=== PATIENT | female | born 1960 | race Caucasian/White ===

== ENCOUNTER → 2018-05-13 09:51 | Outpatient (CLI) | payer BC, SELFPAY ==
--- NOTE | 2018-05-13 09:55 | US_ITS ---
STUDY: RENAL ULTRASOUND - COMPLETE REASON FOR EXAM: Female, 57 years old. Chronic kidney disease TECHNIQUE: Ultrasound evaluation of the kidneys was performed with real-time and static daniel-scale imaging. COMPARISON: None. FINDINGS: RIGHT KIDNEY: Normal location of the right kidney, which is normal in size. The right kidney measures 10.5 x 3.5 x 4.9 cm. There is a normal cortex of the right kidney. The renal cortex measures 1.5 cm. There is no right renal mass or cyst. There are no right renal calculi. There is an extrarenal pelvis versus mild hydronephrosis. DISTAL RIGHT URETER: There is non-visualization of the distal right ureter. There is no demonstrated right ureterovesical junction calculus. There is a visualized right ureteral jet. LEFT KIDNEY: Normal location of the left kidney, which is normal in size. The left kidney measures 10.9 x 6.5 x 4.7 cm. There is a normal cortex of the left kidney. The renal cortex measures 1.5 cm. There is no left renal mass or cyst. There are no left renal calculi. There is mild hydronephrosis of the left kidney. DISTAL LEFT URETER: There is non-visualization of the distal left ureter. There is no demonstrated left ureterovesical junction calculus. There is a visualized left ureteral jet. BLADDER: The distended urinary bladder has a volume of 96 ml. The empty urinary bladder has a volume of 70 ml. There is a normal wall thickness of the distended urinary bladder. There is no demonstrated mass within the urinary bladder. There are no demonstrated bladder calculi. US/Kidney and Bladder IMPRESSION: 1. There is a mild right hydronephrosis versus extrarenal pelvis. 2. There is a mild left hydronephrosis. 3. 78 cc of residual urine is noted in the bladder on the postvoiding image. Electronically Signed: Carlos Almendarez MD at 22:58 EST , Service support ,
== END ==
PROVIDERS: Family Provider Family Medicine; PCP Family Medicine; Referring Provider Internal Medicine Nephrology; Visit Provider Internal Medicine Nephrology
DX: N18.3 Chronic kidney disease, stage 3 (moderate) (principal)
CPT/HCPCS: 76770

== ENCOUNTER → 2018-06-05 13:45 | Outpatient (CLI) | payer BC, SELFPAY ==
[2018-06-05 15:11] LABS: Albumin, Serum 4.2 g/dL (3.2-5.0); BUN 23 mg/dL (7-18); BUN/Creat Ratio 21.1 RATIO (10-20); Calcium,Total 8.8 mg/dL (8.5-10.1); Chloride 107 mmol/L (98-107); Creatinine, Serum 1.09 mg/dL (0.55-1.02); EST Glomerular Filtration Rate 55 mL/min (>60); Est Glom Filt Rate - Afr Amer 67 mL/min (>60); Glucose 77 mg/dL (74-106); Phosphorus 2.8 mg/dL (2.5-4.9); Potassium 3.6 mmol/L (3.5-5.1); Sodium Level 138 mmol/L (136-145)
== END ==
PROVIDERS: Family Provider Family Medicine; PCP Family Medicine; Referring Provider Internal Medicine Nephrology; Visit Provider Internal Medicine Nephrology
DX: N18.3 Chronic kidney disease, stage 3 (moderate) (principal)
CPT/HCPCS: 36415; 80069

== ENCOUNTER → 2018-06-26 16:41 | Outpatient (CLI) | payer BC, SELFPAY ==
--- NOTE | 2018-06-26 16:43 | CT_ITS ---
STUDY: CT ABDOMEN AND PELVIS WITH AND WITHOUT CONTRAST REASON FOR EXAM: Female, 57 years old. Back pain and hydronephrosis RADIATION DOSAGE (If Supplied By Facility): CTDIvol = ( 9.13 ) mGy, DLP = ( 945.04 ) mGycm TECHNIQUE: Transaxial images were obtained from the dome of the diaphragm to the symphysis pubis without oral contrast. 100CC IV Isovue 300 was administered. Sagittal and coronal images were reconstructed. Individualized dose optimization techniques were used for this CT. COMPARISON: None. FINDINGS: The visualized lung bases are unremarkable. The visualized portions of the heart are within normal limits. Normal liver. Contracted thick-walled gallbladder without calcified stones possibly physiologic. If concern for gallbladder disease ultrasound recommended.. Normal spleen. Normal pancreas. Normal bilateral adrenal glands. No evidence for renal obstruction or ureteral calculus. There is a small cyst in left kidney. Normal visualized stomach. Normal small intestine. There is diffuse fecal retention within the colon and minor diverticular changes without evidence for acute diverticulitis. The appendix is visualized and appears normal. Atherosclerotic changes of the aorta without evidence for aneurysm. Normal inferior vena cava. Normal retroperitoneum. Normal urinary bladder. There is prominence of the pelvic vasculature shoulder which may be consistent with pelvic congestive type changes. Normal abdominal wall. Lumbar spine demonstrates mild spondylosis CT/CT Abd/Pelvis W/WO Contrast IMPRESSION: Contracted thick-walled gallbladder without calcified stones possibly physiologic. If concern for gallbladder disease ultrasound recommended. Diffuse fecal retention within the colon and minor diverticular changes without evidence for acute diverticulitis. Prominent pelvic vascularity which may be on the basis of pelvic congestive type changes. Electronically Signed: Jarocho Rodriguez MD at 20:49 EDT , Service support ,
== END ==
PROVIDERS: Family Provider Family Medicine; PCP Family Medicine; Referring Provider Urology; Visit Provider Urology
DX: N13.30 Unspecified hydronephrosis (principal)
CPT/HCPCS: 74178; Q9967

== ENCOUNTER → 2018-11-21 15:00 | Outpatient (CLI) | payer BC, SELFPAY ==
[2018-11-21 16:23] LABS: Albumin, Serum 3.8 g/dL (3.2-5.0); BUN 22 mg/dL (7-18); BUN/Creat Ratio 18.3 RATIO (10-20); Calcium,Total 8.8 mg/dL (8.5-10.1); Chloride 106 mmol/L (98-107); EST Glomerular Filtration Rate 49 mL/min (>60); Est Glom Filt Rate - Afr Amer 60 mL/min (>60); Glucose 77 mg/dL (74-106); Phosphorus 3.2 mg/dL (2.5-4.9); Potassium 3.9 mmol/L (3.5-5.1); Sodium Level 142 mmol/L (136-145)
== END ==
PROVIDERS: Family Provider Family Medicine; PCP Family Medicine; Referring Provider Internal Medicine Nephrology; Visit Provider Internal Medicine Nephrology
DX: N18.3 Chronic kidney disease, stage 3 (moderate) (principal)
CPT/HCPCS: 36415; 80069

== ENCOUNTER → 2018-12-02 09:09 | Outpatient (CLI) | payer BC, SELFPAY ==
--- NOTE | 2018-12-02 09:12 | NM_ITS ---
CLINICAL: 58-year-old female with reported history of hydronephrosis. 99m Tc MAG3 DIURETIC RENAL SCINTIGRAPHY COMPARISON: CT of the abdomen-pelvis report 06/26/2018, renal ultrasound report 05/13/2018 FINDINGS: Following the intravenous administration of 10.8 mCi of 99m Tc MAG3, renal images reveal: 1. The flow study demonstrates normal arterial phase distribution of the radiopharmaceutical to the bilateral kidneys. 2. Immediate static delayed nephrogram images depict prompt, homogeneous tracer uptake by the renal parenchyma of both kidneys. Collecting structure visualization is identified at 4 minutes following tracer injection bilaterally. Washout of the radiopharmaceutical by the renal parenchyma appears qualitatively normal in both kidneys. There is near complete spontaneous drainage of the right and left kidney collecting systems during 18 minutes of pre-Lasix sequential image acquisition. 3. The akzof-cy-cnky ratio of total renal parenchymal function was calculated to be 51/49. Furosemide 10 mg was administered intravenously. The post Lasix T 1/2 washout of the bilateral kidney residual collecting system activity was calculated to be < 10 minutes, (normal < 10 minutes). NM/Renal Scan w/o Pharm Interven IMPRESSION: 1. There is preservation of bilateral renal parenchymal-cortical function. 2. A normal physiologic response to induced diuresis is demonstrated in the right and left kidney collecting systems negating the presence of significant mechanical and/or functional obstruction. Electronically Signed: Jackson Eason DO at 10:06 EDT Tel , Service support ,
== END ==
PROVIDERS: Family Provider Family Medicine; PCP Family Medicine; Referring Provider Internal Medicine Nephrology; Visit Provider Internal Medicine Nephrology
DX: N13.30 Unspecified hydronephrosis (principal)
CPT/HCPCS: 78707; A9562

== ENCOUNTER → 2019-01-20 16:05 | Outpatient (CLI) | payer BC, SELFPAY ==
[2019-01-20 18:10] LABS: Albumin, Serum 3.8 g/dL (3.2-5.0); BUN 27 mg/dL (7-18); Calcium,Total 8.9 mg/dL (8.5-10.1); Chloride 105 mmol/L (98-107); Creatinine, Serum 1.04 mg/dL (0.55-1.02); EST Glomerular Filtration Rate 58 mL/min (>60); Est Glom Filt Rate - Afr Amer 70 mL/min (>60); Glucose 82 mg/dL (74-106); Phosphorus 3.5 mg/dL (2.5-4.9); Potassium 3.8 mmol/L (3.5-5.1); Sodium Level 138 mmol/L (136-145)
== END ==
PROVIDERS: Family Provider Family Medicine; PCP Family Medicine; Referring Provider Internal Medicine Nephrology; Visit Provider Internal Medicine Nephrology
DX: N18.3 Chronic kidney disease, stage 3 (moderate) (principal)
CPT/HCPCS: 36415; 80069

== ENCOUNTER 2024-10-03 05:16 | Day surgery (SDC) | payer BC, SELFPAY ==
[2024-10-03] VITALS (8 sets, daily range): BP systolic 96–121; BP diastolic 65–73; PULSE 50–62; RESP 14–16; TEMP 36.1–36.6; O2SAT 98–100; BMI 22.6
--- OUTSIDE RECORDS SUMMARY | 2024-10-03 05:19 | XMS RPT_ITS | CCD ---
Author Organization [facility] Care Team Providers Care Budget Engineer Name Role Phone Belkys Jarvis Primary Care Provider [phone] SIMONA GARCIA, BELKYS Fernández Primary Care Physician [phone] Belkys Jarvis Primary Care Provider [phone] Belkys Jarvis Primary Care Provider [phone] TASIA BARREL SCRAPER-ASSISTANT PROFESSOR OF ANTHROPOLOGY, DAJA A Primary Care Physi obdulia TASIA BARREL SCRAPER-ASSISTANT PROFESSOR OF ANTHROPOLOGY, DAJA A Attending Un available TASIA BARREL SCRAPER-ASSISTANT PROFESSOR OF ANTHROPOLOGY, DAJA A Primary Care Un available TASIA BARREL SCRAPER-ASSISTANT PROFESSOR OF ANTHROPOLOGY, DAJA A Attending Un available TASIA BARREL SCRAPER-ASSISTANT PROFESSOR OF ANTHROPOLOGY, DAJA A Primary Care Un available JEANNE FRANCO MD Attending Unavaila thais JARVIS MD, BELKYS Fernández Primary Care Unavailable DITCHANTONIA ZURITA DO Attending Unavailable TASIA BARREL SCRAPER-ASSISTANT PROFESSOR OF ANTHROPOLOGY, DAJA A Primary Care Un available Tasia ICING AND GLAZE MAKER-C, Daja Primary Care Provider [phone] Tasia ICING AND GLAZE MAKER-C, Daja Referring Provider [phone] Dr. Darrell Barney MD Attending Provider [phone] Dr. Darrell Barney MD Referring Provider [phone] Jerrica Esquivel Attending Provider [phone] TASIA BARREL SCRAPER-ASSISTANT PROFESSOR OF ANTHROPOLOGY, DAJA A Attending Un available TASIA BARREL SCRAPER-ASSISTANT PROFESSOR OF ANTHROPOLOGY, DAJA A Primary Care Un available TASIA BARREL SCRAPER-ASSISTANT PROFESSOR OF ANTHROPOLOGY, DAJA A Primary Care Un available ANTONIA MOJICA DO Admitting Unavailable ANTONIA MOJICA DO Attending Unavailable TASIA BARREL SCRAPER-ASSISTANT PROFESSOR OF ANTHROPOLOGY, DAJA A Primary Care Un available TASIA BARREL SCRAPER-ASSISTANT PROFESSOR OF ANTHROPOLOGY, DAJA A Attending Un available TASIA BARREL SCRAPER-ASSISTANT PROFESSOR OF ANTHROPOLOGY, DAJA A Attending Un available TASIA BARREL SCRAPER-ASSISTANT PROFESSOR OF ANTHROPOLOGY, DAJA A Primary Care Un available TASIA BARREL SCRAPER-ASSISTANT PROFESSOR OF ANTHROPOLOGY, DAJA A Attending Un available TASIA BARREL SCRAPER-ASSISTANT PROFESSOR OF ANTHROPOLOGY, DAJA A Primary Care Un available JEANNE FRANCO MD Attending Unavaila ble TASIA BARREL SCRAPER-ASSISTANT PROFESSOR OF ANTHROPOLOGY, DAJA A Primary Care Un available TASIA BARREL SCRAPER-ASSISTANT PROFESSOR OF ANTHROPOLOGY, DAJA A Primary Care Un available TASIA BARREL SCRAPER-ASSISTANT PROFESSOR OF ANTHROPOLOGY, DAJA A Attending Un available CLAUDIA SCHNEIDER DO Attending Unavailable TASIA BARREL SCRAPER-ASSISTANT PROFESSOR OF ANTHROPOLOGY, DAJA A Primary Care Un available ARTURAILEEN Escudero Attending Unavailable SIMONA, BELKYS BERMAN Primary Care Unavailab le ARTUR, AILEEN Attending Unavailable SIMONA, BELKYS BERMAN Primary Care Unavailab le ARTUR, AILEEN Attending Unavailable SIMONA, BELKYS BERMAN Primary Care Unavailab Daja Avina Primary Care Unavailable Darrell Barnye Referring Unavailable Darrell Barney Attending Unavailable Tasia Daja Primary Care Unavailable Daja Dozier Referring Unavailable Jerrica Cowan Attending Unavailable Daja Dozier Referring Unavailable Breann Dozierzabeth Primary Care Unavailable Darrell Barney Attending Unavailable Breann Dozierzabeth Primary Care Unavailable Darrell Barney Attending Unavailable Daja Dozier Referring Unavailable Breann Dozierzabeth Primary Care Unavailable Darrell Barney Attending Unavailable Amber Posada Attending Unavailable Belkys Morejon Primary Care Unavailable Tasia, Daja Primary Care Unavailable Td Wood Attending Unavailable Medications Current Medications Medication Drug Class(es) Dates Sig (Normalized) Sig (Original) Amino Acids (1 source) Start: 11-21-2023 Amino Acids powder Active NMA PO November 21, 2023 12:00am 24 hr buPROPion hydrochloride 300 mg extended release oral tablet (4 sources) Aminoketone Start: 08-25-2024 take 1 tablet by mouth once daily buPROPion XL (WELLBUTRIN XL) 300 mg 24 hr tablet Take 1 tablet by mouth once daily. 30 tablet 08/25/2024 Active Start: 07-21-2024 End: 08-25-2024 take 1 tablet by mouth once daily buPROPion XL (WELLBUTRIN XL) 150 mg 24 hr tablet Take 1 tablet by mouth once daily. 30 tablet 1 07/21/2024 08/25/2024 Discontinued chorionic gonadotropin 24927 unt/ml injectable solution (1 source) Gonadotropin Start: 11-21-2023 Chorionic Gonadotropin, Human 10,000 unit recon soln Active 2 U IM November 21, 2023 12:00am citalopram 20 mg oral tablet (20 sources) Serotonin Reuptake Inhibitor Start: 12-13-2023 End: 07-21-2024 take 1 tablet by mouth once daily citalopram hydrobromide (CELEXA) 10 mg tablet Take 1 tablet by mouth once daily. 15 tablet 12/13/2023 07/21/2024 Discontinued Start: 09-29-2019 End: 02-17-2025 citalopram 20 mg oral tablet Dose : 20 mg = 1 tab(s), Oral, qDay, # 90 tab(s), 0 Refill(s) Start Date: 06/25/24 Status: Ordered Quantity: 90.0 Unit: tab(s) Repeat number: 1 Comment on above: Take 1 tablet by jose th once daily. estradiol 1 mg oral tablet (20 sources) Estrogen Start: 02-02-20 End: 12-20-19 take 1 tablet by mouth once daily estradiol (ESTRACE) 1 mg tablet Take 1 tablet by mouth once daily. 90 tablet 3 12/21/2023 Active Comment on above: Take 1 tablet by jose th once daily. levothyroxine sodium 0.088 mg oral tablet (20 sources) l-Thyroxine Start: 08-26-19 take 1 tablet by mouth once daily before breakfast levothyroxine (SYNTHROID) 88 mcg tablet Take 1 tablet by mouth daily before breakfast. 90 tablet 08/25/2024 Active Start: 07-05-2024 take 1 tablet by jose th two times weekly levothyroxine (SYNTHROID) 88 mcg tablet Take 88 mcg by mouth two times a week. 07/05/2024 Active Start: 06-27-2024 levothyroxine 88 mcg (0.088 mg) oral tablet See Instructions, 1 tab(s) Oral Tu Thur. 75mcg AOD., 0 Refill(s) Start Date: 06/27/24 Status: Ordered Repeat number: 1 Start: 05-07-2024 End: 08-05-2024 Levoxyl 75 mcg (0.075 mg) or al tablet Dose : 75 mcg = 1 tab(s), Oral, qDay, except 88mcg Tu Thur, # 30 tab(s), 2 Refill(s), [id number], 166.5, cm, 02/13/24 7:19:00 EST, Height, kg, 02/13/24 7:19:00 EST, Dosing Weight Start Date: 05/07/24 Stop Date: 08/05/24 Status: Ordered Quantity: 30.0 Unit: tab(s) Repeat number: 3 Start: 02-08-2024 End: 06-01-2024 Levoxyl 88 mcg (0.088 mg) or al tablet Dose : 88 mcg = 1 tab(s), Oral, qDay, # 60 tab(s), 0 Refill(s), [id number], 166.5, cm, 02/13/24 7:19:00 EST, Height, kg, 02/13/24 7:19:00 EST, Dosing Weight Start Date: 04/02/24 Stop Date: 06/01/24 Status: Ordered Quantity: 60.0 Unit: tab(s) Repeat number: 1 Start: 10-03-2023 Levoxyl 75 mcg (0.075 mg) oral tablet See Instructions, one daily except Sunday take a 1/2 tablet, 0 Refill(s) Start Date: 10/03/23 Status: Ordered Start: 05-11-2023 End: 11-21-2023 Levothyroxine (Levoxyl) 75 m cg tablet Discontinued ug PO May 11, 2023 1:00am November 21, 2023 1:55pm Start: 10-13-2022 Levoxyl 75 mcg (0.075 mg) oral tablet Dose : 75 mcg = 1 tab(s), Oral, qDay, # 90 tab(s), 2 Refill(s), Pharmacy: [facility], 167.6, cm, 04/27/22 15:03:00 EST, Height, kg, 04/27/22 15:03:00 EST, Dosing Weight Start Date: 10/13/22 Status: Ordered Start: 05-01-2022 Levoxyl 100 mc g (0.1 mg) oral tablet Dose : 100 mcg = 1 tab(s), Oral, qDay, # 90 tab(s), 3 Refill(s), Pharmacy: [facility], 167.6, cm, 04/27/22 15:03:00 EST, Height, kg, 04/27/22 15:03:00 EST, Dosing Weight Start Date: 05/01/22 Status: Ordered Start: 04-27-2022 Levoxyl 75 mcg (0.075 mg) oral tablet Dose : 75 mcg = 1 tab(s), Oral, qDay, # 90 tab(s), 1 Refill(s), [facility], 167.6, cm, 04/27/22 15:03:00 EST, Height Start Date: 04/27/22 Status: Ordered Start: 06-03-2021 Levoxyl 100 mc g (0.1 mg) oral tablet Dose : 100 mcg = 1 tab(s), Oral, qDay, # 90 tab(s), 3 Refill(s), Pharmacy: [facility], 167.6, cm, 06/02/21 15:09:00 EDT, Height, kg, 06/02/21 15:09:00 EDT, Dosing Weight Start Date: 06/03/21 Status: Ordered Start: 06-03-2021 End: 08-25-2024 take 1 tablet by mouth once daily levothyroxine (LEVOXYL) 75 mcg tablet Take 75 mcg by mouth once daily. 06/03/2021 08/25/2024 Discontinued Start: 04-11-2021 End: 07-21-2024 levothyroxine (SYNTHROID) 10 0 mcg tablet Changed to 75 mcg daily June 2022 04/11/2021 07/21/2024 Discontinued (Course of therapy completed) Start: 04-11-2021 levothyroxine (SYNTHROID) 100 mcg tablet Dose : 100 mcg = 1 tab(s), Oral, qDay, # 90 tab(s), 3 Refill(s), Pharmacy: [facility], 167.6, cm, 09/08/20 15:44:00 EDT, Height, kg, 09/08/20 15:44:00 EDT, Dosing Weight 0 04/11/2021 Active Start: 07-24-2019 End: 09-29-2022 take 1 tablet by mouth once daily levothyroxine (SYNTHROID) 88 mcg tablet Indications: Postablative hypothyroidism Take 1 tablet by mouth once daily. 90 tablet 3 07/24/2019 09/29/2022 Discontinued (Dosage adjustment) Comment on above: Take 1 tablet by [facility] once daily. Dose : 100 mcg = 1 tab(s), Oral, qDay, # 90 tab(s), 3 Refill(s), Pharmacy: [facility], 167.6, cm, 09/08/20 15:44:00 EDT, Height, kg, 09/08/20 15:44:00 EDT, Dosing Weight Changed to 75 mcg da noa June 2022 liothyronine sodium 0.005 mg oral tablet (20 sources) l-Triiodothyronine Start: 10-10-2023 liothyronine 5 mcg oral tablet See Instructions, 2 tab(s) Oral . 1 tab(s) AOD. 90 day(s), # 180 tab(s), 3 Refill(s), Pharmacy: [facility] 166.5, cm, 10/03/23 15:51:00 EDT, Height, kg, 10/03/23 15:51:00 EDT, Dosing Weight Start Date: 10/10/23 Status: Ordered Quantity: 180.0 Unit: tab(s) Repeat number: 4 Start: 10-10-2023 End: 10-04-2024 liothyronine 5 mcg oral tabl et Dose : 10 mcg = 2 tab(s), Oral, qDay, # 180 tab(s), 3 Refill(s), Pharmacy: [facility] 166.5, cm, 10/03/23 15:51:00 EDT, Height, kg, 10/03/23 15:51:00 EDT, Dosing Weight Start Date: 10/10/23 Stop Date: 10/04/24 Status: Ordered Quantity: 180.0 Unit: tab(s) Repeat number: 4 Start: 09-24-2023 liothyronine 5 mcg oral tablet Dose : 15 mcg = 3 tab(s), Oral, qDay, # 42 tab(s), 0 Refill(s), Pharmacy: [facility] #[id number], 167.7, cm, 05/15/23 15:35:00 EST, Height, kg, 05/15/23 15:35:00 EST, Dosing Weight Start Date: 09/24/23 Status: Ordered Start: 05-01-2022 liothyronine 5 mcg oral tablet Dose : 15 mcg = 3 tab(s), Oral, qDay, # 270 tab(s), 3 Refill(s), Pharmacy: [facility], 167.6, cm, 04/27/22 15:03:00 EST, Height, kg, 04/27/22 15:03:00 EST, Dosing Weight Start Date: 05/01/22 Status: Ordered Start: 12-21-2021 liothyronine 5 mcg oral tablet Dose : 15 mcg = 3 tab(s), Oral, qDay, # 270 tab(s), 3 Refill(s), Pharmacy: [facility], 167.6, cm, 06/02/21 15:09:00 EDT, Height, kg, 06/02/21 15:09:00 EDT, Dosing Weight Start Date: 12/21/21 Status: Ordered Start: 07-24-2019 End: 11-21-2023 take 1 tablet by mouth once daily liothyronine (CYTOMEL) 5 mcg tablet Indications: Postablative hypothyroidism Take 1 tablet by mouth once daily. 90 tablet 3 07/24/2019 Active Comment on above: Take 1 tablet by jose once daily. Magnesium (9 sources) Start: 11-21-2023 take 2 tablets by mouth once daily Magnesium 250 mg tablet Active 500 mg PO daily November 21, 2023 12:00am MAGNESIUM ORAL T vidya by mouth. Active PEG-3350 with Electrolytes (Eqv-GoLYTELY) oral powder for reconstitution (1 source) Start: 01-09-2024 PEG-3350 with Electrolytes (Eqv-GoLYTELY) oral powder for reconstitution See Instructions, Take as directed starting 1 day before colonoscopy. Follow instructions as provided by your GI provider at [place]., # 1 EA, 0 Refill(s), Pharmacy: [facility]/pharm[facility] #[id number], Colon cancer screening, 166.5, cm, 01/09/24 15:55:00 EDT, Height, kg, 01/09/24 15:55:00 EDT, Dosing Weight Start Date: 01/09/24 Status: Ordered progesterone 100 mg oral capsule (20 sources) Progesterone Start: 02-02-2020 End: 12-20-2023 take 1 capsule by mouth once daily progesterone micronized (PROMETRIUM) 100 mg capsule Take 1 capsule by mouth once daily. 90 capsule 3 12/21/2023 Active Comment on above: Take 1 capsule by mo ut once daily. testosterone in cream base (CPD) (20 sources) Start: 07-07-2024 testosterone in cream base (CPD) Indications: Hormone replacement therapy (postmenopausal) Apply 1 g to affected area once daily. Comments for compounding pharmacy: Testosterone cream 25MG/2.5Gm 1 each 1 07/07/2024 Active Start: 03-27-2024 End: 07-07-2024 testosterone in cream base ( CPD) Indications: Hormone replacement therapy (postmenopausal) Apply 1 g to affected area once daily. Comments for compounding pharmacy: Testosterone cream 25MG/2.5Gm 1 Each 1 03/27/2024 07/07/2024 Discontinued Start: 03-27-2024 testosterone i n cream base (CPD) Indications: Hormone replacement therapy (postmenopausal) Apply 1 g to affected area once daily. Comments for compounding pharmacy: Testosterone cream 25MG/2.5Gm 1 Each 1 03/27/2024 Active Start: 11-20-2023 End: 03-26-2024 testosterone in cream base ( CPD) Indications: Hormone replacement therapy (postmenopausal) Apply 1 g to affected area once daily. Comments for compounding pharmacy: Testosterone cream 25MG/2.5Gm 1 Each 1 11/20/2023 03/26/2024 Discontinued Start: 11-20-2023 testosterone i n cream base (CPD) Indications: Hormone replacement therapy (postmenopausal) Apply 1 g to affected area once daily. Comments for compounding pharmacy: Testosterone cream 25MG/2.5Gm 1 Each 1 11/20/2023 Active Start: 04-02-2023 End: 11-20-2023 testosterone in cream base ( CPD) Indications: Hormone replacement therapy (postmenopausal) Apply 1 g to affected area once daily. Comments for compounding pharmacy: Testosterone cream 25MG/2.5Gm 1 Each 1 04/02/2023 11/20/2023 Discontinued Start: 04-02-2023 testosterone i n cream base (CPD) Indications: Hormone replacement therapy (postmenopausal) Apply 1 g to affected area once daily. Comments for compounding pharmacy: Testosterone cream 25MG/2.5Gm 1 Each 1 04/02/2023 Active Start: 09-29-2022 testosterone i n cream base (CPD) Indications: Hormone replacement therapy (postmenopausal) Apply 1 g to affected area once daily. Comments for compounding pharmacy: Testosterone cream 25MG/2.5Gm 1 Each 1 09/29/2022 Active Start: 09-14-2021 End: 09-29-2022 testosterone in cream base ( CPD) Indications: Low testosterone level in female Apply 1 g to affected area once daily. Comments for compounding pharmacy: Testosterone cream 25MG/2.5Gm 1 Each 1 09/14/2021 09/29/2022 Discontinued Start: 09-14-2021 testosterone i n cream base (CPD) Indications: Low testosterone level in female Apply 1 g to affected area once daily. Comments for compounding pharmacy: Testosterone cream 25MG/2.5Gm 1 Each 1 09/14/2021 Active Start: 05-30-2021 End: 09-14-2021 testosterone in cream base ( CPD) Indications: Low testosterone level in female Apply 1 g to affected area once daily. Comments for compounding pharmacy: Testosterone cream 25MG/2.5Gm 1 Each 1 05/30/2021 09/14/2021 Discontinued Comment on above: Apply 1 g to affecte d area once daily. Comments for compounding pharmacy: Testosterone cream 25MG/2.5Gm topiramate 25 mg oral tablet (3 sources) Start: 10-17-2019 End: 09-14-2021 topiramate 25 mg oral tablet Dose : 25 mg = 1 tab(s), Oral, qDay, # 90 tab(s), 3 Refill(s), [facility], 167.6, cm, 09/08/20 15:44:00 EDT, Height, kg, 09/08/20 15:44:00 EDT, Dosing Weight Start Date: 04/11/21 Status: Ordered Completed/Discontinued Medications Medication Drug Class(es) Dates Sig (Normalized) Sig (Original) [id number] 200 actuat albuterol 0.09 mg/actuat metered dose inhaler (5 sources) beta2-Adrenergic Agonist Start: 09-22-2021 End: 09-29-2022 take 2 puff(s) by inhalation every four hours as needed for wheezing albuterol HFA (PROVENTIL HFA, VENTOLIN HFA) 90 mcg/actuation inhaler Indications: Acute bronchitis, unspecified organism Inhale 2 Puffs as instructed every 4 hours as needed for wheezing/shortness of breath. 1 Inhaler 0 09/22/2021 09/29/2022 Discontinued Comment on above: Inhale 2 Puffs as in structed every 4 hours as needed for wheezing/shortness of breath. amoxicillin 500 mg oral capsule (2 sources) Penicillin-class Antibacterial Start: 05-11-2023 End: 05-18-2023 take 1 capsule by mouth every eight hours Amoxicillin 500 mg capsule Discontinued 500 mg PO Q8H 06 10May 11, 2023 1:00am May 17, 2023 1:00am May 18, 2023 1:04am Start: 12-28-2021 End: 01-07-2022 take 1 tablet by mouth twice daily amoxicillin (AMOXIL) 875 mg tablet Indications: Acute maxillary sinusitis, recurrence not specified Take 1 tablet by mouth twice daily for 10 days. 20 tablet 0 12/28/2021 01/07/2022 Active Comment on above: Take 1 tablet by jose twice daily for 10 days. azithromycin 250 mg oral tablet (4 sources) Macrolide Antimicrobial Start: 09-22-2021 End: 09-29-2022 azithromycin (ZITHROMAX Z-SHELLEY) 250 mg tablet Indications: Acute bronchitis, unspecified organism 2 tablets by mouth first day then 1 tablet the next 4 days 6 tablet 0 09/22/2021 09/29/2022 Discontinued Comment on above: 2 tablets by mouth f irst day then 1 tablet the next 4 days B6/folic/B12/coffee/phos phatid (NEURIVA PLUS ORAL) (6 sources) End: 09-29-2022 B6/folic/B12/coffee/morgan sphatid (NEURIVA PLUS ORAL) Take by mouth. gummy 0 09/29/2022 Discontinued (Discontinued by Patient) B6/folic/B12/cof fee/phosphatid (NEURIVA PLUS ORAL) Take by mouth. gummy 0 Active Comment on above: Take by mouth. gummy calcium carb,gluc/mag ox,gluc (CALCIUM MAGNESIUM ORAL) (7 sources) End: 09-29-2022 calcium carb,gluc/mag ox,gluc (CALCIUM MAGNESIUM ORAL) Take by mouth. 0 09/29/2022 Discontinued (Other) calcium carb,glu c/mag ox,gluc (CALCIUM MAGNESIUM ORAL) Take by mouth. 0 Active Comment on above: Take by mouth. COMPOUNDED PRESCRIPTION (7 sources) Start: 08-06-2018 End: 09-29-2022 COMPOUNDED PRESCRIPTION Testosterone 25MG/2.5 GM Cream Apply 1 Gram (4 Clicks) Topically Every Day As Directed 1 Tube 2 08/06/2018 09/29/2022 Discontinued (Duplicate Entry) Start: 08-06-2018 COMPOUNDED PRE SCRIPTION Testosterone 25MG/2.5 GM Cream Apply 1 Gram (4 Clicks) Topically Every Day As Directed 1 Tube 2 08/06/2018 Active Comment on above: Testosterone 25MG/2. 5 GM Cream Apply 1 Gram (4 Clicks) Topically Every Day As Directed methylPREDNISolone 4 mg oral tablet (4 sources) Corticosteroid Start: 2021 End: 2022 methylPREDNISolone (MEDROL, SHELLEY,) 4 mg Dose-Pack Indications: Acute bronchitis, unspecified organism Take by mouth per package instructions 1 Package 0 09/22/2021 09/29/2022 Discontinued Comment on above: Take by mouth per pa ckage instructions Multivitamin capsule (2 sources) End: 2021 take 1 capsule by mouth once daily Multivitamin capsule Take 1 capsule by mouth once daily. 0 09/14/2021 Discontinued Comment on above: [facility]. prasterone, DHEA, (DHEA ORAL) (2 sources) End: 2021 prasterone, DHEA, (DHEA ORAL) Take by mouth. 0 09/14/2021 Discontinued Comment on above: Take by mouth. 5000 mg testosterone 0.01 mg/mg topical gel (1 source) Androgen Start: 2023 End: 2023 Testosterone 50 mg/5 gram (1 %) gel Discontinued 1 NMA TD EVERY MORNING May 11, 2023 1:00am November 14, 2023 3:28pm [id number]-OREG- CAPRYL ORAL (10 sources) End: 2023 [id number]-OREG -CAPRYL ORAL Take by mouth once daily. 12/13/2023 Discontinued [id number] [id number]-[id number]-[id number] ORAL Take by mouth once daily. Active [id number]-TOPI-DGO [id number] ORAL Take by mouth once daily. 0 Active GUDCROR-UNMN-IEM HV-CEQQ-MCIWPM ORAL Take by mouth. 0 Active Comment on above: Take by mouth. Take by mouth once d aily. 24 hr venlafaxine 37.5 mg extended release oral capsule (2 sources) Serotonin and Norepinephrine Reuptake Inhibitor Start: 11-05-19 End: 09-15-19 22 take 1 capsule by mouth once daily venlafaxine ER (EFFEXOR XR) 37.5 mg 24 hr capsule Take 1 capsule by mouth once daily. 30 capsule 1 11/04/2020 09/14/2021 Discontinued Comment on above: Take 1 capsule [facility]. Problems Active Problems Problem Classification Problem Date Documented Date Episodic/Chronic Acute bronchitis (1 source) Acute bronchitis; Translations: [Acute bronchitis, unspecified] Episodic Cancer of thyroid (20 sources) Malignant tumor of thyroid gland; Translations: [Malignant neoplasm of thyroid gland] Onset: 07-06-2016 07-31-2005 Chronic Chronic kidney disease (20 sources) Chronic kidney disease stage 3; Translations: [Stage 3 chronic kidney disease] Onset: 09-29-2022 02-02-2020 Chronic Complications of surgical procedures or medical care (18 sources) Postablative hypothyroidism; Translations: [Postprocedural hypothyroidism] Onset: 07-06-2016 07-06-2016 Chronic Diseases of white blood cells (4 sources) Leukopenia; Translations: [Decreased white blood cell count, unspecified] Onset: 05-28-2024 11-28-2023 Chronic Comment on above: Discussed Leukopenia , her counts are normal now. Malaise and fatigue (1 source) Fatigue; Translations: [Other fatigue] 07-21-2024 Episodic Menopausal disorders (18 sources) Menopausal symptom; Translations: [Menopausal and female climacteric states] 09-10-2018 Chronic Menopausal disorders (20 sources) Long-term current use of testosterone replacement therapy; Translations: [Hormone replacement therapy] Onset: 07-06-2016 Episodic Mood disorders (20 sources) Depressive disorder; Translations: [Depression] Onset: 07-06-2016 07-06-2016 Chronic Other diseases of kidney and ureters (1 source) Kidney disease; Translations: [Disorder of kidney and ureter, unspecified] 05-11-2023 Episodic Other lower respiratory disease (2 sources) Cough; Translations: [Acute cough] Episodic Other nervous system disorders (9 sources) Disturbance of attention 05-18-2020 Chronic Other upper respiratory infections (1 source) Acute maxillary sinusitis; Translations: [Acute maxillary sinusitis, unspecified] Episodic Otitis media and related conditions (1 source) Acute left otitis media; Translations: [Otitis media, unspecified, left ear] 05-11-2023 Episodic Poisoning by other medications and drugs (8 sources) Poisoning by vitamin D 04-27-2022 Episodic Thyroid disorders (11 sources) Hypothyroidism; Translations: [Hypothyroidism, unspecified] 02-02-2020 Chronic Thyroid disorders (1 source) Thyroid dysfunction; Translations: [Disorder of thyroid, unspecified] Episodic Unclassified (9 sources) History of total thyroidectomy 05-13-2020 Unclassified (6 sources) Patient encounter status 10-03-2023 Past or Other Problems Problem Classification Problem Date Documented Da te Episodic/Chronic Headache; including migraine (17 sources) Headache disorder; Translations: [Headache disorder] Onset: 07-06-2016 Resolved: 09-29-2022 07-06-2016 Episodic Nutritional deficiencies (20 sources) Vitamin D deficiency; Translations: [Vitamin D deficiency, unspecified] Onset: 07-06-2016 Resolved: 09-29-2022 07-06-2016 Chronic Other screening for suspected conditions (not mental disorders or infectious disease) (20 sources) Patient encounter status; Translations: [Encounter for screening mammogram for malignant neoplasm of breast] Onset: 03-22-2018 Resolved: 09-29-2022 Episodic Results Test Name Value Interpretation Reference Range Facility FT3on 08-23-2024 Free T3 [Mass/Vol] 2.16 pg/mL Low 2.30-4.00 [facility] Comment on above: Performed By: #### F T4, TSH, FT3 #### [address] [address] FT4on 08-23-2024 Free T4 [Mass/Vol] 0.69 ng/dL Low 0.76-1.46 [facility] Comment on above: Performed By: #### F T4, TSH, FT3 #### [address] [address] LABORATORYOrdered By: SYSTEM SYSTEM on 08-23-2024 Free T3 [Mass/Vol] 2.16 pg/mL Low 2.30 - 4. 00 pg/mL AO ADM SS Free T4 [Mass/Vol] 0.69 ng/dL Low 0.76 - 1. 46 ng/dL AO ADM SS TSH Qn 9.81 m[IU]/L High 0.36 - 3.74 mcIU/mL AO ADM SS TSHon 08-23-2024 TSH Qn 9.81 m[IU]/L High 0.36-3.74 [facility] Comment on above: Performed By: #### F T4, TSH, FT3 #### [address] [address] [place] MAMMOGRAM SCREENING BILAT ERAL W/TOMOon 08-08-2024 [facility] MAMMOGRAM SCREENING BILATERAL W/TIGIST ORIGINAL FROM: [address] [address] [address] PROCEDURE FOR: [address] [place] [address] Home: PID#: [id number] Exam#: [id number] : 1960 Age: 63 TO: DAJA DOZIER APRN [place] [address] Fax: NO FAX EXAMINATION: SCREENING DIGITAL BILATERAL MAMMOGRAM WITH TOMOSYNTHESIS, 07/17/2024 2:48 pm TECHNIQUE: Screening mammography of the bilateral breasts was performed with tomosynthesis. 2D standard and 3D tomosynthesis combination imaging performed through both breasts in the MLO and CC projection. Computer aided detection was utilized in the interpretation of this exam. COMPARISON: 03/24/2019, 03/23/2017 HISTORY: Breast cancer screening. FINDINGS: BREAST DENSITY: The breasts are heterogeneously dense, which may obscure small masses. There are bilateral benign breast calcifications. There are no significant masses or calcifications. IMPRESSION: No mammographic evidence of malignancy. Continued screening with annual mammograms is recommended. [facility] risk calculations, generated with the history provided, report this patient's 10 year risk and lifetime risk for developing breast cancer at 3.3% and 7.9%, respectively. Based on this assessment tool, if the patient's calculated lifetime risk is below 20%, then the patient is considered at average risk for developing breast cancer. If the patient's calculated lifetime risk is at or above 20%, then the patient is considered high risk for developing breast cancer and may be a candidate for supplemental breast MRI screening in addition to annual mammographic screening per the [employer]. BIRADS: BI-RADS: 2: Benign RECALL: 1 year screening RECALL TYPE: mammo LETTER SENT: Normal BI-RADS 1 and 2 Interpreted by: Aidan Alvarez MD Preliminary Report By: Aidan Alvarez MD Electronically signed By Aidan Alvarez MD Dictated Date: 08/08/2024 5:11:51 PM Prelim Date: 08/08/2024 5:15:21 PM Sign Date: 08/08/2024 5:15:21 PM Ordering Provider: DAJA DOZIER Extern: CORTES FLORES letter sent: Normal BI-RADS 1 and 2 Mammogram BI-RADS: 2 Benign Normal [facility] Gastroenterology Visit Repor ton 07-30-2024 Gastroenterology Visit Report [facility]astroenterology [address] [place] [address] OFFICE VISIT Date of Service: 07/30/24 MR#: [id number] Acct: [id number] Name: ЮЛИЯ SEQUEIRA Rep #: [id number] : 1960 Provider: MARY Caruso Age/Sex: 63/F [place] [facility] [place] Status: Signed Intake Vital Signs 05/28/24 16:02 Height 5 ft 6 in Weight: 140 lb 3 oz BMI 22.6 BP 127/82 H Blood Pressure Location Lt brachial Position Sitting Respiration 16 Pulse 64 Pulse Source Monitor Temp 98.0 F Pulse Oximetry (%) 98 Oxygen Delivery Method room air Intake Visit Reasons: Pre scope Chief Complaint: CT showing gastritis Allergies No Known Allergies Allergy (Verified 05/28/24 16:00) Patient : No Nurse's Note: OV 07/30/24 Pt here to establish care with [facility]. Pt reports fatigue, constipation, occasional trouble swallowing, and hx of hernias. PFSH Medical History Vitamin D deficiency Thyroid cancer CKD (chronic kidney disease), stage III Neutropenia Leukopenia Renal disease Hypothyroidism Surgical History History of tubal ligation History of thyroid surgery Family History Father Cancer stomach Mother Heart disease Kidney disease Social History Smoking Status: Never smoker alcohol intake: never substance use type: does not use HPI HPI Chief Complaint: CT showing gastritis Details: ЮЛИЯ SEQUEIRA, is a 63 F who presents to the office today for establishment with [facility]. CT abd/pelvis 4..; normal spleen, mild wall thickening of the body and antrum of the stomach with increased mucosal/ submucosal inhancement. Suggestive of gastritis/peptic ulcer disease. Pt here today after referral from PCP for abnormal CT showing gastritis/peptic ulcer disease. Pt underwent CT due to intermittent left sided abdominal pain. She denies any heartburn, n/v, early satiety or weight loss. She has a family hx of gastric cancer in her father and diverticulitis in her mother. She has never had an EGD. Last colonoscopy was in Jan 2024 with normal findings. She recently was found to be hypothyroid and was started on levothyroxine. This has caused her to gain weight but she is feeling better since starting new medication ROS Const Constitutional: No anorexia, fatigue, fever(s), weight change or sleep problems Eyes Eyes: No change in vision ENT ENT: No abnormal hearing, difficulty swallowing, mouth lesions, tongue swelling or throat swelling Resp Respiratory: No cough or shortness of breath Cardio Cardiology: No chest pain at rest, chest pain with exertion, shortness of breath or dyspnea on exertion Gastro GI: Positive for constipation; No difficulty swallowing Genitourinary-Female: No difficulty urinating or burning urination Musc Musculoskeletal: No joint pain, joint swelling, muscle weakness or decreased muscle mass Skin Skin: No hair loss in leg, yellowing of the eye, itchy eyes, rash, skin ulcer or skin swelling Neuro Neurology: No abnormal hearing, abnormal movements, confusion, unsteady gait/balance or memory loss Psych Psychiatric: No anxiety, No confusion and No memory loss Endo Endocrine: No fatigue or weight change Aller/Imm Allergy/Immunologic: No itchy eyes, throat swelling or tongue swelling Santiago/Lymp Hematologic/Lymphatic : No easy bleeding, easy bruising or enlarged lymph nodes Exam Const General: cooperative and healthy appearing Nutritional Appearance: thin Orientation: alert and awake HENMT Head: normal to inspection Neck Neck: normal visual inspection Chest Chest palpation inspection: normal inspection of the chest Resp Effort Inspection: normal respiratory effort and able to speak in complete sentences Cardio Rate: regular rate Rhythm: regular rhythm GI Inspection: normal to inspection Auscultation: normal bowel sounds Palpation: soft and no hepatosplenomegaly Assessment and Plan Assessment and Plan (1) Gastritis: Status: Acute Plan: This is a 63 yo female pt here today for evaluation after CT suggestive gastritis/peptic ulcer disease. Pt denies any heartburn, n,v, early satiety or unintentional weight loss. She endorses a family hx of gastric cancer in her father. She will undergo EGd to assess her upper GI tract for inflammation, ulcer or malignancy. -EGD -F/u after procedure Coding Level of Care Code Off vis,new,level 4 Diagnoses Gastritis K29.70 07/30/24 1655 Date Jerrica Perezigncaro Signature: Date (if applicable) CC: [facility] Emilio 07-09-2024 [facility] Telephone (OBGYWM) ERMIASЮЛИЯ R ([id number]) 1960 F Date Time Provider Department 07/09/24 AILEEN SIDDIQUI During your visit today, we recorded the following information about you: Rani Hargrove LPN 07/09/2024 4:37 PM Signed Faxed second attempt 07/08/2024 to [facility] with [facility] with confirmation. Rani Hargrove LPN Allergies As of Date: 07/09/2024 (No Known Allergies) Date Reviewed: 12/13/2023 Reviewed by: Allie Pelaez MA - Fully Assessed Prescriptions as of 07/09/2024 - testosterone in cream base (CPD) Apply 1 g to affected area once daily. Comments for compounding pharmacy: Testosterone cream 25MG/2.5Gm - citalopram (CELEXA) 20 mg tablet Take 1 tablet by mouth once daily. - citalopram (CELEXA) 20 mg tablet Take 1 tablet by mouth once daily. - estradiol (ESTRACE) 1 mg tablet Take 1 tablet by mouth once daily. - progesterone micronized (PROMETRIUM) 100 mg capsule Take 1 capsule by mouth once daily. - MAGNESIUM ORAL Take by mouth. - citalopram hydrobromide (CELEXA) 10 mg tablet Take 1 tablet by mouth once daily. - levothyroxine (SYNTHROID) 100 mcg tablet Changed to 75 mcg daily June 2022 - liothyronine (CYTOMEL) 5 mcg tablet Take 1 tablet by mouth once daily. Problem List As Of Date 07/09/2024 Noted Resolved MALIGN NEOPL THYROID [C73] Postablative hypothyroidism [E89.0] 07/06/2016 Thyroid cancer (HCC) [C73] 07/06/2016 Depression [F32.A] 07/06/2016 Headache disorder [R51.9] 07/06/2016 09/29/2022 Post-menopause on HRT (hormone replacement ther*07/06/2016 Vitamin D deficiency [E55.9] 07/06/2016 09/29/2022 Encounter for screening for malignant neoplasm *03/22/2018 09/29/2022 meopause hx of ablation [N95.1] Elevated serum creatinine [R79.89] 09/29/2022 Hormone replacement therapy (HRT) [Z79.890] Stage 3 chronic kidney disease (HCC) [N18.30] 09/29/2022 Diagnosed: 09/29/2022 Encounter Status:Closed by RANI HARGROVE on 07/09/[address] [facility] [address] ABDOMEN W/ CONTRASTon CT ABDOMEN W/ CONTRAST ORIGINAL EXAMINATION: CT ABDOMEN WITH CONTRAST 06/26/2024 11:30 am TECHNIQUE: CT of the abdomen was performed with the administration of intravenous contrast. Multiplanar reformatted images are provided for review. Automated exposure control, iterative reconstruction, and/or weight based adjustment of the mA/kV was utilized to reduce the radiation dose to as low as reasonably achievable. COMPARISON: None. HISTORY: ORDERING SYSTEM PROVIDED HISTORY: Reason for Exam: enlarged spleen Pt c/o recurring hernia LUQ for years. Recently has had hernia on RUQ as well. LUQ pain on palpation during physical exam yesterday. FINDINGS: Very minor degenerative changes are noted in the spine. No other osseous abnormality seen. The lung bases are unremarkable. Liver, spleen, adrenal glands and pancreas are unremarkable. Cortical nephrograms are present. Left lower pole renal cyst present. No other definite renal lesion. The spleen is normal in size, 11.6 cm length. There is mild wall thickening and increased enhancement of the mucosa at the body and antrum of the stomach. No significant adjacent infiltrative changes are visible. No other GI tract abnormality is evident. No adenopathy, free air or free fluid seen. There is a tiny fat containing umbilical hernia present. No other abdominal wall abnormality is evident. No additional contributory finding. IMPRESSION: 1. Normal spleen. 2. Mild wall thickening of the body and antrum of the stomach with increased mucosal/submucosal enhancement. These findings suggest an element of gastritis/peptic disease. EGD as clinically appropriate. 3. No other potential acute finding. Tiny fat containing umbilical hernia. No other body wall abnormality. Interpreted by: Aidan Mcfarland MD Preliminary Report By: Aidan Mcfarland MD Electronically signed By Aidan Mcfarland MD Dictated Date: 06/26/2024 11:34:17 AM Prelim Date: 06/26/2024 11:37:58 AM Sign Date: 06/26/2024 11:37:58 AM Ordering Provider: ANTONIA Liang [facility] .Auto Diffon 06-25-2024 Basophil, Absolute 0.1 10 3/mcL Normal 0.0-0.3 [facility] Comment on above: Performed By: #### F T4, TSH, FT3 #### [address] [address] Basophils/100 WBC (Bld) 1.3 % Normal 0.0-2.5 [facility] Comment on above: Performed By: #### F T4, TSH, FT3 #### [address] [address] Eosinophil, Absolute 0.3 10 3/mcL Normal 0.0-0.7 [facility] Comment on above: Performed By: #### F T4, TSH, FT3 #### [address] [address] Eosinophils/100 WBC (Bld) 4.5 % Normal 0.0-6.0 [facility] Comment on above: Performed By: #### F T4, TSH, FT3 #### [address] [address] Lymphocyte, Absolute 2.1 10 3/mcL Normal 0.9-4.3 [facility] Comment on above: Performed By: #### F T4, TSH, FT3 #### [address] [address] Lymphocytes/100 WBC (Bld) 33.0 % Normal 20.0-40.0 [facility] Comment on above: Performed By: #### F T4, TSH, FT3 #### [address] [address] Monocyte, Absolute 0.5 10 3/mcL Normal 0.1-1.4 [facility] Comment on above: Performed By: #### F T4, TSH, FT3 #### [address] [address] Monocytes/100 WBC (Bld) 7.2 % Normal 2.0-13.0 [facility] Comment on above: Performed By: #### F T4, TSH, FT3 #### [address] [address] Neutrophils/100 WBC (Bld) 54.0 % Normal 50.0-75.0 [facility] Comment on above: Performed By: #### F T4, TSH, FT3 #### [address] [address] .GFRon 06-25-2024 Estimated Glomerular Filtration Rate 47 ml/min/1.73sqm Normal [facility] Comment on above: Result Comment: Stages of Chronic Kidney Disease (CKD) Stage Description eGFR(ml/min/1.73 sq.m.) CKD 1 Normal kidney function or >=90 normal kindney function with possible kidney damage (ex. Proteinuria) CKD 2 Kidney damage with mild loss 60-89 of kidney function CKD 3a Mild to moderate loss of kidney 45-59 function CKD 3b Moderate to severe loss of 30-44 of kindey function CKD 4 Severe loss of kidney function 15-29 CKD 5 Kidney failure <15 Note: (go live 2024) the eGFR calculation was updated to the 2020 CKD-EPI creatinine equation without a race factor to calculate the eGFR results. Performed By: #### F T4, TSH, FT3 #### [address] [address] .NEUABSon 06-25-2024 Neutrophil, Absolute 3.5 10 3/mcL Normal 2.3-8.1 [facility] Comment on above: Performed By: #### F T4, TSH, FT3 #### [place] [address] [place], [place] [address] A1Con 06-25-2024 Glucose [Mass/Vol] 103 mg/dL Normal [facility] Comment on above: Result Comment: Bambi mated Average Glucose calculated by equation ((28.7xA1C)-46.7) Estimated average glucose (eAG) is a calculated value from Hemoglobin A1C and is traffic representative of the average blood glucose level in the last 2-3 month period. Normal range: less than 114 mg/dL Performed By: #### F T4, TSH, FT3 #### [address] [address] HbA1c (Bld) [Mass fraction] 5.2 % Normal 4.3-6.4 [facility] Comment on above: Performed By: #### F T4, TSH, FT3 #### [address] [address] CBCon 06-25-2024 Erythrocyte distribution width (RBC) [Ratio] 13.3 % Normal 11.5-15.5 [facility] Comment on above: Performed By: #### F T4, TSH, FT3 #### [place] [id number] Hematocrit (Bld) [Volume fraction] 39.5 % Normal 34.0-46.0 [facility] Comment on above: Performed By: #### F T4, TSH, FT3 #### [address] [address] Hgb 13.3 G/dL Normal 12.0-16.0 [facility] Comment on above: Performed By: #### F T4, TSH, FT3 #### [address] [address] MCH (RBC) [Entitic mass] 32.2 pg Normal 27.0-33.0 [facility] Comment on above: Performed By: #### F T4, TSH, FT3 #### [address] [address] MCHC 33.7 G/dL Normal 32.0-36.0 [facility] Comment on above: Performed By: #### F T4, TSH, FT3 #### [address] [address] MCV (RBC) [Entitic vol] 95.6 fL Normal 80.0-99.0 [facility] Comment on above: Performed By: #### F T4, TSH, FT3 #### [address] [address] Platelet 262 10 3/mcL Normal 150-450 [facility] Comment on above: Performed By: #### F T4, TSH, FT3 #### [address] [address] Platelet mean volume (Bld) [Entitic vol] 7.9 fL Normal 6.6-10.5 [facility] Comment on above: Performed By: #### F T4, TSH, FT3 #### [address] [address] RBC 4.13 10 6/mcL Normal 4.10-5.30 [facility] Comment on above: Performed By: #### F T4, TSH, FT3 #### [address] [address] WBC 6.5 10 3/mcL Normal 4.5-10.8 [facility] Comment on above: Performed By: #### F T4, TSH, FT3 #### [address] [address] CMPon 06-25-2024 Albumin Level 3.9 G/dL Normal 3.4-4.8 [facility] Comment on above: Performed By: #### F T4, TSH, FT3 #### [address] [address] Albumin/Globulin [Mass ratio] 1.4 {ratio} Normal 1.1-2.5 [facility] Comment on above: Performed By: #### F T4, TSH, FT3 #### [address] [address] ALP [Catalytic activity/Vol] 48 U/L Normal 40-135 [facility] Comment on above: Performed By: #### F T4, TSH, FT3 #### [address] [address] ALT [Catalytic activity/Vol] 27 U/L Normal 14-59 [facility] Comment on above: Performed By: #### F T4, TSH, FT3 #### [address] [address] AST [Catalytic activity/Vol] 19 U/L Normal 10-40 [facility] Comment on above: Performed By: #### F T4, TSH, FT3 #### [address] [address] Bili Total 0.4 mg/dL Normal 0.2-1.0 [facility] Comment on above: Result Comment: Use of this assay is not recommended for patients undergoing treatment with eltrombopag due to the potential for falsely elevated results. Performed By: #### F T4, TSH, FT3 #### [address] [address] BUN/Creatinine Ratio 27 ratio Normal 7-27 [facility] Comment on above: Performed By: #### F T4, TSH, FT3 #### [address] [address] Calcium [Mass/Vol] 9.1 mg/dL Normal 8.4-10.2 [facility] Comment on above: Performed By: #### F T4, TSH, FT3 #### [address] [address] Chloride [Moles/Vol] 101 mmol/L Normal 98-107 [facility] Comment on above: Performed By: #### F T4, TSH, FT3 #### [address] [address] CO2 [Moles/Vol] 31 mmol/L Normal 23-31 [facility] Comment on above: Performed By: #### F T4, TSH, FT3 #### [address] [address] Creatinine [Mass/Vol] 1.29 mg/dL High 0.55-1.02 [facility] Comment on above: Result Comment: Test ing performed on Siemens Dimension EXL analyzer using a modified kinetic Stevie technique. Performed By: #### F T4, TSH, FT3 #### [address] [address] Electrolyte Balance 4.0 mEq/L Normal 4.0-15.0 [facility] Comment on above: Performed By: #### F T4, TSH, FT3 #### [address] [address] Globulin 2.8 G/dL Normal 1.5-3.8 [facility] Comment on above: Performed By: #### F T4, TSH, FT3 #### [address] [address] Glucose [Mass/Vol] 91 mg/dL Normal 80-115 [facility] Comment on above: Performed By: #### F T4, TSH, FT3 #### [address] [address] Potassium [Moles/Vol] 4.0 mmol/L Normal 3.5-5.1 [facility] Comment on above: Performed By: #### F T4, TSH, FT3 #### [address] [address] Sodium [Moles/Vol] 136 mmol/L Normal 136-145 [facility] Comment on above: Performed By: #### F T4, TSH, FT3 #### [address] [address] Total Protein 6.7 G/dL Normal 6.4-8.2 [facility] Comment on above: Performed By: #### F T4, TSH, FT3 #### [address] [address] Urea nitrogen [Mass/Vol] 35 mg/dL High 7-18 [facility] Comment on above: Performed By: #### F T4, TSH, FT3 #### [address] [address] CRPon 06-25-2024 C-Reactive Protein 0.1 mg/dL Normal 0.0-0.3 [facility] Comment on above: Performed By: #### F T4, TSH, FT3 #### [address] [address] ESRon 06-25-2024 Erythrocyte Sed Rate <1 Normal 0-30 [facility] Comment on above: Performed By: #### F T4, TSH, FT3 #### [address] [address] FT3on 06-25-2024 Free T3 [Mass/Vol] 2.02 pg/mL Low 2.30-4.00 [facility] Comment on above: Performed By: #### F T4, TSH, FT3 #### [place] [address] FT4on 06-25-2024 Free T4 [Mass/Vol] 0.65 ng/dL Low 0.76-1.46 [facility] Comment on above: Performed By: #### F T4, TSH, FT3 #### [place] [address] TSHon 06-25-2024 TSH Qn 3.05 m[IU]/L Normal 0.36-3.74 [facility] Comment on above: Performed By: #### F T4, TSH, FT3 #### [place] [address] Absolute lymphocyte countOrd ered By: Darrell Barney on 05-28-2024 Lymphocytes Auto (Unsp spec) [#/Vol] 2.06 10*3/uL 0.83-4.51 [facility] Absolute neutrophil countOrd ered By: Darrell Barney on 05-28-2024 Neutrophils (Bld) [#/Vol] 2.7 10*3/uL 2.0-7.7 [facility] Anion gap in Serum or Plasma Ordered By: Darrell Barney on 05-28-2024 Anion gap [Moles/Vol] 11 mmol/L 5-15 [facility] Automated lymphocyte count a s percentage of total leukocytesOrdered By: Darrell Barney on 05-28-2024 Lymphocytes/100 WBC Auto (Unsp spec) 37.3 % 19-41 [facility] BUN/creatinine ratioOrdered By: Darrell Barney on 05-28-2024 Urea nitrogen/Creatinine [Mass ratio] 22.7 mg/mg High 10-20 [facility] Basophil percentageOrdered B y: Darrell Barney on 05-28-2024 Basophils/100 WBC (Bld) 1.1 % High 0-1 [facility] Bilirubin, totalOrdered By: Darrell Barney on 05-28-2024 Bilirubin [Mass/Vol] 0.31 mg/dL 0.00-1.30 [facility] CBC W/Diff, Automatedon 05-17 Absolute Lymph 2.06 X10 3/uL Normal 0.83-4.51 [facility] Comment on above: Performed By: #### L 100.0100, L500.4050, L504.2610 ####[facility] [address] [place], [address] Absolute Neut 2.7 X10 3/uL Normal 2.0-7.7 [facility] Comment on above: Performed By: #### L 100.0100, L500.4050, L504.2610 ####[facility] [address] [place], [address] Basophils/100 WBC (Bld) 1.1 % High 0-1 [facility] Comment on above: Performed By: #### L 100.0100, L500.4050, L504.2610 ####[facility] [address] [place], [address] Eosinophils/100 WBC (Bld) 4.5 % Normal 0-5 [facility] Comment on above: Performed By: #### L 100.0100, L500.4050, L504.2610 ####[facility] [address] [place], [address] Erythrocyte distribution width (RBC) [Ratio] 13.2 % Normal 11.6-14.6 [facility] Comment on above: Performed By: #### L 100.0100, L500.4050, L504.2610 ####[facility] [address] [place], [address] Hematocrit (Bld) [Volume fraction] 36.8 % Low 37-47 [facility] Comment on above: Performed By: #### L 100.0100, L500.4050, L504.2610 ####[facility] [address] [place], [address] Hemoglobin (Bld) [Mass/Vol] 12.3 g/dL Normal 12.0-15.0 [facility] Comment on above: Performed By: #### L 100.0100, L500.4050, L504.2610 ####[facility] [address] [place], [address] IG% 0.200 Normal 0.0-0.9 [facility] Comment on above: Result Comment: IG% - Immature Granulocytes (promyelocytes, myelocytes and metamyelocytes) > 1% indicates that a LEFT SHIFT is Present. Performed By: #### L 100.0100, L500.4050, L504.2610 ####[facility] [address] [place], [address] Lymphocytes/100 WBC (Bld) 37.3 % Normal 19-41 [facility] Comment on above: Performed By: #### L 100.0100, L500.4050, L504.2610 ####[facility] [address] [place], [address] MCH (RBC) [Entitic mass] 31.9 pg Normal 27.0-32.0 [facility] Comment on above: Performed By: #### L 100.0100, L500.4050, L504.2610 ####[facility] [address] [place], [address] MCHC (RBC) [Mass/Vol] 33.4 g/dL Normal 32-36 [facility] Comment on above: Performed By: #### L 100.0100, L500.4050, L504.2610 ####[facility] [address] [place], [address] MCV (RBC) [Entitic vol] 95.3 fL Normal 81-99 [facility] Comment on above: Performed By: #### L 100.0100, L500.4050, L504.2610 ####[facility] [address] [place], [address] Monocytes/100 WBC (Bld) 8.7 % Normal 0-10 [facility] Comment on above: Performed By: #### L 100.0100, L500.4050, L504.2610 ####[facility] [address] [place], [address] Neutrophils/100 WBC (Bld) 48.2 % Normal 47-70 [facility] Comment on above: Performed By: #### L 100.0100, L500.4050, L504.2610 ####[facility] [address] [place], [address] Nucleated RBC (Bld) [#/Vol] 0 10*3/uL Normal 0-5 [facility] Comment on above: Performed By: #### L 100.0100, L500.4050, L504.2610 ####[facility] [address] [place], [address] Platelet mean volume (Bld) [Entitic vol] 9.6 fL Normal 6.2-12.0 [facility] Comment on above: Performed By: #### L 100.0100, L500.4050, L504.2610 ####[facility] [address] [place], [address] Platelets (Bld) [#/Vol] 223 10*3/uL Normal 150-450 [facility] Comment on above: Performed By: #### L 100.0100, L500.4050, L504.2610 ####[facility] [address] [place], [address] RBC (Bld) [#/Vol] 3.86 10*6/uL Low 4.2-5.4 [facility] Comment on above: Performed By: #### L 100.0100, L500.4050, L504.2610 ####[facility] [address] [place], [address] RDW SD 45.8 fl High 35.1-43.9 [facility] Comment on above: Performed By: #### L 100.0100, L500.4050, L504.2610 ####[facility] [address] [place], [address] WBC (Bld) [#/Vol] 5.5 10*3/uL Normal 4.4-11.0 [facility] Comment on above: Performed By: #### L 100.0100, L500.4050, L504.2610 ####[facility] [address] [place], [address] Carbon dioxide, total [Moles /volume] in Central venous bloodOrdered By: Darerll Barney on 05-28-2024 CO2 [Moles/Vol] 24.4 mmol/L 21.0-32.0 [facility] Chloride assayOrdered By: Priscila Barney on 05-28-2024 Chloride [Moles/Vol] 103 mmol/L 98-108 [facility] Comprehensive Metabolic Prof ilon 05-28-2024 Albumin [Mass/Vol] 4.2 g/dL Normal 3.4-4.8 [facility] Comment on above: Performed By: #### L 100.0100, L500.4050, L504.2610 ####[facility] [address] [place], [address] Albumin/Globulin [Mass ratio] 2.0 {ratio} Normal 0.9-2.4 [facility] Comment on above: Performed By: #### L 100.0100, L500.4050, L504.2610 ####[facility] [address] [place], [address] ALK PHOS 40 U/L Normal 35-104 [facility] Comment on above: Performed By: #### L 100.0100, L500.4050, L504.2610 ####[facility] [address] [place], [address] ALT [Catalytic activity/Vol] 17 U/L Normal <=34 [facility] Comment on above: Performed By: #### L 100.0100, L500.4050, L504.2610 ####[facility] [address] [place], [address] AST [Catalytic activity/Vol] 26 U/L Normal <=31 [facility] Comment on above: Performed By: #### L 100.0100, L500.4050, L504.2610 ####[facility] [address] [place], [address] Bilirubin [Mass/Vol] 0.31 mg/dL Normal 0.00-1.30 [facility] Comment on above: Performed By: #### L 100.0100, L500.4050, L504.2610 ####[facility] [address] [place], [address] BUN/CRE 22.7 RATIO High 10-20 [facility] Comment on above: Performed By: #### L 100.0100, L500.4050, L504.2610 ####[facility] [address] [place], [address] Calcium [Mass/Vol] 9.3 mg/dL Normal 7.6-11.0 [facility] Comment on above: Performed By: #### L 100.0100, L500.4050, L504.2610 ####[facility] [address] [place], [address] Chloride [Moles/Vol] 103 mmol/L Normal 98-108 [facility] Comment on above: Performed By: #### L 100.0100, L500.4050, L504.2610 ####[facility] [address] [place], [address] CO2 [Moles/Vol] 24.4 mmol/L Normal 21.0-32.0 [facility] Comment on above: Performed By: #### L 100.0100, L500.4050, L504.2610 ####[facility] [address] [place], [address] Creatinine [Mass/Vol] 1.21 mg/dL High 0.70-1.20 [facility] Comment on above: Performed By: #### L 100.0100, L500.4050, L504.2610 ####[facility] [address] [place], [address] ECRCL 45.71 ml/min Low 50-250 [facility] Comment on above: Performed By: #### L 100.0100, L500.4050, L504.2610 ####[facility] [address] [place], [address] GAP 11 Normal 5-15 [facility] Comment on above: Performed By: #### L 100.0100, L500.4050, L504.2610 ####[facility] [address] [place], [address] GFR/1.73 sq M.predicted among non-blacks MDRD (S/P/Bld) [Vol rate/Area] 51 mL/min/{1.73_m2} Low >60 [facility] Comment on above: Result Comment: mL/m in/1.73m2 CKD-EPI Creatinine Equation (2020) Performed By: #### L 100.0100, L500.4050, L504.2610 ####[facility] [address] [place], [address] Globulin (S) [Mass/Vol] 2.1 g/dL Low 2.2-4.2 [facility] Comment on above: Performed By: #### L 100.0100, L500.4050, L504.2610 ####[facility] [address] [place], [address] Glucose [Mass/Vol] 92 mg/dL Normal 70-99 [facility] Comment on above: Performed By: #### L 100.0100, L500.4050, L504.2610 ####[facility] [address] [place], [address] Potassium [Moles/Vol] 3.8 mmol/L Normal 3.3-5.1 [facility] Comment on above: Performed By: #### L 100.0100, L500.4050, L504.2610 ####[facility] [address] [place], [address] Sodium [Moles/Vol] 137 mmol/L Normal 133-145 [facility] Comment on above: Performed By: #### L 100.0100, L500.4050, L504.2610 ####[facility] [address] [place], [address] T PROT 6.3 g/dL Normal 5.9-8.4 [facility] Comment on above: Performed By: #### L 100.0100, L500.4050, L504.2610 ####[facility] [address] [place], [address] Urea nitrogen [Mass/Vol] 28 mg/dL High 4-19 [facility] Comment on above: Performed By: #### L 100.0100, L500.4050, L504.2610 ####[facility] [address] [place], [address] Eosinophil percentageOrdered By: Darrell Barney on 05-28-2024 Eosinophils/100 WBC (Bld) 4.5 % 0-5 [facility] Erythrocyte distribution wid th ratioOrdered By: Darrell Barney on 05-28-2024 Erythrocyte distribution width (RBC) [Ratio] 13.2 % 11.6-14.6 [facility] Erythrocyte distribution wid th standard deviationOrdered By: Darrell Barney on 05-28-2024 Erythrocyte distribution width (RBC) [Ratio] 45.8 fl High 35.1-43.9 [facility] Glomerular filtration rate ( GFR) estimation/1.73 sq m using serum, plasma, or whole bOrdered By: Darrell Barney on 05-28-2024 GFR/1.73 sq M.predicted among non-blacks MDRD (S/P/Bld) [Vol rate/Area] 51 mL/min/{1.73_m2} Low >60 [facility] Comment on above: mL/min/1.73m2 CKD-EP I Creatinine Equation (2020) Hematocrit Auto (Bld) [Volum e fraction]Ordered By: Darrell Barney on 05-28-2024 Hematocrit (Bld) [Volume fraction] 36.8 % Low 37-47 [facility] Hemoglobin measurementOrdere d By: Darrell Barney on 05-28-2024 Hemoglobin (Bld) [Mass/Vol] 12.3 g/dL 12.0-15.0 [facility] Immature granulocytes/100 WB C Auto (Bld)Ordered By: Darrell Barney on 05-28-2024 Immature granulocytes/100 WBC (Bld) 0.200 % 0.0-0.9 [facility] Comment on above: IG% - Immature Granu locytes (promyelocytes, myelocytes and metamyelocytes) > 1% indicates that a LEFT SHIFT is Present. LDHon 05-28-2024 LDH 155 U/L Normal 84-246 [facility] Comment on above: Order Comment: 1 Performed By: #### L 100.0100, L500.4050, L504.2610 ####[facility] [address] [place], [address] Laboratory - Chemistry and C hemistry - challengeOrdered By: Darrell Barney on 05-28-2024 AST [Catalytic activity/Vol] 26 U/L <32 [facility] Lactate dehydrogenase (LDH) measurementOrdered By: Darrell Barney on 05-28-2024 LDH [Catalytic activity/Vol] 155 U/L 84-246 [facility] MCV (mean corpuscular volume ) determinationOrdered By: Darrell Barney on 05-28-2024 MCV (RBC) [Entitic vol] 95.3 fL 81-99 [facility] Mean corpuscular hemoglobin (MCH) determinationOrdered By: Darrell [facility] on 05-28-2024 MCH (RBC) [Entitic mass] 31.9 pg 27.0-32.0 [facility] Mean corpuscular hemoglobin concentration (MCHC) determinationOrdered By: Darrell Barney on 05-28-2024 MCHC (RBC) [Mass/Vol] 33.4 g/dL 32-36 [facility] Mean platelet volume determi nationOrdered By: Darrell Barney on 05-28-2024 Platelet mean volume (Bld) [Entitic vol] 9.6 fL 6.2-12.0 [facility] Monocyte percentageOrdered B y: Darrell Barney on 05-28-2024 Monocytes/100 WBC (Bld) 8.7 % 0-10 [facility] Neutrophil percentageOrdered By: Darrell Barney on 05-28-2024 Neutrophils/100 WBC (Bld) 48.2 % 47-70 [facility] Nucleated red blood cell per centageOrdered By: [facility] on 05-28-2024 Nucleated RBC/100 WBC (Bld) [Ratio] 0 % 0-5 [facility] Oncology Visit Reporton 05-17 Oncology Visit Report [facility] [place] [facility] [address] [place] [address] OFFICE VISIT Date of Service: 05/28/24 1551 MR#: [id number] Acct: [id number] Name: ЮЛИЯ SEQUEIRA Rep #: [id number] : 1960 From: Darrell Barney MD Age/Sex: 63/F Location[place] [facility] Status: Signed HPI Subjective Date of Service 05/28/24 Chief Complaint F/U for Leukopenia/Neutropeni a. History of Present Illness 63y.o.woman was found to have Leukopenia and neutropenia, referred for further evaluation. She feels well, had Thyroid cancer in 2003, had thyroidectomy follow, had uterine ablation 20yrs ago. WBC was normal. She is on observation. Had blood work and comes for follow up. Feels tired. [facility] Medical History Vitamin D deficiency Thyroid cancer CKD (chronic kidney disease), stage III Neutropenia Leukopenia Renal disease Hypothyroidism Surgical History History of tubal ligation History of thyroid surgery Family History Father Cancer stomach Mother Heart disease Kidney disease Social History Smoking Status: Never smoker alcohol intake: never substance use type: does not use Intake Vital Signs 11/28/23 16:19 05/28/24 15:52 05/28/24 16:02 Height 5 ft 6 in 5 ft 6 in 5 ft 6 in Weight: 64.495 kg 63.588 kg BMI 22.9 22.6 BP 114/66 127/82 H Blood Pressure Location Lt brachial Lt brachial Position Sitting Sitting Respiration 18 16 Pulse 65 64 Pulse Source Monitor Monitor Temp 98.4 F 98.0 F Temperature Source Temporal Artery Temporal Artery Pulse Oximetry (%) 100 98 Oxygen Delivery Method room air room air Intake Is patient in pain?: No Allergies No Known Allergies Allergy (Verified 05/28/24 16:00) Medications ???Medication ???Instructions ???Recorded ???Confirmed ???Type estradiol 1 mg tablet mg PO 05/11/23 05/28/24 History progesterone micronized 100 mg 100 mg PO DAILY 05/11/23 05/28/24 History capsule citalopram 20 mg tablet 20 mg PO DAILY 11/14/23 05/28/24 H istory amino acids ea PO 11/21/23 05/28/24 History chorionic gonadotropin, human 2 unit IM 11/21/23 05/28/24 Histor y 10,000 unit IM powder for solution levothyroxine 75 mcg tablet 75 mcg PO QDAY 11/21/23 05/28/24 H istory (Levoxyl) liothyronine 5 mcg tablet 10 mcg PO DAILY 11/21/23 05/28/24 History magnesium 250 mg tablet 500 mg PO QDAY 11/21/23 05/28/24 H istory Have you fallen in the past year?: No Central Venous Access Central Venous Access: No Laboratory Tests 11/21/23 05/28/24 14:30 14:58 WBC 5.8 5.5 Hgb 12.5 12.3 Hct 37.2 36.8 L Plt Count 212 223 Absolute Neuts (auto) 3.4 2.7 Absolute Lymphs (auto) 1.70 Exam Physical Exam Const alert, oriented x3 and no apparent distress Coding Level of Care Code Off vis,est,level 3 Exam Problem Focused Diagnoses Neutropenia, unspecified type D70.9 Leukopenia type: neutropenia Neutropenia type: unspecified Assessment and Plan Assessment and Plan (1) Leukopenia: Status: Resolved Qualifiers: Leukopenia type: neutropenia Neutropenia type: unspecified Qualified Code(s): D70.9 - Neutropenia, unspecified Comment: Discussed Leukopenia, her counts are normal now. Plan: To continue observation. F/U with PCP and referred if new problems arise. Clinical Quality Measures Falls Risk Screening/Assistive Devices Have you fallen in the past year?: No 05/28/24 1620 Date Darrell Man Signature: Date (if applicable) CC: [employer] Daja Dozier Normal [facility] Platelet countOrdered By: Priscila Barney on 05-28-2024 Platelets (Bld) [#/Vol] 223 10*3/uL 150-450 [facility] Potassium measurement (mass/ volume)Ordered By: Darrell Barney on 05-28-2024 Potassium (Unsp spec) [Mass/Vol] 3.8 mmol/L 3.3-5.1 [facility] RBC Auto (Bld) [#/Vol]Ordere d By: Darrell Barney on 05-28-2024 RBC (Bld) [#/Vol] 3.86 10*6/uL Low 4.2-5.4 [facility] Serum creatinine measurement (mass/volume)Ordered By: Darrell Barney on 05-28-2024 Creatinine [Mass/Vol] 1.21 mg/dL High 0.70-1.20 [facility] Serum globulin measurementOr dered By: Darrell Barney on 05-28-2024 Globulin (S) [Mass/Vol] 2.1 g/dL Low 2.2-4.2 [facility] Serum glucose measurement (m ass/volume)Ordered By: Darrell Barney on 05-28-2024 Glucose [Mass/Vol] 92 mg/dL 70-99 [facility] Serum or plasma alanine cohn otransferase (ALT) measurementOrdered By: Darrell Barney on 05-28-2024 ALT [Catalytic activity/Vol] 17 U/L <35 [facility] Serum or plasma albumin cassandra urement (mass/volume)Ordered By: Darrell Barney on 05-28-2024 Albumin [Mass/Vol] 4.2 g/dL 3.4-4.8 [facility] Serum or plasma albumin/glob ulin mass ratioOrdered By: Darrell Barney on 05-28-2024 Albumin/Globulin [Mass ratio] 2.0 {ratio} 0.9-2.4 [facility] Serum or plasma alkaline morgan sphatase measurementOrdered By: Darrell Barney on 05-28-2024 ALP [Catalytic activity/Vol] 40 U/L 35-104 [facility] Serum or plasma calcium cassandra urement (mass/volume)Ordered By: Darrell Barney on 05-28-2024 Calcium [Mass/Vol] 9.3 mg/dL 7.6-11.0 [facility] Serum or plasma urea nitroge n measurement (mass/volume)Ordered By: Darrell Barney on 03-12-2025 Urea nitrogen [Mass/Vol] 28 mg/dL High 4-19 [facility] Sodium levelOrdered By: Vince valdo Barney on 05-28-2024 Sodium [Moles/Vol] 137 mmol/L 133-145 [facility] Total proteinOrdered By: Miles messina Ector on 05-28-2024 Protein [Mass/Vol] 6.3 g/dL 5.9-8.4 [facility] White blood cell (WBC) count Ordered By: Darrell Ector on 05-28-2024 WBC (Bld) [#/Vol] 5.5 10*3/uL 4.4-11.0 [facility] FT3on 05-05-2024 Free T3 [Mass/Vol] 3.15 pg/mL Normal 2.30-4.00 [facility] Comment on above: Performed By: #### F T4, TSH, FT3 #### [place] [id number] FT4on 05-05-2024 Free T4 [Mass/Vol] 1.14 ng/dL Normal 0.76-1.46 [facility] Comment on above: Performed By: #### F T4, TSH, FT3 #### [place] [address] LABORATORYOrdered By: SYSTEM SYSTEM on 05-05-2024 Free T3 [Mass/Vol] 3.15 pg/mL Normal 2.30 - 4. 00 pg/mL AO ADM SS Free T4 [Mass/Vol] 1.14 ng/dL Normal 0.76 - 1. 46 ng/dL AO ADM SS TSH Qn 0.10 m[IU]/L Low 0.36 - 3.74 mcIU/mL AO ADM SS TSHon 05-05-2024 TSH Qn 0.10 m[IU]/L Low 0.36-3.74 [facility] Comment on above: Performed By: #### F T4, TSH, FT3 #### [place] [id number] FT4on 04-01-2024 Free T4 [Mass/Vol] 1.09 ng/dL Normal 0.76-1.46 [facility] Comment on above: Performed By: #### F T4, TSH, FT3 #### [facility] [address] [place], [place] [address] LABORATORYOrdered By: SYSTEM SYSTEM on 04-01-2024 Free T4 [Mass/Vol] 1.09 ng/dL Normal 0.76 - 1. 46 ng/dL AO ADM SS TSH Qn 0.33 m[IU]/L Low 0.36 - 3.74 mcIU/mL AO ADM SS TSHon 04-01-2024 TSH Qn 0.33 m[IU]/L Low 0.36-3.74 [facility] Comment on above: Performed By: #### F T4, TSH, FT3 #### [place] [address] [place], [place] [address] [facility] 02-18-2024 [facility] ЮЛИЯ SEQUEIRA ([id number]) 1960 Date Time Provider Department 02/18/24 AILEEN SIDDIQUI During your visit today, we recorded the following information about you: Hermila Chaves RN 02/18/2024 10:57 AM Signed Patient called. States that since she's been off the Citalopram she's been more irritable. Believes the medication was helping her more than she thought. She has 10 tablets of the 10 MG dose left. She would like to ease back in again. Would need a new RX for the 20 MG. A short term supply sent to [facility] and half-way supply sent to [facility]. ALIS Mccall Renee, APRN.[facility] 02/18/2024 11:09 AM Signed Patient is to start the Celexa 10 mg daily when she has completed those 10 tablets she can increase to the 20 mg tablets. I sent 30 tablets into [facility] in [place] and 90-day supplies to her mail order. Aileen Siddiqui APRN.Dimple Hall RN 02/18/2024 12:07 PM Signed Patient notified. She actually needed the [facility] in [place] for the 30 day supply. Leave the 90 day one at [facility] as prescribed. Please file again. ALIS Ryan Renee, APRN.CNP 02/18/2024 1:24 PM Signed Order sent. Aileen Siddiqui APRN.CNP Allergies As of Date: 02/18/2024 (No Known Allergies) Date Reviewed: 12/13/2023 Reviewed by: Allie Pelaez MA - Fully Assessed Reason for Visit: Medication Problem [65] Order(s):citalopram (CELEXA) 20 mg tabletTake 1 tablet by mouth once daily.Disp: 90 tabletRfl: 3 citalopram (CELEXA) 20 mg tabletTake 1 tablet by mouth once daily.Disp: 30 tabletRfl: 0 Prescriptions as of 02/18/2024 - citalopram (CELEXA) 20 mg tablet Take 1 tablet by mouth once daily. - citalopram (CELEXA) 20 mg tablet Take 1 tablet by mouth once daily. - estradiol (ESTRACE) 1 mg tablet Take 1 tablet by mouth once daily. - progesterone micronized (PROMETRIUM) 100 mg capsule Take 1 capsule by mouth once daily. - MAGNESIUM ORAL Take by mouth. - citalopram hydrobromide (CELEXA) 10 mg tablet Take 1 tablet by mouth once daily. - testosterone in cream base (CPD) Apply 1 g to affected area once daily. Comments for compounding pharmacy: Testosterone cream 25MG/2.5Gm - levothyroxine (SYNTHROID) 100 mcg tablet Changed to 75 mcg daily June 2022 - liothyronine (CYTOMEL) 5 mcg tablet Take 1 tablet by mouth once daily. Problem List As Of Date 02/18/2024 Noted Resolved MALIGN NEOPL THYROID [C73] Postablative hypothyroidism [E89.0] 07/06/2016 Thyroid cancer (HCC) [C73] 07/06/2016 Depression [F32.A] 07/06/2016 Headache disorder [R51.9] 07/06/2016 09/29/2022 Post-menopause on HRT (hormone replacement ther*07/06/2016 Vitamin D deficiency [E55.9] 07/06/2016 09/29/2022 Encounter for screening for malignant neoplasm *03/22/2018 09/29/2022 meopause hx of ablation [N95.1] Elevated serum creatinine [R79.89] 09/29/2022 Hormone replacement therapy (HRT) [Z79.890] Stage 3 chronic kidney disease (HCC) [N18.30] 09/29/2022 Diagnosed: 09/29/2022 Prescriptions ordered this encounter Disp Refills Start End CITALOPRAM 20 MG TABLET 30 t* 0 02/18/2024 02/18/2024 Route: ORAL Sig: Take 1 tablet by mouth once daily. CITALOPRAM 20 MG TABLET 90 t* 3 02/18/2024 02/17/2025 Route: ORAL Sig: Take 1 tablet by mouth once daily. CITALOPRAM 20 MG TABLET 30 t* 0 02/18/2024 Route: ORAL Sig: Take 1 tablet by mouth once daily. Medications Discontinued During This Encounter Prescriptions - citalopram (CELEXA) 20 mg tablet (Discontinued) Take 1 tablet by mouth once daily. Encounter Status:Closed by DIMPLE ARIAS on 02/18/24 Normal [facility] .Auto Diffon 02-08-2024 Basophil, Absolute 0.1 10 3/mcL Normal 0.0-0.2 [facility] Comment on above: Performed By: #### F T3, TSH, ANEU, CBC, ADIFF, CMP, VIDH, FT4, GFR #### [address] [address] Basophils/100 WBC (Bld) 1.4 % Normal 0.0-2.5 [facility] Comment on above: Performed By: #### F T3, TSH, ANEU, CBC, ADIFF, CMP, VIDH, FT4, GFR #### [address] [address] Eosinophil, Absolute 0.1 10 3/mcL Normal 0.0-0.7 [facility] Comment on above: Performed By: #### F T3, TSH, ANEU, CBC, ADIFF, CMP, VIDH, FT4, GFR #### [address] [address] Eosinophils/100 WBC (Bld) 3.3 % Normal 0.0-7.0 [facility] Comment on above: Performed By: #### F T3, TSH, ANEU, CBC, ADIFF, CMP, VIDH, FT4, GFR #### [address] [address] Lymphocyte, Absolute 1.9 10 3/mcL Normal 0.9-4.3 [facility] Comment on above: Performed By: #### F T3, TSH, ANEU, CBC, ADIFF, CMP, VIDH, FT4, GFR #### [address] [address] Lymphocytes/100 WBC (Bld) 43.8 % High 20.0-40.0 [facility] Comment on above: Performed By: #### F T3, TSH, ANEU, CBC, ADIFF, CMP, VIDH, FT4, GFR #### [address] [address] Monocyte, Absolute 0.4 10 3/mcL Normal 0.1-1.4 [facility] Comment on above: Performed By: #### F T3, TSH, ANEU, CBC, ADIFF, CMP, VIDH, FT4, GFR #### [address] [address] Monocytes/100 WBC (Bld) 8.0 % Normal 2.0-13.0 [facility] Comment on above: Performed By: #### F T3, TSH, ANEU, CBC, ADIFF, CMP, VIDH, FT4, GFR #### [address] [address] Neutrophils/100 WBC (Bld) 43.5 % Low 50.0-75.0 [facility] Comment on above: Performed By: #### F T3, TSH, ANEU, CBC, ADIFF, CMP, VIDH, FT4, GFR #### [address] [address] .GFRon 02-08-2024 GFR 59 ml/min/1.73sqm Normal [facility] Comment on above: Result Comment: GFR Population mean for , Non- Americans Ages 20-29 = 116 mL/min/1.73 sq.m. Ages 30-39 = 107 mL/min/1.73 sq.m. Ages 40-49 = 99 mL/min/1.73 sq.m. Ages 50-59 = 93 mL/min/1.73 sq.m. Ages 60-69 = 85 mL/min/1.73 sq.m. Ages 70+ = 75 mL/min/1.73 sq.m. Chronic Kidney Disease: Less than 60 mL/min/1.73 square meters End Stage Renal Disease: Less than 15 mL/min/1.73 square meters Performed By: #### F T4, TSH, FT3 #### [address] [address] GFR Non- 48 ml/min/1.73sqm Normal [facility] Comment on above: Result Comment: GFR Population mean for , Non- Americans Ages 20-29 = 116 mL/min/1.73 sq.m. Ages 30-39 = 107 mL/min/1.73 sq.m. Ages 40-49 = 99 mL/min/1.73 sq.m. Ages 50-59 = 93 mL/min/1.73 sq.m. Ages 60-69 = 85 mL/min/1.73 sq.m. Ages 70+ = 75 mL/min/1.73 sq.m. Chronic Kidney Disease: Less than 60 mL/min/1.73 square meters End Stage Renal Disease: Less than 15 mL/min/1.73 square meters Performed By: #### F T4, TSH, FT3 #### [address] [address] .NEUABSon 02-08-2024 Neutrophil, Absolute 1.9 10 3/mcL Low 2.3-8.1 [facility] Comment on above: Performed By: #### F T3, TSH, ANEU, CBC, ADIFF, CMP, VIDH, FT4, GFR #### [address] [address] CBCon 02-08-2024 Erythrocyte distribution width (RBC) [Ratio] 13.5 % Normal 11.5-15.5 [facility] Comment on above: Performed By: #### F T3, TSH, ANEU, CBC, ADIFF, CMP, VIDH, FT4, GFR #### [place] [address] Hematocrit (Bld) [Volume fraction] 41.7 % Normal 34.0-46.0 [facility] Comment on above: Performed By: #### F T3, TSH, ANEU, CBC, ADIFF, CMP, VIDH, FT4, GFR #### [place] [address] Hgb 14.1 G/dL Normal 12.0-16.0 [facility] Comment on above: Performed By: #### F T3, TSH, ANEU, CBC, ADIFF, CMP, VIDH, FT4, GFR #### [place] [address] MCH (RBC) [Entitic mass] 33.0 pg Normal 27.0-33.0 [facility] Comment on above: Performed By: #### F T3, TSH, ANEU, CBC, ADIFF, CMP, VIDH, FT4, GFR #### [address] [address] MCHC 33.7 G/dL Normal 32.0-36.0 [facility] Comment on above: Performed By: #### F T3, TSH, ANEU, CBC, ADIFF, CMP, VIDH, FT4, GFR #### [place] [address] MCV (RBC) [Entitic vol] 97.9 fL Normal 80.0-99.0 [facility] Comment on above: Performed By: #### F T3, TSH, ANEU, CBC, ADIFF, CMP, VIDH, FT4, GFR #### [place] [address] Platelet 226 10 3/mcL Normal 150-450 [facility] Comment on above: Performed By: #### F T3, TSH, ANEU, CBC, ADIFF, CMP, VIDH, FT4, GFR #### [address] [address] Platelet mean volume (Bld) [Entitic vol] 8.2 fL Normal 6.6-10.5 [facility] Comment on above: Performed By: #### F T3, TSH, ANEU, CBC, ADIFF, CMP, VIDH, FT4, GFR #### [address] [address] RBC 4.26 10 6/mcL Normal 4.10-5.30 [facility] Comment on above: Performed By: #### F T3, TSH, ANEU, CBC, ADIFF, CMP, VIDH, FT4, GFR #### [place] [id number] WBC 4.4 10 3/mcL Low 4.5-10.8 [facility] Comment on above: Performed By: #### F T3, TSH, ANEU, CBC, ADIFF, CMP, VIDH, FT4, GFR #### [address] [address] CMPon 02-08-2024 Albumin Level 4.0 G/dL Normal 3.4-4.8 [facility] Comment on above: Performed By: #### F T4, TSH, FT3 #### [address] [address] Albumin/Globulin [Mass ratio] 1.7 {ratio} Normal 1.1-2.5 [facility] Comment on above: Performed By: #### F T4, TSH, FT3 #### [address] [address] ALP [Catalytic activity/Vol] 49 U/L Normal 40-135 [facility] Comment on above: Performed By: #### F T4, TSH, FT3 #### [address] [address] ALT [Catalytic activity/Vol] 24 U/L Normal 14-59 [facility] Comment on above: Performed By: #### F T4, TSH, FT3 #### [address] [address] AST [Catalytic activity/Vol] 17 U/L Normal 10-40 [facility] Comment on above: Performed By: #### F T4, TSH, FT3 #### [address] [address] Bili Total 0.4 mg/dL Normal 0.2-1.0 [facility] Comment on above: Result Comment: Use of this assay is not recommended for patients undergoing treatment with eltrombopag due to the potential for falsely elevated results. Performed By: #### F T4, TSH, FT3 #### [address] [address] BUN/Creatinine Ratio 24 ratio Normal 7-27 [facility] Comment on above: Performed By: #### F T4, TSH, FT3 #### [address] [address] Calcium [Mass/Vol] 9.1 mg/dL Normal 8.4-10.2 [facility] Comment on above: Performed By: #### F T4, TSH, FT3 #### [address] [address] Chloride [Moles/Vol] 101 mmol/L Normal 98-107 [facility] Comment on above: Performed By: #### F T4, TSH, FT3 #### [address] [address] CO2 [Moles/Vol] 29 mmol/L Normal 23-31 [facility] Comment on above: Performed By: #### F T4, TSH, FT3 #### [address] [address] Creatinine [Mass/Vol] 1.14 mg/dL High 0.55-1.02 [facility] Comment on above: Result Comment: Test ing performed on Siemens Dimension EXL analyzer using a modified kinetic Stevie technique. Performed By: #### F T4, TSH, FT3 #### [address] [address] Electrolyte Balance 10.0 mEq/L Normal 4.0-15.0 [facility] Comment on above: Performed By: #### F T4, TSH, FT3 #### [address] [address] Globulin 2.4 G/dL Normal [facility] Comment on above: Performed By: #### F T4, TSH, FT3 #### [address] [address] Glucose [Mass/Vol] 80 mg/dL Normal 80-115 [facility] Comment on above: Performed By: #### F T4, TSH, FT3 #### [address] [address] Potassium [Moles/Vol] 4.2 mmol/L Normal 3.5-5.1 [facility] Comment on above: Performed By: #### F T4, TSH, FT3 #### [address] [address] Sodium [Moles/Vol] 140 mmol/L Normal 136-145 [facility] Comment on above: Performed By: #### F T4, TSH, FT3 #### [address] [address] Total Protein 6.4 G/dL Normal 6.4-8.2 [facility] Comment on above: Performed By: #### F T4, TSH, FT3 #### [address] [address] Urea nitrogen [Mass/Vol] 27 mg/dL High 7-18 [facility] Comment on above: Performed By: #### F T4, TSH, FT3 #### [address] [address] FT3on 02-08-2024 Free T3 [Mass/Vol] 3.34 pg/mL Normal 2.30-4.00 [facility] Comment on above: Performed By: #### F T3, TSH, ANEU, CBC, ADIFF, CMP, VIDH, FT4, GFR #### [place] [address] [place], [place] [address] FT4on 02-08-2024 Free T4 [Mass/Vol] 0.86 ng/dL Normal 0.76-1.46 [facility] Comment on above: Performed By: #### F T3, TSH, ANEU, CBC, ADIFF, CMP, VIDH, FT4, GFR #### [place] [address] [place], [place] [address] LABORATORYOrdered By: SYSTEM SYSTEM on 02-08-2024 25-hydroxyvitamin D3 [Mass/Vol] 72.3 ng/mL Invalid Interpretation Code AO ADM SS Comment on above: Interpretive Data: I nterpretive Values Based on Total 25(OH) Vitamin D: Deficient <20 ng/mL Insufficient 20 - <30 ng/mL Sufficient 30-100 ng/mL Albumin BCP dye [Mass/Vol] 4.0 G/dL Normal 3.4 - 4.8 G/dL AO ADM SS Albumin/Globulin [Mass ratio] 1.7 {ratio} Normal 1.1 - 2.5 ratio AO ADM SS ALP [Catalytic activity/Vol] 49 U/L Normal 40 - 135 U/L AO ADM SS ALT With P-5'-P [Catalytic activity/Vol] 24 U/L Normal 14 - 59 U/L AO ADM SS AST With P-5'-P [Catalytic activity/Vol] 17 U/L Normal 10 - 40 U/L AO ADM SS Basophils (Bld) [#/Vol] 0.1 103/mcL Normal 0.0 - 0.2 10^3/mcL AO Workflow SS Basophils/100 WBC (Bld) 1.4 % Normal 0.0 - 2.5 % AO Workflow SS Bilirubin [Mass/Vol] 0.4 mg/dL Normal 0.2 - 1 .0 mg/dL AO ADM SS Comment on above: Interpretive Data: U se of this assay is not recommended for patients undergoing treatment with eltrombopag due to the potential for falsely elevated results. Calcium [Mass/Vol] 9.1 mg/dL Normal 8.4 - 10. 2 mg/dL AO ADM SS Chloride [Moles/Vol] 101 mmol/L Normal 98 - 10 7 mmol/L AO ADM SS CO2 [Moles/Vol] 29 mmol/L Normal 23 - 31 mmol/L AO ADM SS Creatinine [Mass/Vol] 1.14 mg/dL High 0.55 - 1.02 mg/dL AO ADM SS Comment on above: Interpretive Data: T esting performed on Siemens Dimension EXL analyzer using a modified kinetic Stevie technique. Electrolyte Balance 10.0 mEq/L Normal 4.0 - 15 .0 mEq/L AO ADM SS Eosinophil, Absolute 0.1 103/mcL Normal 0.0 - 0 .7 10^3/mcL AO Workflow SS Eosinophils/100 WBC (Bld) 3.3 % Normal 0.0 - 7.0 % AO Workflow SS Erythrocyte distribution width (RBC) [Ratio] 13.5 % Normal 11.5 - 15.5 % AO Workflow SS Free T3 [Mass/Vol] 3.34 pg/mL Normal 2.30 - 4. 00 pg/mL AO ADM SS Free T4 [Mass/Vol] 0.86 ng/dL Normal 0.76 - 1. 46 ng/dL AO ADM SS GFR/1.73 sq M.predicted among blacks MDRD (S/P/Bld) [Vol rate/Area] 59 ml/min/1.73sqm Invalid Interpretation Code AO Chemistry S Comment on above: Interpretive Data: GFR Population mean for , Non- Americans Ages 20-29 = 116 mL/min/1.73 sq.m. Ages 30-39 = 107 mL/min/1.73 sq.m. Ages 40-49 = 99 mL/min/1.73 sq.m. Ages 50-59 = 93 mL/min/1.73 sq.m. Ages 60-69 = 85 mL/min/1.73 sq.m. Ages 70+ = 75 mL/min/1.73 sq.m. Chronic Kidney Disease: Less than 60 mL/min/1.73 square meters End Stage Renal Disease: Less than 15 mL/min/1.73 square meters GFR/1.73 sq M.predicted among non-blacks MDRD (S/P/Bld) [Vol rate/Area] 48 ml/min/1.73sqm Invalid Interpretation Code AO Chemistry S Comment on above: Interpretive Data: GFR Population mean for , Non- Americans Ages 20-29 = 116 mL/min/1.73 sq.m. Ages 30-39 = 107 mL/min/1.73 sq.m. Ages 40-49 = 99 mL/min/1.73 sq.m. Ages 50-59 = 93 mL/min/1.73 sq.m. Ages 60-69 = 85 mL/min/1.73 sq.m. Ages 70+ = 75 mL/min/1.73 sq.m. Chronic Kidney Disease: Less than 60 mL/min/1.73 square meters End Stage Renal Disease: Less than 15 mL/min/1.73 square meters Globulin 2.4 G/dL Invalid Interpretation Code AO ADM SS Glucose [Mass/Vol] 80 mg/dL Normal 80 - 115 mg/dL AO ADM SS Hematocrit (Bld) [Volume fraction] 41.7 % Normal 34.0 - 46.0 % AO Workflow SS Hemoglobin (Bld) [Mass/Vol] 14.1 G/dL Normal 12.0 - 16.0 G/dL AO Workflow SS Lymphocytes (Bld) [#/Vol] 1.9 103/mcL Normal 0.9 - 4.3 10^3/mcL AO Workflow SS Lymphocytes/100 WBC (Bld) 43.8 % High 20.0 - 40.0 % AO Workflow SS MCH (RBC) [Entitic mass] 33.0 pg Normal 27.0 - 33.0 pg AO Workflow SS MCHC 33.7 G/dL Normal 32.0 - 36.0 G/dL AO Workflow SS MCV (RBC) [Entitic vol] 97.9 fL Normal 80.0 - 99.0 fL AO Workflow SS Monocytes (Bld) [#/Vol] 0.4 103/mcL Normal 0.1 - 1.4 10^3/mcL AO Workflow SS Monocytes/100 WBC (Bld) 8.0 % Normal 2.0 - 13.0 % AO Workflow SS Neutrophils (Bld) [#/Vol] 1.9 103/mcL Low 2.3 - 8.1 10^3/mcL AO Workflow SS Neutrophils/100 WBC (Bld) 43.5 % Low 50.0 - 75.0 % AO Workflow SS Platelet mean volume (Bld) [Entitic vol] 8.2 fL Normal 6.6 - 10.5 fL AO Workflow SS Platelets (Bld) [#/Vol] 226 103/mcL Normal 150 - 450 10^3/mcL AO Workflow SS Potassium [Moles/Vol] 4.2 mmol/L Normal 3.5 - 5.1 mmol/L AO ADM SS Protein [Mass/Vol] 6.4 G/dL Normal 6.4 - 8.2 G/dL AO ADM SS RBC (Bld) [#/Vol] 4.26 106/mcL Normal 4.10 - 5.3 0 10^6/mcL AO Workflow SS Sodium [Moles/Vol] 140 mmol/L Normal 136 - 145 mmol/L AO ADM SS TSH Qn 10.70 m[IU]/L High 0.36 - 3.74 mcIU/mL AO ADM SS Urea nitrogen [Mass/Vol] 27 mg/dL High 7 - 18 mg/dL AO ADM SS Urea nitrogen/Creatinine [Mass ratio] 24 ratio Normal 7 - 27 ratio AO ADM SS WBC (Bld) [#/Vol] 4.4 103/mcL Low 4.5 - 10.8 10^3/mcL AO Workflow SS TSHon 02-08-2024 TSH Qn 10.70 m[IU]/L High 0.36-3.74 [facility] Comment on above: Performed By: #### F T3, TSH, ANEU, CBC, ADIFF, CMP, VIDH, FT4, GFR #### [address] [address] VIDHon 02-08-2024 Vit. D 25-Hydroxy 72.3 ng/mL Normal [facility] Comment on above: Result Comment: Inte rpretive Values Based on Total 25(OH) Vitamin D: Deficient <20 ng/mL Insufficient 20 - <30 ng/mL Sufficient 30-100 ng/mL Performed By: #### F T4, TSH, FT3 #### [address] [address] CNPRahel 12-17-2023 EDUARDO Telephone (OBGY) ЮЛИЯ SEQUEIRA ([id number]) 1960 F Date Time Provider Department 12/17/23 AILEEN SIDDIQUI During your visit today, we recorded the following information about you: Jerrica Birmingham RN 12/17/2023 9:51 AM Signed Patient calling stating she took a COVID test on Sunday, 12/13 and it was positive. Patient was in the office on 12/12 for an annual exam. Patient asking if Aileen would be able to prescribe her anything for her symptoms. Questioned patient as to when symptoms start and she believes it was last Sunday, 12/09. On Sunday she started with sneezing and then coughing. Feels like symptoms were at there worst on Sunday. Today she just feel like her chest is very heavy. Instructed patient that since her symptoms started a week ago, treatment may not be indicated. ALIS Taylor Renee, APRN.CNP 12/17/2023 10:28 AM Signed It to far out for the onset of symptoms to order anything. It needs to be within the 1st 5 days from the onset of symptoms. Aileen Siddiqui APRN.Jerrica King RN 12/17/2023 10:53 AM Signed Left message to call office. ALIS Taylor Lindsey, RN 12/17/2023 11:11 AM Signed Patient notified and voiced understanding. Jerrica Birmingham RN Allergies As of Date: 12/17/2023 (No Known Allergies) Date Reviewed: 12/13/2023 Reviewed by: Allie Pelaez MA - Fully Assessed Reason for Visit: Covid Positive [4049] Prescriptions as of 12/17/2023 - MAGNESIUM ORAL Take by mouth. - estradiol (ESTRACE) 1 mg tablet Take 1 tablet by mouth once daily. - progesterone micronized (PROMETRIUM) 100 mg capsule Take 1 capsule by mouth once daily. - citalopram hydrobromide (CELEXA) 10 mg tablet Take 1 tablet by mouth once daily. - testosterone in cream base (CPD) Apply 1 g to affected area once daily. Comments for compounding pharmacy: Testosterone cream 25MG/2.5Gm - levothyroxine (SYNTHROID) 100 mcg tablet Changed to 75 mcg daily June 2022 - liothyronine (CYTOMEL) 5 mcg tablet Take 1 tablet by mouth once daily. Problem List As Of Date 12/17/2023 Noted Resolved MALIGN NEOPL THYROID [C73] Postablative hypothyroidism [E89.0] 07/06/2016 Thyroid cancer (HCC) [C73] 07/06/2016 Depression [F32.A] 07/06/2016 Headache disorder [R51.9] 07/06/2016 09/29/2022 Post-menopause on HRT (hormone replacement ther*07/06/2016 Vitamin D deficiency [E55.9] 07/06/2016 09/29/2022 Encounter for screening for malignant neoplasm *03/22/2018 09/29/2022 meopause hx of ablation [N95.1] Elevated serum creatinine [R79.89] 09/29/2022 Hormone replacement therapy (HRT) [Z79.890] Stage 3 chronic kidney disease (HCC) [N18.30] 09/29/2022 Diagnosed: 09/29/2022 Encounter Status:Closed by JERRICA BIRMINGHAM on 12/17/23 [facility] CNOVon 12-13-2023 CNOV Office Visit (OBGYWM ) ERMIASЮЛИЯ ([id number]) 1960 F Date Time Provider Department 12/13/23 4:00 PM AILEEN SIDDIQUI OBGYWM During your visit today, we recorded the following information about you: Blood pressure Weight Height 100/62 65.8 kg 1.692 m Aileen Siddiqui APRN.ASSISTANT PROFESSOR OF ANTHROPOLOGY 12/13/2023 4:48 PM Signed Routing Machine Operator offered: Patient declines. Юлия is a 63 year old who presents for an annual gynecologic exam with complaints, would like to wean off the celexa . Postmenopausal: Yes HRT use: Yes, estrogen, progesterone, AND testosterone How long: since 2014. Last Pap: 10/05/2022 normal HPV: 10/04/2022 positive History of abnormal pap: Yes Last mammogram: 2021 normal History of abnormal mammogram: Yes Sexually active: Yes Pain with intercourse: No Postcoital bleeding: No OB History T1 L1 SAB1 IAB0 Ectopic0 Multiple0 Live Births1 Comment: menarche FFTP Provider Network Mgr History LMP: 02/11/2006, Ablation Age at Menarche: Age at First : Age at Menopause: Provider Network Mgr History Comments: Sexual Activity: Yes; Male Contraception: Surgical, Tubal Ligation PAST MEDICAL HISTORY Diagnosis Date Depression 07/06/2016 Elevated serum creatinine 1.21 Headache disorder 07/06/2016 Hormone replacement therapy (HRT) Leukopenia, unspecified type Malignant neoplasm of thyroid gland (HCC) 10/29/2017 radiation meopause hx of ablation 09/10/2018 Other abnormal Papanicolaou smear of cervix and cervical HPV(795.09) 2000 cryo/other facility Postablative hypothyroidism 07/06/2016 Renal insufficiency 2016 Thyroid cancer (HCC) 07/06/2016 Vitamin D deficiency 07/06/2016 PAST SURGICAL HISTORY Procedure Laterality Date HYSTEROSCOPY ENDOMETRIAL ABLATION LIG/TRNSXJ FLP TUBE ABDL/VAG APPR UNI/BI THYROIDECTOMY TOTAL/COMPLETE 2004 total FAMILY HISTORY Problem Relation Age of Onset Diabetes Paternal Grandmother other (goiter) Paternal Grandmother great grandmother SOCIAL HISTORY Social History Tobacco Use Smoking status: Never Smokeless tobacco: Never Vaping Use Vaping status: Never Used Substance Use Topics Alcohol use: Not Currently Drug use: No REVIEW OF SYSTEMS Abdomen: No abdominal pain, nausea, vomiting, diarrhea, or constipation. No bloating, early satiety, indigestion, or increased flatulence. Bladder: No dysuria, gross hematuria, urinary frequency, urinary urgency, +stress incontinence Breast: No breast lumps, nipple d/c, overlying skin changes, redness or skin retraction Allergies and current medication updated:Yes SENSITIVE EXAM: The sensitive examination was discussed with the Patient or Patient's Authorized Construction Project Coordinator. As applicable, any other physician, advance practice provider, medical student, or other health professional student that will be observing or involved in the sensitive examination for educational or training purposes was discussed with the Patient or Authorized Construction Project Coordinator. The Patient or Authorized Construction Project Coordinator has agreed to proceed with the sensitive examination. (Sensitive examination includes inspection and/or palpation of the breasts, pelvis, prostate and anorectal regions). EXAM: BP 100/62 Ht 5' 6.614 (1.69m) Wt 145 lb (65.8kg) LMP 02/11/2006 BMI 22.97 kg/(m2). GENERAL: pleasant, female in no apparent distress HEENT: Normocephalic, atraumatic, mucus membranes moist, and no lesions NECK: Supple, full range of motion, no adenopathy, and thyroid normal DERMATOLOGY: Normal, without lesions, non-icteric, and non-hirsute BREAST: soft, non-tender, symmetric, no dominant mass, normal nipple-areolar complex, no lymphadenopathy, and no nipple discharge CHEST: Normal inspiratory effort ABDOMEN: soft, non-tender, and no masses PELVIC: external genitalia normal, normal Bartholin's glands, urethra, Brunson's glands, no vulvar lesions, no cervical lesions, physiologic discharge present, normal appearing perineal body and perianal region BIMANUAL: uterus normal size, shape and consistency, no adnexal masses, and non-tender RECTOVAGINAL: deferred. NEURO: alert and oriented x3,exam grossly non-focal EXTREMITIES: normal ASSESSMENT/PLAN: 1) Health maintenance: Pap done with HPV. Mammogram ordered Nutrition, exercise and routine health maintenance exams reviewed. Calcium/Vitamin D supplementation information provided. Colon cancer screening: patient to discuss with PCP BMD: N/A 2) Follow up one year or sooner as needed Pt was given instruction on weaning off Celexa and to call with any issues. Aileen Siddiqui, BARREL SCRAPER.ASSISTANT PROFESSOR OF ANTHROPOLOGY Allergies As of Date: 12/13/2023 (No Known Allergies) Date Reviewed: 12/13/2023 Reviewed by: Allie Pelaez MA - Fully Assessed Reason for Visit: Well Woman [1463] Primary Visit Diagnosis:Encounter for gynecological examination (general) (routine) without abnormal findings [Z (more content not included)... Normal [facility] HIGH RISK HUMAN PAPILLOMA JOSÉ LUIS (HPV), PCR FOR DETECTION AND GENOTYPINGon 12-13-2023 HPV 16 Ag Ql (Unsp spec) Not detected Normal Not detected [facility] Comment on above: Order Comment: Speci men Type: FLUID SPECIMEN Ordering Facility: [facility] Address: [address] [place] [address] [place] [id number] Performed By: #### L [id number] #### [facility] CLIA [id number] [address] [place] [address] [place] [facility] CLIA [id number] [address] [place] [address] [place] #### HPVHRT #### [facility] CLIA [id number] [address] [place] [address] [place] HPV 18 Ag Ql (Unsp spec) Not detected Normal Not detected [facility] Comment on above: Order Comment: Speci men Type: FLUID SPECIMEN Ordering Facility: [facility] Address: [address] [place] [address] Performed By: #### L [id number] #### [facility] CLIA [id number] [address] [place] [address] [place] [facility] CLIA [id number] [address] [place] [address] [place] #### HPVHRT #### [facility] CLIA [id number] [address] [place] [address] [place] HPV 31+33+35+39+45+51+52+56 +58+59+66+68 DNA MARIA GUADALUPE+probe Ql (Cvx) Not detected Normal Not detected [facility] Comment on above: Order Comment: Speci men Type: FLUID SPECIMEN Ordering Facility: [facility] Address: [address] [place] [address] Result Comment: High Risk HPV Other Type includes HPV types 31, 33, 35, 39, 45, 51, 52, 56, 58, 59, 66 and 68. Performed By: #### L [id number] #### [facility] CLIA [id number] [address] [place] [address] [place] [facility] CLIA [id number] [address] [place] [address] [place] #### HPVHRT #### [facility] CLIA [id number] [address] [place] [address] [place] PAP TESTon 12-13-2023 ADEQUACY Normal [facility] Comment on above: Order Comment: Speci men Type: FLUID SPECIMEN Ordering Facility: [facility] Address: [address] [place] [address] Result Comment: Sati sfactory for interpretation. No endocervical component Performed By: #### L [id number] #### [facility] CLIA [id number] [address] [place] [address] [place] [facility] CLIA [id number] [address] [place] [address] [place] #### HPVHRT #### [facility] CLIA [id number] [address] [place] [address] [place] CASE REPORT Normal [facility] Comment on above: Order Comment: Speci men Type: FLUID SPECIMEN Ordering Facility: [facility] Address: [address] [place] [address] Result Comment: Gyne cologic Cytology Report Case: [id number] Authorizing Provider: Aileen Siddiqui APRN.ASSISTANT PROFESSOR OF ANTHROPOLOGY Collected: 12/13/2023 04:26 PM Ordering Location: OB/Gynecology Received: 12/13/2023 04:53 PM First Screen: Micah, Desiree, CT, ASCP Specimen: Pap Test, ThinPrep, Cervix Performed By: #### L [id number] #### [facility] CLIA [id number] [address] [place] [address] [place] [facility] CLIA [id number] [address] [place] [address] [place] #### HPVHRT #### [facility] CLIA [id number] [address] [place] [address] [place] CLINICAL HISTORY, CYTOLOGY, NETWORK RELATIONS CONSULTANT Post Menopausal Normal [facility] Comment on above: Order Comment: Speci men Type: FLUID SPECIMEN Ordering Facility: [facility] Address: [address] [place] [id number] Performed By: #### L [id number] #### [facility] CLIA [id number] [place], [place] [id number] [place] [facility] CLIA [id number] [address] [place] [id number] [place] #### HPVHRT #### [facility] CLIA [id number] [address] [place] [id number] [place] FINAL PERFORMING LAB Normal [facility] Comment on above: Order Comment: Speci men Type: FLUID SPECIMEN Ordering Facility: [facility] Address: [address] [place] [address] Result Comment: Tech nical component, arbor [employer] [facility] former screening performed at [facility], [address] [place], [place] [id number] CLIA# [id number] Diagnostic interpretation performed at [facility], [address] [place], [place] [id number] CLIA# [id number] Drying Oven Tender: Moreno Parisi M.D. Performed By: #### L [id number] #### [facility] CLIA [id number] [address] [place], [place] [id number] [place] [facility] CLIA [id number] [address] [place] [address] [place] #### HPVHRT #### [facility] CLIA [id number] [facility] [place] [id number] [place] HPV REFLEX Yes HPV Normal [facility] Comment on above: Order Comment: Speci men Type: FLUID SPECIMEN Ordering Facility: [facility] Address: [address] [place], [place] [id number] Performed By: #### L [id number] #### [facility] CLIA [id number] [address] [place], [place] [id number] [place] [facility] CLIA [id number] [address] [place] [address] [place] #### HPVHRT #### [facility] CLIA [id number] [address] [place] [address] [place] INTERPRETATION, CYTOLOGY, NETWORK RELATIONS CONSULTANT Normal [facility] Comment on above: Order Comment: Speci men Type: FLUID SPECIMEN Ordering Facility: [facility] Address: [address] [place] [address] Result Comment: Nega tive for intraepithelial lesion or malignancy. Performed By: #### L [id number] #### [facility] CLIA [id number] [address] [place] [address] [place] [facility] CLIA [id number] [address] [place] [address] [place] #### HPVHRT #### [facility] CLIA [id number] [address] [place] [address] [place] PAP DISCLAIMER COMMENT The Pap Smear is a screening test for cervical cancer. False negative results occur with all screening tests, emphasizing the need for rescreening at recommended intervals, and clinical correlation. Normal [facility] Comment on above: Order Comment: Speci men Type: FLUID SPECIMEN Ordering Facility: [facility] Address: [address] [place] [address] Performed By: #### L [id number] #### [facility] CLIA [id number] [place] [address] [place] [facility] CLIA [id number] [address] [place] [address] [place] #### HPVHRT #### [facility] CLIA [id number] [address] [place] [address] [place] PAP RESEARCH GREENHOUSE SUPERVISOR COMMENT This specimen has been analyzed by the [employer] Imaging System, an automated imaging and review system, which assists the laboratory in evaluating cells on ThinPrep Pap tests. Following automated imaging, selected bain from every slide are reviewed by a arbor end mainspring former. Normal [facility] Comment on above: Order Comment: Speci men Type: FLUID SPECIMEN Ordering Facility: [facility] Address: [address] [place] [address] Performed By: #### L [id number] #### [facility] CLIA [id number] OF [facility] CLIA [id number] [address] [place] [address] #### HPVHRT #### [facility] CLIA [id number] [address] [place] [address] OF [facility] Oncology Visit Reporton 11-17 Oncology Visit Report [facility] [address] [place] [address]. [place] [address] OFFICE VISIT Date of Service: 11/28/23 1616 MR#: [id number] Acct: [id number] Name: ЮЛИЯ SEQUEIRA Rep #: [id number] : 1960 From: Darrell Barney MD Age/Sex: 63/F Location: [facility] Status: Signed HPI Subjective Date of Service 11/28/23 Chief Complaint F/U for Leukopenia/Neutropeni a. History of Present Illness 63y.o.woman was found to have Leukopenia and neutropenia, referred for further evaluation. She feels well, had Thyroid cancer in 2003, had thyroidectomy follow, had uterine ablation 20yrs ago. Had blood work and comes for follow up. Feels tired. [facility] Medical History Vitamin D deficiency Thyroid cancer CKD (chronic kidney disease), stage III Neutropenia Leukopenia Renal disease Hypothyroidism Surgical History History of tubal ligation History of thyroid surgery Family History Father Cancer stomach Mother Heart disease Kidney disease Social History Smoking Status: Never smoker alcohol intake: never substance use type: does not use Intake Vital Signs 11/21/23 13:48 11/28/23 16:16 11/28/23 16:19 Height 5 ft 6 in 5 ft 6 in 5 ft 6 in Weight: 64.495 kg BMI 22.9 BP 114/66 Blood Pressure Location Lt brachial Position Sitting Respiration 18 Pulse 65 Pulse Source Monitor Temp 98.4 F Temperature Source Temporal Artery Pulse Oximetry (%) 100 Oxygen Delivery Method room air Intake Is patient in pain?: No Allergies No Known Allergies Allergy (Verified 11/28/23 16:18) Medications ???Medication ???Instructions ???Recorded ???Confirmed ???Type estradiol 1 mg tablet mg PO 05/11/23 11/28/23 History progesterone micronized 100 mg 100 mg PO DAILY 05/11/23 11/28/23 History capsule citalopram 20 mg tablet 20 mg PO DAILY 11/14/23 11/28/23 History amino acids ea PO 11/21/23 11/28/23 History chorionic gonadotropin, human 2 unit IM 11/21/23 11/28/23 History 10,000 unit IM powder for solution levothyroxine 75 mcg tablet 75 mcg PO QDAY 11/21/23 11/28/23 History (Levoxyl) liothyronine 5 mcg tablet 10 mcg PO DAILY 11/21/23 11/28/23 History magnesium 250 mg tablet 500 mg PO QDAY 11/21/23 11/28/23 History Central Venous Access Central Venous Access: No Laboratory Results 11/21/23 14:30 WBC 5.8 Hgb 12.5 Hct 37.2 Plt Count 212 Absolute Neuts (auto) 3.4 Absolute Lymphs (auto) 1.70 Exam Physical Exam Const alert, oriented x3 and no apparent distress Coding Level of Care Code Off vis,est,level 3 Exam Problem Focused Diagnoses Neutropenia, unspecified type D70.9 Leukopenia type: neutropenia Neutropenia type: unspecified Assessment and Plan Assessment and Plan (1) Leukopenia: Status: Resolved Qualifiers: Leukopenia type: neutropenia Neutropenia type: unspecified Qualified Code(s): D70.9 - Neutropenia, unspecified Comment: Discussed Leukopenia, her counts are normal now. Plan: To do observation. RTC 24 weeks with labs.. Plan Details Follow Up: 6 Months 11/28/23 8267 Date Darrell Man Signature: Date (if applicable) CC: [employer]-C Daja Dozier Normal [facility] CBC W/Diff, Automatedon 09-2023 Absolute Lymph 1.70 X10 3/uL Normal 0.83-4.51 [facility] Comment on above: Performed By: #### L 503.6550, L100.0100, L101.9900, L503.0105, L506.0250, L501.6710, L501.5200, L501.2300, L503.6030, L500.4050 #### [facility] [address] [place], [place], [phone] Absolute Neut 3.4 X10 3/uL Normal 2.0-7.7 [facility] Comment on above: Performed By: #### L 503.6550, L100.0100, L101.9900, L503.0105, L506.0250, L501.6710, L501.5200, L501.2300, L503.6030, L500.4050 #### [facility] [address] [place], [address] Basophils/100 WBC (Bld) 0.9 % Normal 0-1 [facility] Comment on above: Performed By: #### L 503.6550, L100.0100, L101.9900, L503.0105, L506.0250, L501.6710, L501.5200, L501.2300, L503.6030, L500.4050 #### [facility] [address] [place], [address] Eosinophils/100 WBC (Bld) 2.4 % Normal 0-5 [facility] Comment on above: Performed By: #### L 503.6550, L100.0100, L101.9900, L503.0105, L506.0250, L501.6710, L501.5200, L501.2300, L503.6030, L500.4050 #### [facility] [address] [place], [address] Erythrocyte distribution width (RBC) [Ratio] 12.9 % Normal 11.6-14.6 [facility] Comment on above: Performed By: #### L 503.6550, L100.0100, L101.9900, L503.0105, L506.0250, L501.6710, L501.5200, L501.2300, L503.6030, L500.4050 #### [facility] [address] [place], [place], [phone] Hematocrit (Bld) [Volume fraction] 37.2 % Normal 37-47 [facility] Comment on above: Performed By: #### L 503.6550, L100.0100, L101.9900, L503.0105, L506.0250, L501.6710, L501.5200, L501.2300, L503.6030, L500.4050 #### [facility] [address] [place], [address] Hemoglobin (Bld) [Mass/Vol] 12.5 g/dL Normal 12.0-15.0 [facility] Comment on above: Performed By: #### L 503.6550, L100.0100, L101.9900, L503.0105, L506.0250, L501.6710, L501.5200, L501.2300, L503.6030, L500.4050 #### [facility] [address] [facility] [place], [address] IG% 0.200 Normal 0.0-0.9 [facility] Comment on above: Result Comment: IG% - Immature Granulocytes (promyelocytes, myelocytes and metamyelocytes) > 1% indicates that a LEFT SHIFT is Present. Performed By: #### L 503.6550, L100.0100, L101.9900, L503.0105, L506.0250, L501.6710, L501.5200, L501.2300, L503.6030, L500.4050 #### [facility] [address] [place], [address] Lymphocytes/100 WBC (Bld) 29.5 % Normal 19-41 [facility] Comment on above: Performed By: #### L 503.6550, L100.0100, L101.9900, L503.0105, L506.0250, L501.6710, L501.5200, L501.2300, L503.6030, L500.4050 #### [facility] [address] [place], [address] MCH (RBC) [Entitic mass] 32.2 pg High 27.0-32.0 [facility] Comment on above: Performed By: #### L 503.6550, L100.0100, L101.9900, L503.0105, L506.0250, L501.6710, L501.5200, L501.2300, L503.6030, L500.4050 #### [facility] [address] [facility] [place], [address] MCHC (RBC) [Mass/Vol] 33.6 g/dL Normal 32-36 [facility] Comment on above: Performed By: #### L 503.6550, L100.0100, L101.9900, L503.0105, L506.0250, L501.6710, L501.5200, L501.2300, L503.6030, L500.4050 #### [facility] [address] [place], [address] MCV (RBC) [Entitic vol] 95.9 fL Normal 81-99 [facility] Comment on above: Performed By: #### L 503.6550, L100.0100, L101.9900, L503.0105, L506.0250, L501.6710, L501.5200, L501.2300, L503.6030, L500.4050 #### [facility] [address] [facility] [place], [address] Monocytes/100 WBC (Bld) 7.8 % Normal 0-10 [facility] Comment on above: Performed By: #### L 503.6550, L100.0100, L101.9900, L503.0105, L506.0250, L501.6710, L501.5200, L501.2300, L503.6030, L500.4050 #### [facility] [address] [place], [address] Neutrophils/100 WBC (Bld) 59.2 % Normal 47-70 [facility] Comment on above: Performed By: #### L 503.6550, L100.0100, L101.9900, L503.0105, L506.0250, L501.6710, L501.5200, L501.2300, L503.6030, L500.4050 #### [facility] [address] [facility] [place], [address] Nucleated RBC (Bld) [#/Vol] 0 10*3/uL Normal 0-5 [facility] Comment on above: Performed By: #### L 503.6550, L100.0100, L101.9900, L503.0105, L506.0250, L501.6710, L501.5200, L501.2300, L503.6030, L500.4050 #### [facility] [address] [place], [address] Platelet mean volume (Bld) [Entitic vol] 9.6 fL Normal 6.2-12.0 [facility] Comment on above: Performed By: #### L 503.6550, L100.0100, L101.9900, L503.0105, L506.0250, L501.6710, L501.5200, L501.2300, L503.6030, L500.4050 #### [facility] [address] [place], [address] Platelets (Bld) [#/Vol] 212 10*3/uL Normal 150-450 [facility] Comment on above: Performed By: #### L 503.6550, L100.0100, L101.9900, L503.0105, L506.0250, L501.6710, L501.5200, L501.2300, L503.6030, L500.4050 #### [facility] [address] [place], [address] RBC (Bld) [#/Vol] 3.88 10*6/uL Low 4.2-5.4 [facility] Comment on above: Performed By: #### L 503.6550, L100.0100, L101.9900, L503.0105, L506.0250, L501.6710, L501.5200, L501.2300, L503.6030, L500.4050 #### [facility] [address] [place], [address] RDW SD 45.6 fl High 35.1-43.9 [facility] Comment on above: Performed By: #### L 503.6550, L100.0100, L101.9900, L503.0105, L506.0250, L501.6710, L501.5200, L501.2300, L503.6030, L500.4050 #### [facility] [address] [facility] [place], [address] WBC (Bld) [#/Vol] 5.8 10*3/uL Normal 4.4-11.0 [facility] Comment on above: Performed By: #### L 503.6550, L100.0100, L101.9900, L503.0105, L506.0250, L501.6710, L501.5200, L501.2300, L503.6030, L500.4050 #### [facility] [address] [facility] [place], [address] CRPon 11-21-2023 C-REACTIVE PROT < 2.90 Normal 0.0-3.0 [facility] Comment on above: Order Comment: N Result Comment: C-Re active Protein (CRP) provides useful information for the diagnosis, therapy and monitoring of inflammatory processes and associated diseases. For the evaluation of Relative Risk for Cardiovascular Disease, a High Sensitivity CRP (HSCRP) should be ordered. Performed By: #### L 503.6550, L100.0100, L101.9900, L503.0105, L506.0250, L501.6710, L501.5200, L501.2300, L503.6030, L500.4050 ####[facility] [address] [facility] [place], [place], [phone] Comprehensive Metabolic Prof ilon 11-21-2023 Albumin [Mass/Vol] 3.4 g/dL Normal 3.2-5.0 [facility] Comment on above: Order Comment: N Performed By: #### L 503.6550, L100.0100, L101.9900, L503.0105, L506.0250, L501.6710, L501.5200, L501.2300, L503.6030, L500.4050 #### [facility] [address] [facility] [place], [address] Albumin/Globulin [Mass ratio] 1.1 {ratio} Normal 0.9-2.4 [facility] Comment on above: Order Comment: N Performed By: #### L 503.6550, L100.0100, L101.9900, L503.0105, L506.0250, L501.6710, L501.5200, L501.2300, L503.6030, L500.4050 #### [facility] [address] [facility] [place], [address] ALK P 42 U/L Low 45-117 [facility] Comment on above: Order Comment: N Performed By: #### L 503.6550, L100.0100, L101.9900, L503.0105, L506.0250, L501.6710, L501.5200, L501.2300, L503.6030, L500.4050 #### [facility] [address] [facility] [place], [place], [phone] ALT [Catalytic activity/Vol] 20 U/L Normal 13-56 [facility] Comment on above: Order Comment: N Performed By: #### L 503.6550, L100.0100, L101.9900, L503.0105, L506.0250, L501.6710, L501.5200, L501.2300, L503.6030, L500.4050 #### [facility] [address] [place], [address] AST [Catalytic activity/Vol] 15 U/L Normal 15-37 [facility] Comment on above: Order Comment: N Performed By: #### L 503.6550, L100.0100, L101.9900, L503.0105, L506.0250, L501.6710, L501.5200, L501.2300, L503.6030, L500.4050 #### [facility] [address] [place], [place], [phone] Bilirubin [Mass/Vol] 0.40 mg/dL Normal 0.20-1.00 [facility] Comment on above: Order Comment: N Result Comment: For patients on eltrombopag therapy, use of Dimension [place] TBIL is not recommended. Performed By: #### L 503.6550, L100.0100, L101.9900, L503.0105, L506.0250, L501.6710, L501.5200, L501.2300, L503.6030, L500.4050 #### [facility] [address] [place], [place], [phone] BUN/CRE 31.3 RATIO High 10-20 [facility] Comment on above: Order Comment: N Performed By: #### L 503.6550, L100.0100, L101.9900, L503.0105, L506.0250, L501.6710, L501.5200, L501.2300, L503.6030, L500.4050 #### [facility] [address] [place], [place], [phone] CA,Total 9.2 mg/dL Normal 8.5-10.1 [facility] Comment on above: Order Comment: N Performed By: #### L 503.6550, L100.0100, L101.9900, L503.0105, L506.0250, L501.6710, L501.5200, L501.2300, L503.6030, L500.4050 #### [facility] [address] [place], [place], [phone] Chloride [Moles/Vol] 103 mmol/L Normal 98-107 [facility] Comment on above: Order Comment: N Performed By: #### L 503.6550, L100.0100, L101.9900, L503.0105, L506.0250, L501.6710, L501.5200, L501.2300, L503.6030, L500.4050 #### [facility] [address] [place], [address] CO2 [Moles/Vol] 25.0 mmol/L Normal 21.0-32.0 [facility] Comment on above: Order Comment: N Performed By: #### L 503.6550, L100.0100, L101.9900, L503.0105, L506.0250, L501.6710, L501.5200, L501.2300, L503.6030, L500.4050 #### [facility] [address] [place], [address] Creatinine [Mass/Vol] 0.96 mg/dL Normal 0.55-1.02 [facility] Comment on above: Order Comment: N Result Comment: The validity of the calculated GFR GFRAA in patients over 70 years has not been determined. Clinical correlation is essential. Performed By: #### L 503.6550, L100.0100, L101.9900, L503.0105, L506.0250, L501.6710, L501.5200, L501.2300, L503.6030, L500.4050 #### [facility] [address] [place], [address] EST GFR - AA 76 mL/min Normal >60 [facility] Comment on above: Order Comment: N Result Comment: Afri can Togolese GFR Calc Performed By: #### L 503.6550, L100.0100, L101.9900, L503.0105, L506.0250, L501.6710, L501.5200, L501.2300, L503.6030, L500.4050 #### [facility] [address] [place], [address] GAP 8 Normal 5-15 [facility] Comment on above: Order Comment: N Performed By: #### L 503.6550, L100.0100, L101.9900, L503.0105, L506.0250, L501.6710, L501.5200, L501.2300, L503.6030, L500.4050 #### [facility] [address] [place], [address] GFR/1.73 sq M.predicted among non-blacks MDRD (S/P/Bld) [Vol rate/Area] 63 mL/min/{1.73_m2} Normal >60 [facility] Comment on above: Order Comment: N Result Comment: Non- GFR Calc Performed By: #### L 503.6550, L100.0100, L101.9900, L503.0105, L506.0250, L501.6710, L501.5200, L501.2300, L503.6030, L500.4050 #### [facility] [address] [place], [address] Globulin (S) [Mass/Vol] 3.0 g/dL Normal 2.2-4.2 [facility] Comment on above: Order Comment: N Performed By: #### L 503.6550, L100.0100, L101.9900, L503.0105, L506.0250, L501.6710, L501.5200, L501.2300, L503.6030, L500.4050 #### [facility] [address] [place], [address] Glucose [Mass/Vol] 95 mg/dL Normal 74-106 [facility] Comment on above: Order Comment: N Performed By: #### L 503.6550, L100.0100, L101.9900, L503.0105, L506.0250, L501.6710, L501.5200, L501.2300, L503.6030, L500.4050 #### [facility] [address] [place], [address] Potassium [Moles/Vol] 3.7 mmol/L Normal 3.5-5.1 [facility] Comment on above: Order Comment: N Performed By: #### L 503.6550, L100.0100, L101.9900, L503.0105, L506.0250, L501.6710, L501.5200, L501.2300, L503.6030, L500.4050 #### [facility] [address] [place], [place], [phone] Sodium [Moles/Vol] 136 mmol/L Normal 136-145 [facility] Comment on above: Order Comment: N Performed By: #### L 503.6550, L100.0100, L101.9900, L503.0105, L506.0250, L501.6710, L501.5200, L501.2300, L503.6030, L500.4050 #### [facility] [address] [place], [place], [phone] T PROT 6.4 g/dL Normal 6.4-8.2 [facility] Comment on above: Order Comment: N Performed By: #### L 503.6550, L100.0100, L101.9900, L503.0105, L506.0250, L501.6710, L501.5200, L501.2300, L503.6030, L500.4050 #### [facility] [address] [place], [place], [phone] Urea nitrogen [Mass/Vol] 30 mg/dL High 7-18 [facility] Comment on above: Order Comment: N Performed By: #### L 503.6550, L100.0100, L101.9900, L503.0105, L506.0250, L501.6710, L501.5200, L501.2300, L503.6030, L500.4050 #### [facility] [address] [place], [place], [phone] Erythrocyte Sed Rateon 11-20 SED RATE < 1 Normal 0-30 [facility] Comment on above: Performed By: #### L 503.6550, L100.0100, L101.9900, L503.0105, L506.0250, L501.6710, L501.5200, L501.2300, L503.6030, L500.4050 #### [facility] [address] [place], [place], [phone] Erythrocyte sedimentation ra teOrdered By: Darrell Barney on 11-21-2023 ESR (Bld) [Velocity] mm/h 0-30 [facility] Ferritinon 11-21-2023 Ferritin [Mass/Vol] 38 ng/mL Normal [facility] Comment on above: Order Comment: N Performed By: #### L 503.6550, L100.0100, L101.9900, L503.0105, L506.0250, L501.6710, L501.5200, L501.2300, L503.6030, L500.4050 ####[facility] [address] [place], [address] Ferritin measurementOrdered By: Darrell Barney on 11-21-2023 Ferritin [Mass/Vol] 38 ng/mL [facility] Folates, (Folic Acid)on FOLATES 11.20 ng/mL Normal 3.1-55.4 [facility] Comment on above: Order Comment: N Performed By: #### L 503.6550, L100.0100, L101.9900, L503.0105, L506.0250, L501.6710, L501.5200, L501.2300, L503.6030, L500.4050 ####[facility] [address] [place], [place], [phone] Iron measurement (mass/mass) Ordered By: Darrell Barney on 11-21-2023 Iron (Unsp spec) [Mass/Mass] 103 ug/dL 50-170 [facility] Iron+Iron Binding Capacityon 11-21-2023 Iron [Mass/Vol] 103 ug/dL Normal 50-170 [facility] Comment on above: Order Comment: N Performed By: #### L 503.6550, L100.0100, L101.9900, L503.0105, L506.0250, L501.6710, L501.5200, L501.2300, L503.6030, L500.4050 ####[facility] [address] [place], [place], [phone] IRON SATURATION 29.3 Normal 15.0-55.0 [facility] Comment on above: Order Comment: N Performed By: #### L 503.6550, L100.0100, L101.9900, L503.0105, L506.0250, L501.6710, L501.5200, L501.2300, L503.6030, L500.4050 ####[facility] [address] [place], [place], [phone] TIBC 352 ug/dL Normal 250-450 [facility] Comment on above: Order Comment: N Performed By: #### L 503.6550, L100.0100, L101.9900, L503.0105, L506.0250, L501.6710, L501.5200, L501.2300, L503.6030, L500.4050 ####[facility] [address] [place], [place], [phone] Magnesiumon 11-21-2023 Magnesium [Mass/Vol] 2.7 mg/dL High 1.6-2.6 [facility] Comment on above: Order Comment: N Performed By: #### L 503.6550, L100.0100, L101.9900, L503.0105, L506.0250, L501.6710, L501.5200, L501.2300, L503.6030, L500.4050 #### [facility] [address] [place], [address] Magnesium measurementOrdered By: Darrell Barney on 11-21-2023 Magnesium [Mass/Vol] 2.7 mg/dL High 1.6-2.6 [facility] Oncology Visit Reporton Oncology Visit Report [facility] [facility] [address] [place] [address] OFFICE VISIT Date of Service: 11/21/23 1347 MR#: [id number] Acct: [id number] Name: ЮЛИЯ SEQUEIRA Rep #: [id number] : 1960 From: Darrell Barney MD Age/Sex: 63/F Location: [facility] Status: Signed HPI Subjective Date of Service 11/21/23 Chief Complaint Referred for Leukopenia/Neutropeni a. History of Present Illness 63y.o.woman was found to have Leukopenia and neutropenia, referred for further evaluation. She feels well, had Thyroid cancer in 2003, had thyroidectomy follow, had uterine ablation 20yrs ago. [facility] Medical History (Updated 11/21/23 @ 14:[address] Darrell Barney MD) Vitamin D deficiency Thyroid cancer CKD (chronic kidney disease), stage III Neutropenia Leukopenia Renal disease Hypothyroidism Surgical History History of tubal ligation History of thyroid surgery Family History Father Cancer stomach Mother Heart disease Kidney disease Social History Smoking Status: Never smoker alcohol intake: never substance use type: does not use ROS Constitutional Constitutional: Reports systems reviewed and no addt'l complaints, except as documented Eyes Eyes: Reports systems reviewed and no addt'l complaints, except as documented ENT HEENT: Reports systems reviewed and no addt'l complaints, except as documented Cardiovascular Cardiovascular: Reports systems reviewed and no addt'l complaints, except as documented Respiratory/Chest Respiratory/Chest: Reports systems reviewed and no addt'l complaints, except as documented Gastrointestinal Gastrointestinal: Reports systems reviewed and no addt'l complaints, except as documented Genitourinary Genitourinary: Reports systems reviewed and no addt'l complaints, except as documented Musculoskeletal Musculoskeletal: Reports systems reviewed and no addt'l complaints, except as documented Integumentary Integumentary: Reports systems reviewed and no addt'l complaints, except as documented Neurologic Neurologic: Reports systems reviewed and no addt'l complaints, except as documented Psychiatric Psychiatric: Reports systems reviewed and no addt'l complaints, except as documented Endocrine Endocrinology: Reports systems reviewed and no addt'l complaints, except as documented Hematologic/Lymphatic Hematologic/Lymphatic : Reports systems reviewed and no addt'l complaints, except as documented Allergic/Immunologic Allergic/Immunologic: Reports systems reviewed and no addt'l complaints, except as documented Intake Vital Signs 05/11/23 17:48 11/21/23 13:48 Height 5 ft 6 in 5 ft 6 in Weight: 64.438 kg BMI 22.9 BP 110/6 L Blood Pressure Location Lt brachial Position Sitting Respiration 18 Pulse 61 Pulse Source Monitor Temp 97.5 F L Temperature Source Temporal Artery Pulse Oximetry (%) 99 Oxygen Delivery Method room air Intake Is patient in pain?: No Allergies No Known Allergies Allergy (Verified 11/21/23 13:51) Medications ???Medication ???Instructions ???Recorded ???Confirmed ???Type estradiol 1 mg tablet mg PO 05/11/23 11/21/23 History progesterone micronized 100 mg 100 mg PO DAILY 05/11/23 11/21/23 History capsule citalopram 20 mg tablet 20 mg PO DAILY 11/14/23 11/21/23 History amino acids ea PO 11/21/23 11/21/23 History chorionic gonadotropin, human 2 unit IM 11/21/23 11/21/23 History 10,000 unit IM powder for solution levothyroxine 75 mcg tablet 75 mcg PO QDAY 11/21/23 11/21/23 History (Levoxyl) liothyronine 5 mcg tablet 10 mcg PO DAILY 11/21/23 11/21/23 History magnesium 250 mg tablet 500 mg PO QDAY 11/21/23 11/21/23 History Exam Physical Exam Const alert, oriented x3 and no apparent distress HEENT normocephalic, external ears normal and external nose normal Eyes conjunctivae normal and no scleral icterus Neck supple Lymph Lymphatic: no lymphadenopathy noted Resp normal respiratory effort and clear to auscultation bilaterally Cardio regular rate, regular rhythm, S1 normal heart sound and S2 normal heart sound no CVA tenderness Back/Spine no CVA tenderness and thoracic and lumbar spine normal to inspection Extremity normal to inspection and no clubbing, cyanosis or edema Neuro oriented x3, CN's II-XII intact bilaterally and moves all extremities Coding Level of Care Code Off vis,new,level 3 Exam Problem Focused Diagnoses Neutropenia, unspecified type D70.9 Leukopenia type: neutropenia Neutropenia type: unspecified Assessment and Plan Assessment and Plan (1) Leukopenia: Status: Chronic Qualifiers: Leukopenia type: neutropenia (more content not included)... Normal [facility] Phosphoruson 11-21-2023 Phosphate [Mass/Vol] 3.0 mg/dL Normal 2.5-4.9 [facility] Comment on above: Order Comment: N Performed By: #### L 503.6550, L100.0100, L101.9900, L503.0105, L506.0250, L501.6710, L501.5200, L501.2300, L503.6030, L500.4050 #### [facility] [address] [place], [place], [id number] Serum or plasma iron saturat ion measurement (mass fraction)Ordered By: Darrell Barney on 11-21-2023 Iron saturation [Mass fraction] 29.3 % 15.0-55.0 [facility] Vitamin B12on 11-21-2023 Cobalamin (Vitamin B12) [Mass/Vol] 976 pg/mL [facility] 211-1 [facility] Comment on above: Performed By: #### L 503.6550, L100.0100, L101.9900, L503.0105, L506.0250, L501.6710, L501.5200, L501.2300, L503.6030, L500.4050 #### [facility] [address] [place], [place], [id number] ([id number]) Vitamin B12 measurementOrder ed By: Darrell Barney on 11-21-2023 Cobalamin (Vitamin B12) [Mass/Vol] 976 pg/mL [facility] [address] [place] [address] .Auto Diffon 11-03-2023 Basophil, Absolute 0.1 10 3/mcL Normal 0.0-0.2 [facility] ([place] Comment on above: Performed By: #### L IPID, CMP, ANEU, TSH, FT3, ADIFF, FT4, VIDH, CBC, GFR #### [address] [address] #### PTH #### [address] [address] Basophils/100 WBC (Bld) 1.5 % Normal 0.0-2.5 [facility] ([place]) Comment on above: Performed By: #### L IPID, CMP, ANEU, TSH, FT3, ADIFF, FT4, VIDH, CBC, GFR #### [address] [address] #### PTH #### [address] [address] Eosinophil, Absolute 0.2 10 3/mcL Normal 0.0-0.4 [facility] ([place]) Comment on above: Performed By: #### L IPID, CMP, ANEU, TSH, FT3, ADIFF, FT4, VIDH, CBC, GFR #### [address] [address] #### PTH #### [address] [address] Eosinophils/100 WBC (Bld) 4.1 % Normal 0.0-7.0 [facility] ([place] Comment on above: Performed By: #### L IPID, CMP, ANEU, TSH, FT3, ADIFF, FT4, VIDH, CBC, GFR #### [address] [address] #### PTH #### [address] [address] Lymphocyte, Absolute 1.3 10 3/mcL Normal 0.8-3.9 [facility] ([place]) Comment on above: Performed By: #### L IPID, CMP, ANEU, TSH, FT3, ADIFF, FT4, VIDH, CBC, GFR #### [address] [address] #### PTH #### [address] [address] Lymphocytes/100 WBC (Bld) 35.6 % Normal 10.0-50.0 [facility] ([place] Comment on above: Performed By: #### L IPID, CMP, ANEU, TSH, FT3, ADIFF, FT4, VIDH, CBC, GFR #### [place] [address] #### PTH #### [address] [address] Monocyte, Absolute 0.4 10 3/mcL Normal 0.2-1.0 [facility] ([place]) Comment on above: Performed By: #### L IPID, CMP, ANEU, TSH, FT3, ADIFF, FT4, VIDH, CBC, GFR #### [place] [address] #### PTH #### [address] [address] Monocytes/100 WBC (Bld) 9.4 % Normal 1.7-13.0 [facility] ([place]) Comment on above: Performed By: #### L IPID, CMP, ANEU, TSH, FT3, ADIFF, FT4, VIDH, CBC, GFR #### [place] [address] #### PTH #### [address] [address] Neutrophils/100 WBC (Bld) 49.4 % Normal 37.0-80.0 [facility] ([place] Comment on above: Performed By: #### L IPID, CMP, ANEU, TSH, FT3, ADIFF, FT4, VIDH, CBC, GFR #### [address] [address] #### PTH #### [address] [address] .NEUABSon 11-03-2023 Neutrophil, Absolute 1.9 10 3/mcL Low 2.9-6.2 [facility] ([place] Comment on above: Performed By: #### L IPID, CMP, ANEU, TSH, FT3, ADIFF, FT4, VIDH, CBC, GFR #### [address] [address] #### PTH #### [place] [address] CBCon 11-03-2023 Erythrocyte distribution width (RBC) [Ratio] 13.5 % Normal 11.5-14.5 [facility] ([place] Comment on above: Performed By: #### L IPID, CMP, ANEU, TSH, FT3, ADIFF, FT4, VIDH, CBC, GFR #### [place] [address] #### PTH #### [place] [address] Hematocrit (Bld) [Volume fraction] 40.3 % Normal 37.0-47.0 [facility] ([place] Comment on above: Performed By: #### L IPID, CMP, ANEU, TSH, FT3, ADIFF, FT4, VIDH, CBC, GFR #### [place] [address] #### PTH #### [place] [address] Hgb 13.7 G/dL Normal 12.0-16.0 [facility] ([place] Comment on above: Performed By: #### L IPID, CMP, ANEU, TSH, FT3, ADIFF, FT4, VIDH, CBC, GFR #### [place] [address] #### PTH #### [place] [address] MCH (RBC) [Entitic mass] 33.1 pg High 27.0-31.2 [facility] ([place] Comment on above: Performed By: #### L IPID, CMP, ANEU, TSH, FT3, ADIFF, FT4, VIDH, CBC, GFR #### [place] [address] #### PTH #### [place] [address] MCHC 34.1 G/dL Normal 33.0-37.0 [facility] ([place] Comment on above: Performed By: #### L IPID, CMP, ANEU, TSH, FT3, ADIFF, FT4, VIDH, CBC, GFR #### [place] [address] #### PTH #### [place] [address] MCV (RBC) [Entitic vol] 97.2 fL High 80.0-94.0 [facility] ([place]) Comment on above: Performed By: #### L IPID, CMP, ANEU, TSH, FT3, ADIFF, FT4, VIDH, CBC, GFR #### [place] [address] #### PTH #### [place] [address] Platelet 215 10 3/mcL Normal 130-400 [facility] ([place]) Comment on above: Performed By: #### L IPID, CMP, ANEU, TSH, FT3, ADIFF, FT4, VIDH, CBC, GFR #### [place] [address] #### PTH #### [place] [address] Platelet mean volume (Bld) [Entitic vol] 8.8 fL Normal 7.4-10.4 [facility] ([place]) Comment on above: Performed By: #### L IPID, CMP, ANEU, TSH, FT3, ADIFF, FT4, VIDH, CBC, GFR #### [place] [address] #### PTH #### [place] [address] RBC 4.14 10 6/mcL Low 4.20-5.40 [facility] ([place]) Comment on above: Performed By: #### L IPID, CMP, ANEU, TSH, FT3, ADIFF, FT4, VIDH, CBC, GFR #### [address] [address] #### PTH #### [place] [address] WBC 3.8 10 3/mcL Low 4.6-10.8 [facility] ([place] Comment on above: Performed By: #### L IPID, CMP, ANEU, TSH, FT3, ADIFF, FT4, VIDH, CBC, GFR #### [address] [address] #### PTH #### [place] [address] FT3on 11-03-2023 Free T3 [Mass/Vol] 3.40 pg/mL Normal 2.30-4.00 [facility] ([place]) Comment on above: Performed By: #### L IPID, CMP, ANEU, TSH, FT3, ADIFF, FT4, VIDH, CBC, GFR #### [address] [address] #### PTH #### [place] [address] FT4on 11-03-2023 Free T4 [Mass/Vol] 0.78 ng/dL Normal 0.76-1.46 [facility] ([place] Comment on above: Performed By: #### L IPID, CMP, ANEU, TSH, FT3, ADIFF, FT4, VIDH, CBC, GFR #### [place] [address] #### PTH #### [place] [address] TSHon 11-03-2023 TSH Qn 0.65 m[IU]/L Normal 0.36-3.74 [facility] ([place] Comment on above: Performed By: #### L IPID, CMP, ANEU, TSH, FT3, ADIFF, FT4, VIDH, CBC, GFR #### [address] [address] #### PTH #### [address] [address] .Auto Diffon 10-05-2023 Basophil, Absolute 0.1 10 3/mcL Normal 0.0-0.2 [facility] ([place] Comment on above: Performed By: #### L IPID, CMP, ANEU, TSH, FT3, ADIFF, FT4, VIDH, CBC, GFR #### [address] [address] #### PTH #### [address] [address] Basophils/100 WBC (Bld) 2.0 % Normal 0.0-2.5 [facility] ([place] Comment on above: Performed By: #### L IPID, CMP, ANEU, TSH, FT3, ADIFF, FT4, VIDH, CBC, GFR #### [address] [address] #### PTH #### [address] [address] Eosinophil, Absolute 0.3 10 3/mcL Normal 0.0-0.4 [facility] ([place]) Comment on above: Performed By: #### L IPID, CMP, ANEU, TSH, FT3, ADIFF, FT4, VIDH, CBC, GFR #### [address] [address] #### PTH #### [address] [address] Eosinophils/100 WBC (Bld) 6.8 % Normal 0.0-7.0 [facility] ([place] Comment on above: Performed By: #### L IPID, CMP, ANEU, TSH, FT3, ADIFF, FT4, VIDH, CBC, GFR #### [address] [address] #### PTH #### [address] [address] Lymphocyte, Absolute 1.8 10 3/mcL Normal 0.8-3.9 [facility] ([place]) Comment on above: Performed By: #### L IPID, CMP, ANEU, TSH, FT3, ADIFF, FT4, VIDH, CBC, GFR #### [address] [address] #### PTH #### [address] [address] Lymphocytes/100 WBC (Bld) 44.8 % Normal 10.0-50.0 [facility] ([place] Comment on above: Performed By: #### L IPID, CMP, ANEU, TSH, FT3, ADIFF, FT4, VIDH, CBC, GFR #### [address] [address] #### PTH #### [address] [address] Monocyte, Absolute 0.3 10 3/mcL Normal 0.2-1.0 [facility] ([place] Comment on above: Performed By: #### L IPID, CMP, ANEU, TSH, FT3, ADIFF, FT4, VIDH, CBC, GFR #### [address] [address] #### PTH #### [address] [address] Monocytes/100 WBC (Bld) 7.9 % Normal 1.7-13.0 [facility] ([place] Comment on above: Performed By: #### L IPID, CMP, ANEU, TSH, FT3, ADIFF, FT4, VIDH, CBC, GFR #### [address] [address] #### PTH #### [address] [address] Neutrophils/100 WBC (Bld) 38.5 % Normal 37.0-80.0 [facility] ([place] Comment on above: Performed By: #### L IPID, CMP, ANEU, TSH, FT3, ADIFF, FT4, VIDH, CBC, GFR #### [address] [address] #### PTH #### [address] [address] .GFRon 10-05-2023 GFR 66 ml/min/1.73sqm Normal [facility] ([place] Comment on above: Result Comment: GFR Population mean for , Non- Americans Ages 20-29 = 116 mL/min/1.73 sq.m. Ages 30-39 = 107 mL/min/1.73 sq.m. Ages 40-49 = 99 mL/min/1.73 sq.m. Ages 50-59 = 93 mL/min/1.73 sq.m. Ages 60-69 = 85 mL/min/1.73 sq.m. Ages 70+ = 75 mL/min/1.73 sq.m. Chronic Kidney Disease: Less than 60 mL/min/1.73 square meters End Stage Renal Disease: Less than 15 mL/min/1.73 square meters Performed By: #### L IPID, CMP, ANEU, TSH, FT3, ADIFF, FT4, VIDH, CBC, GFR #### [address] [address] #### PTH #### [address] [address] GFR Non- 54 ml/min/1.73sqm Normal [facility] ([place] Comment on above: Result Comment: GFR Population mean for , Non- Americans Ages 20-29 = 116 mL/min/1.73 sq.m. Ages 30-39 = 107 mL/min/1.73 sq.m. Ages 40-49 = 99 mL/min/1.73 sq.m. Ages 50-59 = 93 mL/min/1.73 sq.m. Ages 60-69 = 85 mL/min/1.73 sq.m. Ages 70+ = 75 mL/min/1.73 sq.m. Chronic Kidney Disease: Less than 60 mL/min/1.73 square meters End Stage Renal Disease: Less than 15 mL/min/1.73 square meters Performed By: #### L IPID, CMP, ANEU, TSH, FT3, ADIFF, FT4, VIDH, CBC, GFR #### [address] [address] #### PTH #### [address] [address] .NEUABSon 10-05-2023 Neutrophil, Absolute 1.5 10 3/mcL Low 2.9-6.2 [facility] ([place] Comment on above: Performed By: #### L IPID, CMP, ANEU, TSH, FT3, ADIFF, FT4, VIDH, CBC, GFR #### [address] [address] #### PTH #### [address] [address] CBCon 10-05-2023 Erythrocyte distribution width (RBC) [Ratio] 13.0 % Normal 11.5-14.5 [facility] ([place] Comment on above: Performed By: #### L IPID, CMP, ANEU, TSH, FT3, ADIFF, FT4, VIDH, CBC, GFR #### [place] [address] #### PTH #### [place] [address] Hematocrit (Bld) [Volume fraction] 39.9 % Normal 37.0-47.0 [facility] ([place] Comment on above: Performed By: #### L IPID, CMP, ANEU, TSH, FT3, ADIFF, FT4, VIDH, CBC, GFR #### [place] [address] #### PTH #### [place] [address] Hgb 13.6 G/dL Normal 12.0-16.0 [facility] ([place] Comment on above: Performed By: #### L IPID, CMP, ANEU, TSH, FT3, ADIFF, FT4, VIDH, CBC, GFR #### [address] [address] #### PTH #### [place] [address] MCH (RBC) [Entitic mass] 32.9 pg High 27.0-31.2 [facility] ([place] Comment on above: Performed By: #### L IPID, CMP, ANEU, TSH, FT3, ADIFF, FT4, VIDH, CBC, GFR #### [address] [address] #### PTH #### [place] [address] MCHC 34.1 G/dL Normal 33.0-37.0 [facility] ([place] Comment on above: Performed By: #### L IPID, CMP, ANEU, TSH, FT3, ADIFF, FT4, VIDH, CBC, GFR #### [place] [address] #### PTH #### [place] [address] MCV (RBC) [Entitic vol] 96.6 fL High 80.0-94.0 [facility] ([place] Comment on above: Performed By: #### L IPID, CMP, ANEU, TSH, FT3, ADIFF, FT4, VIDH, CBC, GFR #### [place] [address] #### PTH #### [place] [address] Platelet 238 10 3/mcL Normal 130-400 [facility] ([place] Comment on above: Performed By: #### L IPID, CMP, ANEU, TSH, FT3, ADIFF, FT4, VIDH, CBC, GFR #### [place] [address] #### PTH #### [place] [address] Platelet mean volume (Bld) [Entitic vol] 8.3 fL Normal 7.4-10.4 [facility] ([place] Comment on above: Performed By: #### L IPID, CMP, ANEU, TSH, FT3, ADIFF, FT4, VIDH, CBC, GFR #### [place] [id number] #### PTH #### [address] [address] RBC 4.12 10 6/mcL Low 4.20-5.40 [facility] ([place] Comment on above: Performed By: #### L IPID, CMP, ANEU, TSH, FT3, ADIFF, FT4, VIDH, CBC, GFR #### [place] [address] #### PTH #### [place] [address] WBC 3.9 10 3/mcL Low 4.6-10.8 [facility] ([place] Comment on above: Performed By: #### L IPID, CMP, ANEU, TSH, FT3, ADIFF, FT4, VIDH, CBC, GFR #### [place] [address] #### PTH #### [address] 10-05-2023 Albumin Level 3.7 G/dL Normal 3.4-4.8 [facility] ([place] Comment on above: Performed By: #### L IPID, CMP, ANEU, TSH, FT3, ADIFF, FT4, VIDH, CBC, GFR #### [address] [address] #### PTH #### [place] [address] Albumin/Globulin [Mass ratio] 1.4 {ratio} Normal 1.1-2.5 [facility] ([place] Comment on above: Performed By: #### L IPID, CMP, ANEU, TSH, FT3, ADIFF, FT4, VIDH, CBC, GFR #### [place] [address] #### PTH #### [place] [address] ALP [Catalytic activity/Vol] 41 U/L Normal 40-135 [facility] ([place] Comment on above: Performed By: #### L IPID, CMP, ANEU, TSH, FT3, ADIFF, FT4, VIDH, CBC, GFR #### [place] [address] #### PTH #### [address] [address] ALT [Catalytic activity/Vol] 19 U/L Normal 14-59 [facility] ([place] Comment on above: Performed By: #### L IPID, CMP, ANEU, TSH, FT3, ADIFF, FT4, VIDH, CBC, GFR #### [place] [address] #### PTH #### [place] [address] AST [Catalytic activity/Vol] 14 U/L Normal 10-40 [facility] ([place] Comment on above: Performed By: #### L IPID, CMP, ANEU, TSH, FT3, ADIFF, FT4, VIDH, CBC, GFR #### [place] [address] #### PTH #### [place] [address] Bili Total 0.6 mg/dL Normal 0.2-1.0 [facility] ([place] Comment on above: Result Comment: Use of this assay is not recommended for patients undergoing treatment with eltrombopag due to the potential for falsely elevated results. Performed By: #### L IPID, CMP, ANEU, TSH, FT3, ADIFF, FT4, VIDH, CBC, GFR #### [place] [address] #### PTH #### [place] [id number] BUN/Creatinine Ratio 22 ratio Normal 7-27 [facility] ([place] Comment on above: Performed By: #### L IPID, CMP, ANEU, TSH, FT3, ADIFF, FT4, VIDH, CBC, GFR #### [place] [address] #### PTH #### [address] [address] Calcium [Mass/Vol] 9.1 mg/dL Normal 8.4-10.2 [facility] ([place] Comment on above: Performed By: #### L IPID, CMP, ANEU, TSH, FT3, ADIFF, FT4, VIDH, CBC, GFR #### [address] [address] #### PTH #### [address] [address] Chloride [Moles/Vol] 101 mmol/L Normal 98-107 [facility] ([place] Comment on above: Performed By: #### L IPID, CMP, ANEU, TSH, FT3, ADIFF, FT4, VIDH, CBC, GFR #### [address] [address] #### PTH #### [place] [address] CO2 [Moles/Vol] 29 mmol/L Normal 23-31 [facility] ([place] Comment on above: Performed By: #### L IPID, CMP, ANEU, TSH, FT3, ADIFF, FT4, VIDH, CBC, GFR #### [address] [address] #### PTH #### [address] [address] Creatinine [Mass/Vol] 1.04 mg/dL High 0.55-1.02 [facility] ([place]) Comment on above: Performed By: #### L IPID, CMP, ANEU, TSH, FT3, ADIFF, FT4, VIDH, CBC, GFR #### [address] [address] #### PTH #### [place] [address] Electrolyte Balance 7.0 mEq/L Normal 4.0-15.0 [facility] ([place]) Comment on above: Performed By: #### L IPID, CMP, ANEU, TSH, FT3, ADIFF, FT4, VIDH, CBC, GFR #### [address] [address] #### PTH #### [address] [address] Globulin 2.6 G/dL Normal [facility] ([place] Comment on above: Performed By: #### L IPID, CMP, ANEU, TSH, FT3, ADIFF, FT4, VIDH, CBC, GFR #### [address] [address] #### PTH #### [address] [address] Glucose [Mass/Vol] 89 mg/dL Normal 80-115 [facility] ([place] Comment on above: Performed By: #### L IPID, CMP, ANEU, TSH, FT3, ADIFF, FT4, VIDH, CBC, GFR #### [address] [address] #### PTH #### [place] [address] Potassium [Moles/Vol] 4.5 mmol/L Normal 3.5-5.1 [facility] ([place] Comment on above: Performed By: #### L IPID, CMP, ANEU, TSH, FT3, ADIFF, FT4, VIDH, CBC, GFR #### [address] [address] #### PTH #### [address] [address] Sodium [Moles/Vol] 137 mmol/L Normal 136-145 [facility] ([place] Comment on above: Performed By: #### L IPID, CMP, ANEU, TSH, FT3, ADIFF, FT4, VIDH, CBC, GFR #### [address] [address] #### PTH #### [address] [address] Total Protein 6.3 G/dL Low 6.4-8.2 [facility] ([place] Comment on above: Performed By: #### L IPID, CMP, ANEU, TSH, FT3, ADIFF, FT4, VIDH, CBC, GFR #### [address] [address] #### PTH #### [place] [address] Urea nitrogen [Mass/Vol] 23 mg/dL High 7-18 [facility] ([place] Comment on above: Performed By: #### L IPID, CMP, ANEU, TSH, FT3, ADIFF, FT4, VIDH, CBC, GFR #### [address] [address] #### PTH #### [place] [address] FT3on 10-05-2023 Free T3 [Mass/Vol] 4.21 pg/mL High 2.30-4.00 [facility] ([place] Comment on above: Performed By: #### L IPID, CMP, ANEU, TSH, FT3, ADIFF, FT4, VIDH, CBC, GFR #### [place] [address] #### PTH #### [place] [address] FT4on 10-05-2023 Free T4 [Mass/Vol] 0.73 ng/dL Low 0.76-1.46 [facility] ([place] Comment on above: Performed By: #### L IPID, CMP, ANEU, TSH, FT3, ADIFF, FT4, VIDH, CBC, GFR #### [place] [address] #### PTH #### [place] [address] LABORATORYOrdered By: SYSTEM SYSTEM on 10-05-2023 25-hydroxyvitamin D3 [Mass/Vol] 80.6 ng/mL Invalid Interpretation Code AO ADM SS Comment on above: Interpretive Data: I nterpretive Values Based on Total 25(OH) Vitamin D: Deficient <20 ng/mL Insufficient 20 - <30 ng/mL Sufficient 30-100 ng/mL Albumin BCP dye [Mass/Vol] 3.7 G/dL Normal 3.4 - 4.8 G/dL AO ADM SS Albumin/Globulin [Mass ratio] 1.4 {ratio} Normal 1.1 - 2.5 ratio AO ADM SS ALP [Catalytic activity/Vol] 41 U/L Normal 40 - 135 U/L AO ADM SS ALT With P-5'-P [Catalytic activity/Vol] 19 U/L Normal 14 - 59 U/L AO ADM SS AST With P-5'-P [Catalytic activity/Vol] 14 U/L Normal 10 - 40 U/L AO ADM SS Basophil, Absolute 0.1 103/mcL Normal 0.0 - 0.2 10^3/mcL AO Workflow SS Basophils/100 WBC (Bld) 2.0 % Normal 0.0 - 2.5 % AO Workflow SS Bilirubin [Mass/Vol] 0.6 mg/dL Normal 0.2 - 1 .0 mg/dL AO ADM SS Comment on above: Interpretive Data: U se of this assay is not recommended for patients undergoing treatment with eltrombopag due to the potential for falsely elevated results. Calcium [Mass/Vol] 9.1 mg/dL Normal 8.4 - 10. 2 mg/dL AO ADM SS Chloride [Moles/Vol] 101 mmol/L Normal 98 - 10 7 mmol/L AO ADM SS CO2 [Moles/Vol] 29 mmol/L Normal 23 - 31 mmol/L AO ADM SS Creatinine [Mass/Vol] 1.04 mg/dL High 0.55 - 1.02 mg/dL AO ADM SS Electrolyte Balance 7.0 mEq/L Normal 4.0 - 15 .0 mEq/L AO ADM SS Eosinophil, Absolute 0.3 103/mcL Normal 0.0 - 0 .4 10^3/mcL AO Workflow SS Eosinophils/100 WBC (Bld) 6.8 % Normal 0.0 - 7.0 % AO Workflow SS Erythrocyte distribution width (RBC) [Ratio] 13.0 % Normal 11.5 - 14.5 % AO Workflow SS Free T3 [Mass/Vol] 4.21 pg/mL High 2.30 - 4. 00 pg/mL AO ADM SS Free T4 [Mass/Vol] 0.73 ng/dL Low 0.76 - 1. 46 ng/dL AO ADM SS GFR/1.73 sq M.predicted among blacks MDRD (S/P/Bld) [Vol rate/Area] 66 ml/min/1.73sqm Invalid Interpretation Code AO Chemistry S Comment on above: Interpretive Data: GFR Population mean for , Non- Americans Ages 20-29 = 116 mL/min/1.73 sq.m. Ages 30-39 = 107 mL/min/1.73 sq.m. Ages 40-49 = 99 mL/min/1.73 sq.m. Ages 50-59 = 93 mL/min/1.73 sq.m. Ages 60-69 = 85 mL/min/1.73 sq.m. Ages 70+ = 75 mL/min/1.73 sq.m. Chronic Kidney Disease: Less than 60 mL/min/1.73 square meters End Stage Renal Disease: Less than 15 mL/min/1.73 square meters GFR/1.73 sq M.predicted among non-blacks MDRD (S/P/Bld) [Vol rate/Area] 54 ml/min/1.73sqm Invalid Interpretation Code AO Chemistry S Comment on above: Interpretive Data: GFR Population mean for , Non- Americans Ages 20-29 = 116 mL/min/1.73 sq.m. Ages 30-39 = 107 mL/min/1.73 sq.m. Ages 40-49 = 99 mL/min/1.73 sq.m. Ages 50-59 = 93 mL/min/1.73 sq.m. Ages 60-69 = 85 mL/min/1.73 sq.m. Ages 70+ = 75 mL/min/1.73 sq.m. Chronic Kidney Disease: Less than 60 mL/min/1.73 square meters End Stage Renal Disease: Less than 15 mL/min/1.73 square meters Globulin 2.6 G/dL Invalid Interpretation Code AO ADM SS Glucose [Mass/Vol] 89 mg/dL Normal 80 - 115 mg/dL AO ADM SS Hematocrit (Bld) [Volume fraction] 39.9 % Normal 37.0 - 47.0 % AO Workflow SS Hemoglobin (Bld) [Mass/Vol] 13.6 G/dL Normal 12.0 - 16.0 G/dL AO Workflow SS Lymphocyte, Absolute 1.8 103/mcL Normal 0.8 - 3 .9 10^3/mcL AO Workflow SS Lymphocytes/100 WBC (Bld) 44.8 % Normal 10.0 - 50.0 % AO Workflow SS MCH (RBC) [Entitic mass] 32.9 pg High 27.0 - 31.2 pg AO Workflow SS MCHC 34.1 G/dL Normal 33.0 - 37.0 G/dL AO Workflow SS MCV (RBC) [Entitic vol] 96.6 fL High 80.0 - 94.0 fL AO Workflow SS Monocyte, Absolute 0.3 103/mcL Normal 0.2 - 1.0 10^3/mcL AO Workflow SS Monocytes/100 WBC (Bld) 7.9 % Normal 1.7 - 13.0 % AO Workflow SS Neutrophil, Absolute 1.5 103/mcL Low 2.9 - 6 .2 10^3/mcL AO Workflow SS Neutrophils/100 WBC (Bld) 38.5 % Normal 37.0 - 80.0 % AO Workflow SS Parathyrin.intact [Mass/Vol] 51.1 pg/mL Normal 18.5 - 88.0 pg/mL AH ADM SS Platelet mean volume (Bld) [Entitic vol] 8.3 fL Normal 7.4 - 10.4 fL AO Workflow SS Platelets (Bld) [#/Vol] 238 103/mcL Normal 130 - 400 10^3/mcL AO Workflow SS Potassium [Moles/Vol] 4.5 mmol/L Normal 3.5 - 5.1 mmol/L AO ADM SS Protein [Mass/Vol] 6.3 G/dL Low 6.4 - 8.2 G/dL AO ADM SS RBC (Bld) [#/Vol] 4.12 106/mcL Low 4.20 - 5.4 0 10^6/mcL AO Workflow SS Sodium [Moles/Vol] 137 mmol/L Normal 136 - 145 mmol/L AO ADM SS TSH Qn 0.37 m[IU]/L Normal 0.36 - 3.74 mcIU/mL AO ADM SS Urea nitrogen [Mass/Vol] 23 mg/dL High 7 - 18 mg/dL AO ADM SS Urea nitrogen/Creatinine [Mass ratio] 22 ratio Normal 7 - 27 ratio AO ADM SS WBC (Bld) [#/Vol] 3.9 103/mcL Low 4.6 - 10.8 10^3/mcL AO Workflow SS LABORATORYOrdered By: Natali Dukes on 10-05-2023 Cholesterol [Mass/Vol] 183 mg/dL Normal 0 - 2 00 mg/dL AO ADM SS Comment on above: Interpretive Data: C holesterol Reference Interval: Less than 200 Desirable 200-239 Borderline high risk 240 and above High risk Cholesterol in HDL [Mass/Vol] 84 mg/dL High 40 - 60 mg/dL AO ADM SS Cholesterol in LDL [Mass/Vol] 89 mg/dL Normal 0 - 130 mg/dL AO ADM SS Triglyceride [Mass/Vol] 48 mg/dL Normal 0 - 150 mg/dL AO ADM SS Comment on above: Interpretive Data: T riglyceride Reference Interval: Less than 150 Normal 150-199 Borderline high risk 200-499 High risk 500 or higher Very high risk LIPIDon 10-05-2023 Cholesterol [Mass/Vol] 183 mg/dL Normal 0-200 [facility] ([place]) Comment on above: Result Comment: Chol esterol Reference Interval: Less than 200 Desirable 200-239 Borderline high risk 240 and above High risk Performed By: #### L IPID, CMP, ANEU, TSH, FT3, ADIFF, FT4, VIDH, CBC, GFR #### [address] [address] #### PTH #### [address] [address] Cholesterol in HDL [Mass/Vol] 84 mg/dL High 40-60 [facility] ([place]) Comment on above: Performed By: #### L IPID, CMP, ANEU, TSH, FT3, ADIFF, FT4, VIDH, CBC, GFR #### [address] [address] #### PTH #### [address] [address] Cholesterol in LDL [Mass/Vol] 89 mg/dL Normal 0-130 [facility] ([place] Comment on above: Performed By: #### L IPID, CMP, ANEU, TSH, FT3, ADIFF, FT4, VIDH, CBC, GFR #### [address] [address] #### PTH #### [address] [address] Triglyceride [Mass/Vol] 48 mg/dL Normal 0-150 [facility] ([place]) Comment on above: Result Comment: Trig lyceride Reference Interval: Less than 150 Normal 150-199 Borderline high risk 200-499 High risk 500 or higher Very high risk Performed By: #### L IPID, CMP, ANEU, TSH, FT3, ADIFF, FT4, VIDH, CBC, GFR #### [address] [address] #### PTH #### [place] [address] PTHon 10-05-2023 PTH, Intact 51.1 pg/mL Normal 18.5-88.0 [facility] ([place] Comment on above: Performed By: #### L IPID, CMP, ANEU, TSH, FT3, ADIFF, FT4, VIDH, CBC, GFR #### [address] [address] #### PTH #### [place] [address] TSHon 10-05-2023 TSH Qn 0.37 m[IU]/L Normal 0.36-3.74 [facility] ([place] Comment on above: Performed By: #### L IPID, CMP, ANEU, TSH, FT3, ADIFF, FT4, VIDH, CBC, GFR #### [address] [address] #### PTH #### [place] [address] VIDHon 10-05-2023 Vit. D 25-Hydroxy 80.6 ng/mL Normal [facility] ([place] Comment on above: Result Comment: Inte rpretive Values Based on Total 25(OH) Vitamin D: Deficient <20 ng/mL Insufficient 20 - <30 ng/mL Sufficient 30-100 ng/mL Performed By: #### L IPID, CMP, ANEU, TSH, FT3, ADIFF, FT4, VIDH, CBC, GFR #### [place] [address] #### PTH #### [place] [address] .GFRon 05-03-2023 GFR Non- 51 ml/min/1.73sqm Normal [facility] ([place] Comment on above: Result Comment: GFR Population mean for , Non- Americans Ages 20-29 = 116 mL/min/1.73 sq.m. Ages 30-39 = 107 mL/min/1.73 sq.m. Ages 40-49 = 99 mL/min/1.73 sq.m. Ages 50-59 = 93 mL/min/1.73 sq.m. Ages 60-69 = 85 mL/min/1.73 sq.m. Ages 70+ = 75 mL/min/1.73 sq.m. Chronic Kidney Disease: Less than 60 mL/min/1.73 square meters End Stage Renal Disease: Less than 15 mL/min/1.73 square meters Performed By: #### L IPID, CMP, ANEU, TSH, FT3, ADIFF, FT4, VIDH, CBC, GFR #### [address] [address] #### PTH #### [address] [address] GFR 61 ml/min/1.73sqm Normal [facility] ([place] Comment on above: Result Comment: GFR Population mean for , Non- Americans Ages 20-29 = 116 mL/min/1.73 sq.m. Ages 30-39 = 107 mL/min/1.73 sq.m. Ages 40-49 = 99 mL/min/1.73 sq.m. Ages 50-59 = 93 mL/min/1.73 sq.m. Ages 60-69 = 85 mL/min/1.73 sq.m. Ages 70+ = 75 mL/min/1.73 sq.m. Chronic Kidney Disease: Less than 60 mL/min/1.73 square meters End Stage Renal Disease: Less than 15 mL/min/1.73 square meters Performed By: #### L IPID, CMP, ANEU, TSH, FT3, ADIFF, FT4, VIDH, CBC, GFR #### [address] [address] #### PTH #### [place] [address] CMPon 05-03-2023 Albumin Level 3.7 G/dL Normal 3.4-4.8 [facility] ([place] Comment on above: Performed By: #### L IPID, CMP, ANEU, TSH, FT3, ADIFF, FT4, VIDH, CBC, GFR #### [address] [address] #### PTH #### [place] [address] Albumin/Globulin [Mass ratio] 1.3 {ratio} Normal 1.1-2.5 [facility] ([place] Comment on above: Performed By: #### L IPID, CMP, ANEU, TSH, FT3, ADIFF, FT4, VIDH, CBC, GFR #### [address] [address] #### PTH #### [place] [address] ALP [Catalytic activity/Vol] 41 U/L Normal 40-135 [facility] ([place] Comment on above: Performed By: #### L IPID, CMP, ANEU, TSH, FT3, ADIFF, FT4, VIDH, CBC, GFR #### [address] [address] #### PTH #### [place] [address] ALT [Catalytic activity/Vol] 19 U/L Normal 14-59 [facility] ([place] Comment on above: Performed By: #### L IPID, CMP, ANEU, TSH, FT3, ADIFF, FT4, VIDH, CBC, GFR #### [address] [address] #### PTH #### [place] [address] AST [Catalytic activity/Vol] 14 U/L Normal 10-40 [facility] ([place] Comment on above: Performed By: #### L IPID, CMP, ANEU, TSH, FT3, ADIFF, FT4, VIDH, CBC, GFR #### [address] [address] #### PTH #### [address] [address] Bili Total 0.3 mg/dL Normal 0.2-1.0 [facility] ([place] Comment on above: Result Comment: Use of this assay is not recommended for patients undergoing treatment with eltrombopag due to the potential for falsely elevated results. Performed By: #### L IPID, CMP, ANEU, TSH, FT3, ADIFF, FT4, VIDH, CBC, GFR #### [address] [address] #### PTH #### [address] [address] BUN/Creatinine Ratio 22 ratio Normal 7-27 [facility] ([place]) Comment on above: Performed By: #### L IPID, CMP, ANEU, TSH, FT3, ADIFF, FT4, VIDH, CBC, GFR #### [place] [address] #### PTH #### [address] [address] Calcium [Mass/Vol] 8.9 mg/dL Normal 8.4-10.2 [facility] ([place]) Comment on above: Performed By: #### L IPID, CMP, ANEU, TSH, FT3, ADIFF, FT4, VIDH, CBC, GFR #### [place] [address] #### PTH #### [address] [address] Chloride [Moles/Vol] 101 mmol/L Normal 98-107 [facility] ([place] Comment on above: Performed By: #### L IPID, CMP, ANEU, TSH, FT3, ADIFF, FT4, VIDH, CBC, GFR #### [address] [address] #### PTH #### [address] [address] CO2 [Moles/Vol] 32 mmol/L High 23-31 [facility] ([place] Comment on above: Performed By: #### L IPID, CMP, ANEU, TSH, FT3, ADIFF, FT4, VIDH, CBC, GFR #### [address] [address] #### PTH #### [place] [address] Creatinine [Mass/Vol] 1.10 mg/dL High 0.55-1.02 [facility] ([place]) Comment on above: Performed By: #### L IPID, CMP, ANEU, TSH, FT3, ADIFF, FT4, VIDH, CBC, GFR #### [place] [address] #### PTH #### [place] [address] Electrolyte Balance 7.0 mEq/L Normal 4.0-15.0 [facility] ([place]) Comment on above: Performed By: #### L IPID, CMP, ANEU, TSH, FT3, ADIFF, FT4, VIDH, CBC, GFR #### [place] [address] #### PTH #### [place] [address] Globulin 2.9 G/dL Normal [facility] ([place] Comment on above: Performed By: #### L IPID, CMP, ANEU, TSH, FT3, ADIFF, FT4, VIDH, CBC, GFR #### [place] [address] #### PTH #### [place] [address] Glucose [Mass/Vol] 77 mg/dL Low 80-115 [facility] ([place] Comment on above: Performed By: #### L IPID, CMP, ANEU, TSH, FT3, ADIFF, FT4, VIDH, CBC, GFR #### [place] [address] #### PTH #### [place] [address] Potassium [Moles/Vol] 4.7 mmol/L Normal 3.5-5.1 [facility] ([place] Comment on above: Performed By: #### L IPID, CMP, ANEU, TSH, FT3, ADIFF, FT4, VIDH, CBC, GFR #### [address] [address] #### PTH #### [place] [address] Sodium [Moles/Vol] 140 mmol/L Normal 136-145 [facility] ([place] Comment on above: Performed By: #### L IPID, CMP, ANEU, TSH, FT3, ADIFF, FT4, VIDH, CBC, GFR #### [address] [address] #### PTH #### [place] [address] Total Protein 6.6 G/dL Normal 6.4-8.2 [facility] ([place] Comment on above: Performed By: #### L IPID, CMP, ANEU, TSH, FT3, ADIFF, FT4, VIDH, CBC, GFR #### [place] [address] #### PTH #### [place] [address] Urea nitrogen [Mass/Vol] 24 mg/dL High 7-18 [facility] ([place] Comment on above: Performed By: #### L IPID, CMP, ANEU, TSH, FT3, ADIFF, FT4, VIDH, CBC, GFR #### [place] [address] #### PTH #### [place] [address] FT3on 05-03-2023 Free T3 [Mass/Vol] 2.48 pg/mL Normal 2.30-4.00 [facility] ([place] Comment on above: Performed By: #### L IPID, CMP, ANEU, TSH, FT3, ADIFF, FT4, VIDH, CBC, GFR #### [address] [address] #### PTH #### [address] [address] FT4on 05-03-2023 Free T4 [Mass/Vol] 0.73 ng/dL Low 0.76-1.46 [facility] ([place] Comment on above: Performed By: #### L IPID, CMP, ANEU, TSH, FT3, ADIFF, FT4, VIDH, CBC, GFR #### [address] [address] #### PTH #### [address] [address] TSHon 05-03-2023 TSH Qn 2.71 m[IU]/L Normal 0.36-3.74 [facility] ([place] Comment on above: Performed By: #### L IPID, CMP, ANEU, TSH, FT3, ADIFF, FT4, VIDH, CBC, GFR #### [address] [address] #### PTH #### [address] [address] LABORATORYOrdered By: SYSTEM SYSTEM on 10-24-2022 Basophil, Absolute 0.1 103/mcL Invalid Interpretation Code 0.0 - 0.2 10^3/mcL AO Workflow SS Basophils/100 WBC (Bld) 0.9 % Invalid Interpretation Code 0.0 - 2.5 % AO Workflow SS Eosinophil, Absolute 0.1 103/mcL Invalid Interpretation Code 0.0 - 0.4 10^3/mcL AO Workflow SS Eosinophils/100 WBC (Bld) 1.2 % Invalid Interpretation Code 0.0 - 7.0 % AO Workflow SS Erythrocyte distribution width (RBC) [Ratio] 13.2 % Invalid Interpretation Code 11.5 - 14.5 % AO Workflow SS Free T3 [Mass/Vol] 2.61 pg/mL Invalid Interpretation Code 2.30 - 4.00 pg/mL AO ADM SS Free T4 [Mass/Vol] 0.83 ng/dL Invalid Interpretation Code 0.76 - 1.46 ng/dL AO ADM SS Hematocrit (Bld) [Volume fraction] 37.4 % Invalid Interpretation Code 37.0 - 47.0 % AO Workflow SS Hemoglobin (Bld) [Mass/Vol] 12.8 G/dL Invalid Interpretation Code 12.0 - 16.0 G/dL AO Workflow SS Lymphocyte, Absolute 2.3 103/mcL Invalid Interpretation Code 0.8 - 3.9 10^3/mcL AO Workflow SS Lymphocytes/100 WBC (Bld) 32.3 % Invalid Interpretation Code 10.0 - 50.0 % AO Workflow SS MCH (RBC) [Entitic mass] 33.3 pg Invalid Interpretation Code 27.0 - 31.2 pg AO Workflow SS MCHC 34.3 G/dL Invalid Interpretation Code 33.0 - 37.0 G/dL AO Workflow SS MCV (RBC) [Entitic vol] 97.0 fL Invalid Interpretation Code 80.0 - 94.0 fL AO Workflow SS Monocyte, Absolute 0.6 103/mcL Invalid Interpretation Code 0.2 - 1.0 10^3/mcL AO Workflow SS Monocytes/100 WBC (Bld) 8.6 % Invalid Interpretation Code 1.7 - 13.0 % AO Workflow SS Neutrophil, Absolute 4.1 103/mcL Invalid Interpretation Code 2.9 - 6.2 10^3/mcL AO Workflow SS Neutrophils/100 WBC (Bld) 57.0 % Invalid Interpretation Code 37.0 - 80.0 % AO Workflow SS Platelet mean volume (Bld) [Entitic vol] 7.9 fL Invalid Interpretation Code 7.4 - 10.4 fL AO Workflow SS Platelets (Bld) [#/Vol] 240 103/mcL Invalid Interpretation Code 130 - 400 10^3/mcL AO Workflow SS RBC (Bld) [#/Vol] 3.86 106/mcL Invalid Interpretation Code 4.20 - 5.40 10^6/mcL AO Workflow SS TSH Qn 0.34 m[IU]/L Invalid Interpretation Code 0.36 - 3.74 mcIU/mL AO ADM SS WBC (Bld) [#/Vol] 7.1 103/mcL Invalid Interpretation Code 4.6 - 10.8 10^3/mcL AO Workflow SS LABORATORYOrdered By: SYSTEM SYSTEM on 09-08-2022 25-hydroxyvitamin D3 [Mass/Vol] 108.6 ng/mL Invalid Interpretation Code AO ADM SS Albumin BCP dye [Mass/Vol] 4.1 G/dL Invalid Interpretation Code 3.5 - 5.0 G/dL AO ADM SS Albumin/Globulin [Mass ratio] 1.9 {ratio} Invalid Interpretation Code 1.1 - 2.5 ratio AO ADM SS ALP [Catalytic activity/Vol] 43 U/L Invalid Interpretation Code 40 - 135 U/L AO ADM SS ALT With P-5'-P [Catalytic activity/Vol] 21 U/L Invalid Interpretation Code 14 - 59 U/L AO ADM SS AST With P-5'-P [Catalytic activity/Vol] 17 U/L Invalid Interpretation Code 10 - 40 U/L AO ADM SS Bilirubin [Mass/Vol] 0.7 mg/dL Invalid Interpretation Code 0.2 - 1.0 mg/dL AO ADM SS Calcium [Mass/Vol] 9.1 mg/dL Invalid Interpretation Code 8.4 - 10.2 mg/dL AO ADM SS Chloride [Moles/Vol] 101 mmol/L Invalid Interpretation Code 98 - 107 mmol/L AO ADM SS CO2 [Moles/Vol] 28 mmol/L Invalid Interpretation Code 22 - 29 mmol/L AO ADM SS Creatinine [Mass/Vol] 1.07 mg/dL Invalid Interpretation Code 0.55 - 1.02 mg/dL AO ADM SS Electrolyte Balance 10.0 mEq/L Invalid Interpretation Code 4.0 - 15.0 mEq/L AO ADM SS Free T3 [Mass/Vol] 3.77 pg/mL Invalid Interpretation Code 2.30 - 4.00 pg/mL AO ADM SS Free T4 [Mass/Vol] 0.90 ng/dL Invalid Interpretation Code 0.76 - 1.46 ng/dL AO ADM SS GFR/1.73 sq M.predicted among blacks MDRD (S/P/Bld) [Vol rate/Area] 64 ml/min/1.73sqm Invalid Interpretation Code AO Chemistry S GFR/1.73 sq M.predicted among non-blacks MDRD (S/P/Bld) [Vol rate/Area] 52 ml/min/1.73sqm Invalid Interpretation Code AO Chemistry S Globulin 2.2 G/dL Invalid Interpretation Code AO ADM SS Glucose [Mass/Vol] 79 mg/dL Invalid Interpretation Code 70 - 105 mg/dL AO ADM SS Parathyrin.intact [Mass/Vol] 52.9 pg/mL Invalid Interpretation Code 18.5 - 88.0 pg/mL AH ADM SS Potassium [Moles/Vol] 4.6 mmol/L Invalid Interpretation Code 3.5 - 5.1 mmol/L AO ADM SS Protein [Mass/Vol] 6.3 G/dL Invalid Interpretation Code 6.4 - 8.2 G/dL AO ADM SS Sodium [Moles/Vol] 139 mmol/L Invalid Interpretation Code 136 - 145 mmol/L AO ADM SS TSH Qn 0.53 m[IU]/L Invalid Interpretation Code 0.36 - 3.74 mcIU/mL AO ADM SS Urea nitrogen [Mass/Vol] 15 mg/dL Invalid Interpretation Code 7 - 18 mg/dL AO ADM SS Urea nitrogen/Creatinine [Mass ratio] 14 ratio Invalid Interpretation Code 7 - 27 ratio AO ADM SS LABORATORYOrdered By: Jessie Lomeli on 09-08-2022 Basophil, Absolute 0.1 103/mcL Invalid Interpretation Code 0.0 - 0.2 10^3/mcL AO Workflow SS Basophils/100 WBC (Bld) 1.3 % Invalid Interpretation Code 0.0 - 2.5 % AO Workflow SS Eosinophil, Absolute 0.1 103/mcL Invalid Interpretation Code 0.0 - 0.4 10^3/mcL AO Workflow SS Eosinophils/100 WBC (Bld) 2.7 % Invalid Interpretation Code 0.0 - 7.0 % AO Workflow SS Erythrocyte distribution width (RBC) [Ratio] 13.3 % Invalid Interpretation Code 11.5 - 14.5 % AO Workflow SS Hematocrit (Bld) [Volume fraction] 41.5 % Invalid Interpretation Code 37.0 - 47.0 % AO Workflow SS Hemoglobin (Bld) [Mass/Vol] 14.3 G/dL Invalid Interpretation Code 12.0 - 16.0 G/dL AO Workflow SS Lymphocyte, Absolute 1.3 103/mcL Invalid Interpretation Code 0.8 - 3.9 10^3/mcL AO Workflow SS Lymphocytes/100 WBC (Bld) 24.0 % Invalid Interpretation Code 10.0 - 50.0 % AO Workflow SS MCH (RBC) [Entitic mass] 33.1 pg Invalid Interpretation Code 27.0 - 31.2 pg AO Workflow SS MCHC 34.4 G/dL Invalid Interpretation Code 33.0 - 37.0 G/dL AO Workflow SS MCV (RBC) [Entitic vol] 96.0 fL Invalid Interpretation Code 80.0 - 94.0 fL AO Workflow SS Monocyte, Absolute 0.5 103/mcL Invalid Interpretation Code 0.2 - 1.0 10^3/mcL AO Workflow SS Monocytes/100 WBC (Bld) 9.3 % Invalid Interpretation Code 1.7 - 13.0 % AO Workflow SS Neutrophil, Absolute 3.3 103/mcL Invalid Interpretation Code 2.9 - 6.2 10^3/mcL AO Workflow SS Neutrophils/100 WBC (Bld) 62.7 % Invalid Interpretation Code 37.0 - 80.0 % AO Workflow SS Platelet mean volume (Bld) [Entitic vol] 8.1 fL Invalid Interpretation Code 7.4 - 10.4 fL AO Workflow SS Platelets (Bld) [#/Vol] 254 103/mcL Invalid Interpretation Code 130 - 400 10^3/mcL AO Workflow SS RBC (Bld) [#/Vol] 4.33 106/mcL Invalid Interpretation Code 4.20 - 5.40 10^6/mcL AO Workflow SS WBC (Bld) [#/Vol] 5.3 103/mcL Invalid Interpretation Code 4.6 - 10.8 10^3/mcL AO Workflow SS LABORATORYOrdered By: SYSTEM SYSTEM on 03-24-2022 Albumin BCP dye [Mass/Vol] 3.9 G/dL Invalid Interpretation Code 3.5 - 5.0 G/dL AO ADM SS Albumin/Globulin [Mass ratio] 1.4 {ratio} Invalid Interpretation Code 1.1 - 2.5 ratio AO ADM SS ALP [Catalytic activity/Vol] 44 U/L Invalid Interpretation Code 40 - 135 U/L AO ADM SS ALT With P-5'-P [Catalytic activity/Vol] 22 U/L Invalid Interpretation Code 14 - 59 U/L AO ADM SS AST With P-5'-P [Catalytic activity/Vol] 20 U/L Invalid Interpretation Code 10 - 40 U/L AO ADM SS Bilirubin [Mass/Vol] 0.6 mg/dL Invalid Interpretation Code 0.2 - 1.0 mg/dL AO ADM SS Calcium [Mass/Vol] 9.4 mg/dL Invalid Interpretation Code 8.4 - 10.2 mg/dL AO ADM SS Chloride [Moles/Vol] 102 mmol/L Invalid Interpretation Code 98 - 107 mmol/L AO ADM SS CO2 [Moles/Vol] 30 mmol/L Invalid Interpretation Code 22 - 29 mmol/L AO ADM SS Creatinine [Mass/Vol] 1.18 mg/dL Invalid Interpretation Code 0.55 - 1.02 mg/dL AO ADM SS Electrolyte Balance 7.0 mEq/L Invalid Interpretation Code 4.0 - 15.0 mEq/L AO ADM SS Free T3 [Mass/Vol] 4.33 pg/mL Invalid Interpretation Code 2.30 - 4.00 pg/mL AO ADM SS Free T4 [Mass/Vol] 1.09 ng/dL Invalid Interpretation Code 0.76 - 1.46 ng/dL AO ADM SS GFR 57 ml/min/1.73sqm Invalid Interpretation Code AO Chemistry S GFR Non- 47 ml/min/1.73sqm Invalid Interpretation Code AO Chemistry S Globulin 2.7 G/dL Invalid Interpretation Code AO ADM SS Glucose [Mass/Vol] 64 mg/dL Invalid Interpretation Code 70 - 105 mg/dL AO ADM SS Potassium [Moles/Vol] 4.5 mmol/L Invalid Interpretation Code 3.5 - 5.1 mmol/L AO ADM SS Protein [Mass/Vol] 6.6 G/dL Invalid Interpretation Code 6.4 - 8.2 G/dL AO ADM SS Sodium [Moles/Vol] 139 mmol/L Invalid Interpretation Code 136 - 145 mmol/L AO ADM SS Thyroglobulin Ab IA Qn unit/mL Invalid Interpretation Code 15 - 60 unit/mL AH ADM SS TPO Ab IA Qn unit/mL Invalid Interpretation Code 0 - 60 unit/mL AH ADM SS TSH Qn 0.18 m[IU]/L Invalid Interpretation Code 0.36 - 3.74 mcIU/mL AO ADM SS Urea nitrogen [Mass/Vol] 25 mg/dL Invalid Interpretation Code 7 - 18 mg/dL AO ADM SS Urea nitrogen/Creatinine [Mass ratio] 21 ratio Invalid Interpretation Code 7 - 27 ratio AO ADM SS Vit. D 25-Hydroxy 148.6 ng/mL Invalid Interpretation Code AO ADM SS LABORATORYOrdered By: Cheyenne Trejo on 03-24-2022 Cholesterol [Mass/Vol] 204 mg/dL Invalid Interpretation Code 0 - 200 mg/dL AO ADM SS Cholesterol in HDL [Mass/Vol] 95 mg/dL Invalid Interpretation Code 40 - 60 mg/dL AO ADM SS Cholesterol in LDL [Mass/Vol] 102 mg/dL Invalid Interpretation Code 0 - 130 mg/dL AO ADM SS Triglyceride [Mass/Vol] 33 mg/dL Invalid Interpretation Code 0 - 150 mg/dL AO ADM SS CNOVon 09-22-2021 CNOV Office Visit ([facility] ) ЮЛИЯ SEQUEIRA ([id number]) 1960 F Date Time Provider Department 09/22/21 9:40 AM [facility] visit today, we recorded the following information about you: Temperature Pulse Respiration Blood pressure 98.7 degrees 61/minute 16/minute 106/65 Weight 62.1 kg Bennett Carpio MD 09/22/2021 11:28 AM Signed Юлия Sequeira is a 60 year old FEMALE who presents with Cough (chest discomfort/ tightness--4 days) Coughing 4 days , chest hurts when cough Fever, SOB PAST MEDICAL HISTORY Diagnosis Date - Elevated serum creatinine 1.21 - Hormone replacement therapy (HRT) - Malignant neoplasm of thyroid gland (HCC) radiation - meopause hx of ablation - Other abnormal Papanicolaou smear of cervix and cervical 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) 2000 cryo/other facility - Renal insufficiency 2016 ACTIVE PROBLEM LIST Malignant Neoplasm of Thyroid Gland (Hcc) Postablative Hypothyroidism Thyroid Cancer (Hcc) Depression Headache Disorder Post-Menopause On Hrt (Hormone Replacement Therapy) Vitamin D Deficiency Encounter for Screening for Malignant Neoplasm of Colon meopause hx of ablation Elevated Serum Creatinine Hormone Replacement Therapy (Hrt) Current Outpatient Medications Medication Sig Dispense Refill - levothyroxine (SYNTHROID) 100 mcg tablet Dose : 100 mcg = 1 tab(s), Oral, qDay, # 90 tab(s), 3 Refill(s), Pharmacy: [facility], 167.6, cm, 09/08/20 15:44:00 EDT, Height, kg, 09/08/20 15:44:00 EDT, Dosing Weight - [id number] EG-CAPRYL ORAL Take by mouth. - B6/folic/B12/coffee/p hosphatid (NEURIVA PLUS ORAL) Take by mouth. gummy - testosterone in cream base (CPD) Apply 1 g to affected area once daily. Comments for compounding pharmacy: Testosterone cream 25MG/2.5Gm 1 Each 1 - progesterone micronized (PROMETRIUM) 100 mg capsule Take 1 capsule by mouth once daily. 90 capsule 3 - citalopram (CELEXA) 20 mg tablet Take 1 tablet by mouth once daily. 90 tablet 3 - estradiol (ESTRACE) 1 mg tablet Take 1 tablet by mouth once daily. 90 tablet 3 - liothyronine (CYTOMEL) 5 mcg tablet Take 1 tablet by mouth once daily. 90 tablet 3 - calcium carb,gluc/mag ox,gluc (CALCIUM MAGNESIUM ORAL) Take by mouth. - COMPOUNDED PRESCRIPTION Testosterone 25MG/2.5 GM Cream Apply 1 Gram (4 Clicks) Topically Every Day As Directed 1 Tube 2 - levothyroxine (SYNTHROID) 88 mcg tablet Take 1 tablet by mouth once daily. (Patient not taking: Reported on 09/22/2021 ) 90 tablet 3 No current facility-administered medications for this visit. Social History Tobacco Use - Smoking status: Never Smoker - Smokeless tobacco: Never Used Vaping Use - Vaping Use: Never used Substance Use Topics - Alcohol use: Not Currently - Drug use: No Alcohol Use: Not Currently Tobacco Use: Never FAMILY HISTORY Problem Relation Age of Onset - Diabetes Paternal Grandmother - other (goiter) Paternal Grandmother great grandmother Review of Systems Constitutional: Positive for fever and malaise/fatigue. Respiratory: Positive for cough. Chest hurts on coughing Cardiovascular: Negative. Gastrointestinal: Negative. BP 106/65 Pulse 61 Temp 98.7 Resp 16 Wt 137 lb (62.1kg) SpO2 95% LMP 02/11/2006 Physical Exam Vitals reviewed. Constitutional: Appearance: Normal appearance. HENT: Nose: Nose normal. Mouth/Throat: Mouth: Mucous membranes are moist. Pharynx: Oropharynx is clear. Cardiovascular: Rate and Rhythm: Normal rate and regular rhythm. Pulmonary: Effort: Pulmonary effort is normal. No respiratory distress. Breath sounds: Rhonchi present. Neurological: Mental Status: She is alert. ASSESSMENT/PLAN: 1. Acute cough - ICD9: 786.2, ICD10: R05.1 (primary diagnosis) - XR CHEST 2V FRONTAL/LAT 2. Acute bronchitis, unspecified organism - ICD9: 466.0, ICD10: J20.9 - AZITHROMYCIN 250 MG TABLET - ALBUTEROL SULFATE HFA 90 MCG/ACTUATION AEROSOL INHALER - METHYLPREDNISOLONE 4 MG TABLETS IN A DOSE PACK MD Bennett Sotomayor MD 09/22/2021 11:28 AM Signed Fluids, f/u PCP Recheck if any change Explained details To ER if get worse OTC med as needed Referring Provider: SELF [[id number]] Allergies As of Date: 09/22/2021 (No Known Allergies) Date Reviewed: 09/22/2021 Reviewed by: Hanna Chen LPN - Fully Assessed Reason for Visit: Cough [28] Cmt: chest discomfort/ tightness--4 days Primary Visit Diagnosis:Acute cough [R05.1] Other Visit Diagnosis:Acute bronchitis, unspecified organism [J20.9] Order(s):XR CHEST 2V FRONTAL/LAT [[id number]] Order #: [id number] FUTURE azithromycin (ZITHROMAX Z-SHELLEY) 250 mg tablet2 tablets by mouth first day then 1 tablet the next 4 daysDisp: 6 tabletRfl: 0 albuterol HFA (PROVENTIL HFA, VENTOLIN HFA) 90 mcg/actuation inhalerInhale 2 Puffs as instructed every 4 hours as needed for wheezing/shortness of (more content not included)... Normal [facility] No Panel Informationon 09-22 [facility] XR CHEST 2V FRONTAL/LATon XR CHEST 2V FRONTAL/LAT * * *Final Repor t* * * DATE OF EXAM: Sep 22 2021 11:34AM RMX [id number] - XR CHEST 2V FRONTAL/LAT / PROCEDURE REASON: Acute cough * * * * Physician Interpretation * * * * EXAMINATION: CHEST RADIOGRAPH (2 VIEW FRONTAL and LATERAL) CLINICAL HISTORY: Acute cough MQ: [id number] EXAM DATE/TIME: 09/22/2021 11:34 AM COMPARISON: Prior studies are not available. RESULT: Lines, tubes, and devices: None. Lungs and pleura: The costophrenic angles are clear. There are no acute infiltrates or congestion. There is no pneumothorax. There is a calcified granuloma in the lingula. Cardiomediastinal silhouette: The heart is normal in size. The aorta is tortuous. Bones and soft tissues: There are no acute osseous abnormalities. IMPRESSION: No acute abnormalities. Skein Bleacher: ROBINA Transcribe Date/Time: Sep 22 2021 12:12P Dictated by : DONNA GOMEZ MD This examination was interpreted and the report reviewed and electronically signed by: DONNA GOMEZ MD on Sep 22 2021 12:13PM EST [id number] N [facility] CBC W Auto Differential pane l (Bld)on 09-14-2021 Abs Immature Gran <0.03 <0.10 k/uL [facility] Basophils (Bld) [#/Vol] 0.06 10*3/uL <0.11 k/uL [facility] Basophils/100 WBC (Bld) 1.1 % C [facility] Differential cell count method Nom (Bld) Auto [facility] Eosinophils (Bld) [#/Vol] 0.13 10*3/uL <0.46 k/uL [facility] Eosinophils/100 WBC (Bld) 2.3 % [facility] Erythrocyte distribution width (RBC) [Ratio] 12.9 % 11.5 - 15.0 % [facility] Hematocrit (Bld) [Volume fraction] 38.2 % 36.0 - 46.0 % [facility] Hemoglobin (Bld) [Mass/Vol] 13.0 g/dL 11.5 - 15.5 g/dL [facility] Immature Gran % 0.4 % [facility] Lymphocytes (Bld) [#/Vol] 2.37 10*3/uL 1.00 - 4.00 k/uL [facility] Lymphocytes/100 WBC (Bld) 42.8 % [facility] MCH (RBC) [Entitic mass] 32.8 pg 26.0 - 34.0 pg [facility] MCHC (RBC) [Mass/Vol] 34.0 g/dL 30.5 - 36.0 g/dL [facility] MCV (RBC) [Entitic vol] 96.5 fL 80.0 - 100.0 fL [facility] Monocytes (Bld) [#/Vol] 0.46 10*3/uL <0.87 k/uL [facility] Monocytes/100 WBC (Bld) 8.3 % C [facility] Neutrophils (Bld) [#/Vol] 2.50 10*3/uL 1.45 - 7.50 k/uL [facility] Neutrophils/100 WBC (Bld) 45.1 % [facility] Nucleated RBC (Bld) [#/Vol] 10*3/uL <0.01 k/uL [facility] Nucleated RBC/100 WBC (Bld) [Ratio] 0.0 /100 WBC [facility] Platelet mean volume (Bld) [Entitic vol] 9.7 fL 9.0 - 12.7 fL [facility] Platelets (Bld) [#/Vol] 221 10*3/uL 150 - 400 k/uL [facility] RBC (Bld) [#/Vol] 3.96 10*6/uL 3.90 - 5.2 0 m/uL [facility] WBC (Bld) [#/Vol] 5.54 10*3/uL 3.70 - 11. 00 k/uL [facility] Comprehensive metabolic 2000 panelon 09-14-2021 Albumin [Mass/Vol] 4.2 g/dL 3.9 - 4.9 g/dL [facility] ALP [Catalytic activity/Vol] 43 U/L 34 - 123 U/L [facility] ALT [Catalytic activity/Vol] 11 U/L 7 - 38 U/L [facility] Anion gap [Moles/Vol] 11 mmol/L 9 - 18 mmol/L [facility] AST [Catalytic activity/Vol] 19 U/L 13 - 35 U/L [facility] Bilirubin [Mass/Vol] 0.3 mg/dL 0.2 - 1 .3 mg/dL [facility] Calcium [Mass/Vol] 8.9 mg/dL 8.5 - 10. 2 mg/dL [facility] Chloride [Moles/Vol] 99 mmol/L 97 - 10 5 mmol/L [facility] CO2 [Moles/Vol] 26 mmol/L 22 - 30 mmol/L [facility] Creatinine [Mass/Vol] 1.13 mg/dL High 0.58 - 0.96 mg/dL [facility] Estimated Glomerular Filtration Rate 57 mL/min/1.73m Low >=60 mL/min/1.73m [facility] Glucose [Mass/Vol] 74 mg/dL 74 - 99 mg/dL [facility] Potassium [Moles/Vol] 4.1 mmol/L 3.7 - 5.1 mmol/L [facility] Protein [Mass/Vol] 6.1 g/dL Low 6.3 - 8.0 g/dL [facility] Sodium [Moles/Vol] 136 mmol/L 136 - 144 mmol/L [facility] Urea nitrogen [Mass/Vol] 34 mg/dL High 7 - 21 mg/dL [facility] Vital Signs Date Time Vital Sign Value Performing Clinician Facility 05-28-2024 16:02-0400 Body height 167.64 cm Daja Dozier [employer] Work Phone: [facility] 05-28-2024 16:02-0400 Body mass index (BMI) [Ratio] 22.6 kg/m2 Daja Dozier [employer] Work Phone: [facility] 05-28-2024 16:02-0400 Body temperature 98 [degF] Daja Dozier [employer] Work Phone: [facility] 05-28-2024 16:02-0400 Body weight 63.58 kg Daja Dozier [employer] Work Phone: [facility] 05-28-2024 16:02-0400 Diastolic blood pressure 82 mm[Hg] Daja Dozier [employer] Work Phone: [facility] 05-28-2024 16:02-0400 Heart rate 64 /min Daja Dozier [employer] Work Phone: [facility] 05-28-2024 16:02-0400 Respiratory rate 16 /min Daja Dozier [employer] Work Phone: [facility] 05-28-2024 16:02-0400 SaO2% (BldA) [Mass fraction] 98 % Daja Dozier [employer] Work Phone: [facility] 05-28-2024 16:02-0400 Systolic blood pressure 127 mm[Hg] Daja Dozier [employer] Work Phone: [facility] 02-13-2024 08:20-0500 Diastolic Blood Pressure Non-Invasive 75 mm[Hg] CLAUDIA SCHNEIDER DO [facility] 02-13-2024 08:20-0500 Heart rate 66 /min CLAUDIA LEXY DO [facility] 02-13-2024 08:20-0500 Respiratory rate 17 /min CLAUDIA LEXY DO [facility] 02-13-2024 08:20-0500 Systolic Blood Pressure Non-Invasive 113 mm[Hg] CLAUDIA LEXY DO [facility] 02-13-2024 08:12-0500 Diastolic Blood Pressure Non-Invasive 60 mm[Hg] CLAUDIA LEXY DO [facility] 02-13-2024 08:12-0500 Heart rate 69 /min CLAUDIA LEXY DO [facility] 02-13-2024 08:12-0500 Respiratory rate 17 /min CLAUDIA LEXY DO [facility] 02-13-2024 08:12-0500 Systolic Blood Pressure Non-Invasive 96 mm[Hg] CLAUDIA LEXY DO [facility] 02-13-2024 08:07-0500 Diastolic Blood Pressure Non-Invasive 61 mm[Hg] CLAUDIA LEXY DO [facility] 02-13-2024 08:07-0500 Heart rate 71 /min CLAUDIA LEXY DO [facility] 02-13-2024 08:07-0500 Respiratory rate 15 /min CLAUDIA LEXY DO [facility] 02-13-2024 08:07-0500 Systolic Blood Pressure Non-Invasive 95 mm[Hg] CLAUDIA LEXY DO [facility] 02-13-2024 08:02-0500 Body temperature 97.88 [degF] CLAUDIA LEXY DO [facility] 02-13-2024 07:55-0500 Respiratory Rate - Anes 21 br/min CLAUDIA LEXY DO [facility] 02-13-2024 07:50-0500 Respiratory Rate - Anes 0 br/min CLAUDIA LEXY DO [facility] 02-13-2024 07:19-0500 Body height 166.5 cm CLAUDIA LEXY DO [facility] 02-13-2024 07:19-0500 Body weight 66 kg CLAUDIA LEXY DO [facility] 02-13-2024 07:19-0500 Body weight 23.81 kg/m2 CLAUDIA LEXY DO [facility] 02-13-2024 07:16-0500 Body height 166.5 cm CLAUDIA LEXY DO [facility] 02-13-2024 07:16-0500 Body temperature 97.34 [degF] CLAUDIA LEXY DO [facility] 02-13-2024 07:16-0500 Body weight 66 kg CLAUDIA LEXY DO [facility] 02-13-2024 07:16-0500 Heart rate 58 /min CLAUDIA LEXY DO [facility] 12-13-2023 15:49-0400 Body height 169.2 cm Aileen Gotha BARREL SCRAPER.ASSISTANT PROFESSOR OF ANTHROPOLOGY Work Phone: [facility] 12-13-2023 15:49-0400 Body mass index (BMI) [Ratio] 22.97 kg/m2 Aileen Gotha BARREL SCRAPER.ASSISTANT PROFESSOR OF ANTHROPOLOGY Work Phone: [facility] 12-13-2023 15:49-0400 Body weight 65.77 kg Aileen Gotha BARREL SCRAPER.ASSISTANT PROFESSOR OF ANTHROPOLOGY Work Phone: [facility] 12-13-2023 15:49-0400 Diastolic blood pressure 62 mm[Hg] Aileen Gotha BARREL SCRAPER.ASSISTANT PROFESSOR OF ANTHROPOLOGY Work Phone: [facility] 12-13-2023 15:49-0400 Systolic blood pressure 100 mm[Hg] Aileen Artur BARREL SCRAPER.ASSISTANT PROFESSOR OF ANTHROPOLOGY Work Phone: [facility] 09-29-2022 16:11-0400 Body height 165.7 cm Aileen Gotha BARREL SCRAPER.ASSISTANT PROFESSOR OF ANTHROPOLOGY Work Phone: [facility] 09-29-2022 16:11-0400 Body weight 57.61 kg Aileen Artur BARREL SCRAPER.ASSISTANT PROFESSOR OF ANTHROPOLOGY Work Phone: [facility] 09-29-2022 16:11-0400 Diastolic blood pressure 72 mm[Hg] Aileen Gotha BARREL SCRAPER.ASSISTANT PROFESSOR OF ANTHROPOLOGY Work Phone: [facility] 09-29-2022 16:11-0400 Heart rate 64 /min Aileen Gotha BARREL SCRAPER.ASSISTANT PROFESSOR OF ANTHROPOLOGY Work Phone: [facility] 09-29-2022 16:11-0400 Respiratory rate 12 /min Aileen Gotha BARREL SCRAPER.ASSISTANT PROFESSOR OF ANTHROPOLOGY Work Phone: [facility] 09-29-2022 16:11-0400 SaO2% (BldA) [Mass fraction] 98 % Aileen Artur BARREL SCRAPER.ASSISTANT PROFESSOR OF ANTHROPOLOGY Work Phone: [facility] 09-29-2022 16:11-0400 Systolic blood pressure 104 mm[Hg] Ailene Gotha BARREL SCRAPER.ASSISTANT PROFESSOR OF ANTHROPOLOGY Work Phone: [facility] 12-28-2021 13:16-0400 Body temperature 97.81 [degF] Bennett Carpio MD Work Phone: [facility] 12-28-2021 13:16-0400 Body weight 63.5 kg Bennett Carpio MD Work Phone: [facility] 12-28-2021 13:16-0400 Diastolic blood pressure 70 mm[Hg] Bennett Carpio MD Work Phone: [facility] 12-28-2021 13:16-0400 Heart rate 67 /min Bennett Carpio MD Work Phone: [facility] 12-28-2021 13:16-0400 Respiratory rate 16 /min Bennett Carpio MD Work Phone: [facility] 12-28-2021 13:16-0400 SaO2% (BldA) [Mass fraction] 98 % Bennett Carpio MD Work Phone: [facility] 12-28-2021 13:16-0400 Systolic blood pressure 116 mm[Hg] Bennett Carpio MD Work Phone: [facility] 09-22-2021 10:30-0400 Body temperature 98.71 [degF] Bennett Carpio MD Work Phone: [facility] 09-22-2021 10:30-0400 Body weight 62.14 kg Bennett Carpio MD Work Phone: [facility] 09-22-2021 10:30-0400 Diastolic blood pressure 65 mm[Hg] Bennett Carpio MD Work Phone: [facility] 09-22-2021 10:30-0400 Heart rate 61 /min Bennett Carpio MD Work Phone: [facility] 09-22-2021 10:30-0400 Respiratory rate 16 /min Bennett Carpio MD Work Phone: [facility] 09-22-2021 10:30-0400 SaO2% (BldA) [Mass fraction] 95 % Bennett Carpio MD Work Phone: [facility] 09-22-2021 10:30-0400 Systolic blood pressure 106 mm[Hg] Bennett Carpio MD Work Phone: [facility] 09-14-2021 15:52-0400 Body height 166.4 cm Aileen Gotha BARREL SCRAPER.ASSISTANT PROFESSOR OF ANTHROPOLOGY Work Phone: [facility] 09-14-2021 15:52-0400 Body weight 64.41 kg Aileen Artur BARREL SCRAPER.ASSISTANT PROFESSOR OF ANTHROPOLOGY Work Phone: [facility] 09-14-2021 15:52-0400 Diastolic blood pressure 60 mm[Hg] Aileen Artur BARREL SCRAPER.ASSISTANT PROFESSOR OF ANTHROPOLOGY Work Phone: [facility] 09-14-2021 15:52-0400 Systolic blood pressure 88 mm[Hg] Aileen Gotha BARREL SCRAPER.ASSISTANT PROFESSOR OF ANTHROPOLOGY Work Phone: [facility] Encounters Encounter Date Encounter Type Care Provider Facility Start: 10-03-2024 ambulatory Daja Mclean ity:[facility] Start: 08-25-2024 End: 08-25-2024 [facility] Aileen Artur BARREL SCRAPER.ASSISTANT PROFESSOR OF ANTHROPOLOGY Work Phone: OB/Gynecology Comment on above: Depressive disorder (Primary Dx) Start: 08-23-2024 End: 08-23-2024 ambulatory DAJA DOZIER APRN-ASSISTANT PROFESSOR OF ANTHROPOLOGY Facility:[facility] Start: 08-23-2024 End: 08-23-2024 Patient encounter procedure DAJA DOZIER APRN-ASSISTANT PROFESSOR OF ANTHROPOLOGY [facility] Start: 07-30-2024 End: 07-30-2024 Patient encounter procedure Jerrica HERNANDEZ -[facility] Work Phone: Start: 07-30-2024 End: 07-30-2024 ambulatory Daja Dozier [employer] Work Phone: [facility] Work Phone: Start: 07-21-2024 End: 07-21-2024 Telemedicine consultation with patient Alieen Gotha BARREL SCRAPER.ASSISTANT PROFESSOR OF ANTHROPOLOGY Work Phone: OB/Gynecology Start: 07-21-2024 End: 07-21-2024 ambulatory Aileen Gotha BARREL SCRAPER.ASSISTANT PROFESSOR OF ANTHROPOLOGY Work Phone: OB/Gynecology Comment on above: Depression, unspecif ied depression type (Primary Dx); Other fatigue Start: 07-17-2024 End: 07-17-2024 ambulatory DAJA DOZIER BARREL SCRAPER-ASSISTANT PROFESSOR OF ANTHROPOLOGY Facility:[facility] Start: 07-07-2024 End: 07-07-2024 Get Medical Advice Aileen Siddiqui BARREL SCRAPER.ASSISTANT PROFESSOR OF ANTHROPOLOGY Work Phone: OB/Gynecology Comment on above: [facility]estone refill an d med ? Start: 06-26-2024 End: 06-26-2024 ambulatory ANTONIA MOJICA DO Facility:[facility] Start: 06-25-2024 End: 06-25-2024 ambulatory DAJA DOZIER BARREL SCRAPER-ASSISTANT PROFESSOR OF ANTHROPOLOGY Facility:[facility] Start: 05-28-[address] Darrell Barney MD -[facility] Start: 05-28-2024 End: 05-28-[address] Darrell Barney MD -[facility] Work Phone: Start: 05-28-2024 End: 05-28-2024 ambulatory Daja Dozier Facility:[facility] Start: 05-05-2024 End: 05-05-2024 ambulatory DAJA DOZIER APRN-ASSISTANT PROFESSOR OF ANTHROPOLOGY Facility:[facility] Start: 05-05-2024 End: 05-05-2024 Patient encounter procedure DAJA DOZIER BARREL SCRAPER-ASSISTANT PROFESSOR OF ANTHROPOLOGY [facility] Start: 04-01-2024 End: 04-01-2024 ambulatory DAJA DOZIER BARREL SCRAPER-ASSISTANT PROFESSOR OF ANTHROPOLOGY Facility:[facility] Start: 04-01-2024 End: 04-01-2024 Patient encounter procedure DAJA DOZIER BARREL SCRAPER-ASSISTANT PROFESSOR OF ANTHROPOLOGY [facility] Start: 03-26-2024 End: 03-27-2024 Get Medical Advice Aileen Siddiqui BARREL SCRAPER.ASSISTANT PROFESSOR OF ANTHROPOLOGY Work Phone: OB/Gynecology Comment on above: Refill on testostero ne Start: 02-18-2024 End: 02-18-2024 Telephone encounter Aileen Gotha BARREL SCRAPER.ASSISTANT PROFESSOR OF ANTHROPOLOGY Work Phone: OB/Gynecology Comment on above: Medication Problem Start: 02-13-2024 End: 02-13-2024 ambulatory CLAUDIA SCHNEIDER DO Facility:[facility] Start: 02-13-2024 End: 02-13-2024 Minor Procedure CLAUDIA SCHNEIDER DO [facility] Start: 02-08-2024 End: 02-08-2024 ambulatory JEANNE FRANCO MD Facility:[facility] Start: 02-08-2024 End: 02-08-2024 Patient encounter procedure JEANNE FRANCO MD [facility] Start: 12-20-2023 End: 12-21-2023 ambulatory Aileen Artur BARREL SCRAPER.ASSISTANT PROFESSOR OF ANTHROPOLOGY Work Phone: OB/Gynecology Comment on above: Prescriptions Start: 12-17-2023 End: 12-17-2023 Telephone encounter Aileen Gotha BARREL SCRAPER.ASSISTANT PROFESSOR OF ANTHROPOLOGY Work Phone: OB/Gynecology Comment on above: Covid Positive Start: 12-13-2023 End: 12-13-2023 ambulatory AILEEN ARTUR Facility:[facility] Start: 12-13-2023 End: 12-13-2023 Patient encounter procedure Aileen Gotha BARREL SCRAPER.ASSISTANT PROFESSOR OF ANTHROPOLOGY Work Phone: OB/Gynecology Comment on above: Encounter for gyneco logical examination (general) (routine) without abnormal findings (Primary Dx); Encounter for screening for human papillomavirus (HPV); Pap smear for cervical cancer screening; Encounter for screening mammogram for breast cancer Start: 12-13-2023 End: 12-13-2023 Patient encounter status Aileen Artur BARREL SCRAPER.ASSISTANT PROFESSOR OF ANTHROPOLOGY Work Phone: [facility] Start: 11-28-2023 End: 11-28-2023 ambulatory [facility] Start: 11-21-2023 End: 11-21-2023 [facility] Start: 11-20-2023 End: 11-20-2023 Refill Aileen Artur BARREL SCRAPER.ASSISTANT PROFESSOR OF ANTHROPOLOGY Work Phone: OB/Gynecology Comment on above: Refill Request Start: 11-14-2023 ambulatory Amber Posada Facility :[facility] Start: 11-03-2023 End: 11-03-2023 ambulatory DAJA Parish TASIA BARREL SCRAPER-ASSISTANT PROFESSOR OF ANTHROPOLOGY Facility:[facility] Start: 10-05-2023 End: 10-05-2023 ambulatory DAJA A TASIA BARREL SCRAPER-ASSISTANT PROFESSOR OF ANTHROPOLOGY Facility:[facility] Start: 10-05-2023 End: 10-05-2023 Patient encounter procedure DAJA A TASIA BARREL SCRAPER-ASSISTANT PROFESSOR OF ANTHROPOLOGY [facility] Start: 09-05-2023 Refill Aileen Gotha BARREL SCRAPER.ASSISTANT PROFESSOR OF ANTHROPOLOGY Work Phone: OB/Gynecology Comment on above: Refill Request Start: 09-03-2023 Refill Aileen Gotha BARREL SCRAPER.ASSISTANT PROFESSOR OF ANTHROPOLOGY Work Phone: OB/Gynecology Comment on above: Refill Request Start: 05-03-2023 End: 05-03-2023 ambulatory JEANNE FRANCO MD Facility:[facility] Start: 10-24-2022 End: 10-24-2022 Patient encounter procedure JEANNE FRANCO MD [facility] Start: 09-29-2022 End: 09-29-2022 Patient encounter procedure Aileen Artur BARREL SCRAPER.ASSISTANT PROFESSOR OF ANTHROPOLOGY Work Phone: OB/Gynecology Comment on above: Encounter for gyneco logical examination (general) (routine) without abnormal findings (Primary Dx); Encounter for screening for human papillomavirus (HPV); Pap smear for cervical cancer screening; Encounter for screening mammogram for breast cancer; Encounter for screening for malignant neoplasm of colon; Hormone replacement therapy (postmenopausal) Start: 09-29-2022 End: 09-29-2022 Patient encounter status Aileen Gotha BARREL SCRAPER.ASSISTANT PROFESSOR OF ANTHROPOLOGY Work Phone: [facility] Start: 09-08-2022 End: 09-08-2022 Patient encounter procedure JEANNE FRANCO MD [facility] Start: 03-24-2022 End: 03-24-2022 Patient encounter procedure JEANNE FRANCO MD [facility] Start: 12-28-2021 End: 12-28-2021 Office outpatient visit 15 minutes Bennett Carpio MD Work Phone: [facility] Comment on above: Acute maxillary sinu sitis, recurrence not specified (Primary Dx) Start: 10-07-2021 Telephone encounter Aileen alfaro APRN.ASSISTANT PROFESSOR OF ANTHROPOLOGY Work Phone: OB/Gynecology Comment on above: Results Start: 09-22-2021 End: 09-22-2021 Subsequent hospital visit by physician Xr [facility] Work Phone: [facility] Comment on above: Acute cough [R05.1] Start: 09-22-2021 End: 09-22-2021 Office outpatient new 30 minutes Bennett Carpio MD Work Phone: [facility] Comment on above: Acute cough (Primary Dx); Acute bronchitis, unspecified organism Start: 09-14-2021 End: 09-14-2021 Patient encounter procedure Aileen Siddiqui APRN.ASSISTANT PROFESSOR OF ANTHROPOLOGY Work Phone: OB/Gynecology Comment on above: Encounter for gyneco logical examination (general) (routine) without abnormal findings (Primary Dx); Encounter for screening mammogram for breast cancer; Long-term current use of testosterone replacement therapy; Thyroid dysfunction; Hormone replacement therapy (HRT); Low testosterone level in female Start: 09-14-2021 End: 09-14-2021 Patient encounter status Aileen Siddiqui APRN.CNP Work Phone: OB/Gynecology Start: 09-14-2021 End: 09-14-2021 Subsequent hospital visit by physician Screen Mammo [facility] Comment on above: Encounter for screen ing mammogram for breast cancer [Z12.31] Procedures Date Procedure Procedure Detail Performing Clinician Start: 05-28-2024 Estimated creatinine clearance Daja Thompsoner [employer] Work Phone: Start: 11-21-2023 Assay of phosphorus inorganic Daja Dozier [employer] Work Phone: Start: 11-21-2023 Folic acid measurement Daja Dozier [employer] Work Phone: Start: 11-21-2023 Measurement of C-josé luis ctive protein using high sensitivity technique Daja Dozier [employer] Work Phone: Comment on above: C-Reactive Protein ( CRP) provides useful information for thediagnosis, therapy and monitoring of inflammatory processesand associated diseases. For the evaluation of Relative Riskfor Cardiovascular Disease, a High Sensitivity CRP (HSCRP)should be ordered. Start: 11-21-2023 Measurement of renal function Daja Thompsoner [employer] Work Phone: Comment on above: GFR Calc Start: 11-21-2023 Total iron binding c apacity measurement Daja Dozier [employer] Work Phone: Start: 09-22-2021 Radiologic exam ches t 2 views Bennett Carpio MD Work Phone: Start: 09-14-2021 End: 09-14-2021 Mammography Aileen Siddiqui APRN.C [employer] Work Phone: Ligation of fallopian tube K LOUIS FRANCO MD Thyroidectomy JEANNE PAIZ MD Tonsillectomy and adenoidectomy JEANNE FRANCO MD Plan of Treatment Date Care Activity Detail Author Start: 2037 RSV Vaccine (1 - 1-d ose 75+ series) RSV Vaccine (1 - 1-dose 75+ series) [facility] Start: 12-12-2024 End: 12-12-2024 Patient encounter procedure 12/12/2024 4:00 PM EDT Office Visit OB/Gynecology [address] [place] [address] Aileen Siddiqui APRN.ASSISTANT PROFESSOR OF ANTHROPOLOGY [address] [place] [address] Annual OB/Gynecology Comment on above: Annual Start: 12-12-2024 Screening for malign ant neoplasm of cervix Cervical Cancer Screening [facility] Start: 11-17-2024 Influenza vaccination Influenz a Vaccine (Season Ended) [facility] Start: 09-14-2024 DIABETES SCREEN DIABETES SCREEN [facility] Start: 09-14-2024 Diabetes Screening Diabetes Screenin g [facility] Start: 03-13-2024 End: 03-13-2024 Patient encounter procedure 03/13/2024 4:00 PM EST Office Visit OB/Gynecology [address] [place] [address] Aileen Siddiqui APRN.ASSISTANT PROFESSOR OF ANTHROPOLOGY [address] [place] [address] Annual OB/Gynecology Comment on above: Annual Start: 01-08-2024 End: 01-08-2024 Patient encounter procedure 01/08/2024 3:00 PM EDT Appointment Mammogram [address] [place] [address] Encounter for screening mammogram for breast cancer [Z12.31] Mammogram Comment on above: Encounter for screen ing mammogram for breast cancer [Z12.31] Start: 12-13-2023 End: 12-13-2023 Patient encounter procedure 12/13/2023 4:00 PM EDT Office Visit OB/Gynecology [address] [place] [address] Aileen Siddiqui APRN.ASSISTANT PROFESSOR OF ANTHROPOLOGY [address] [place] [address] Annual OB/Gynecology Comment on above: Annual Start: 11-18-2023 Covid-19 Vaccine ( season) Covid-19 Vaccine () [facility] Start: 11-18-2023 Covid-19 Vaccine () Covid-19 Vaccine () [facility] Start: 11-18-2023 Influenza vaccination C [facility] Start: 09-30-2023 Screening for malign ant neoplasm of cervix Cervical Cancer Screening [facility] Start: 09-15-2023 Mammography MAMMOGRAM [facility] Start: 09-15-2023 Screening for malign ant neoplasm of breast Mammogram Screening [facility] Start: 07-19-2023 Urine microalbumin profile [facility] Start: 01-25-2023 HPV TESTING HPV TESTING [facility] Start: 01-25-2023 PAP TESTING PAP TESTING [facility] Start: 11-17-2022 Covid-19 Vaccine ( season) Covid-19 Vaccine () [facility] Start: 11-17-2022 Influenza vaccination INFLUENZA (#1) [facility] Start: 2022 RSV Vaccine (1 - 1-d ose 60+ series) RSV Vaccine (1 - 1-dose 60+ series) [facility] Start: 09-14-2022 Complete blood count Hemoglobin/Santiago tocrit [facility] Start: 09-14-2022 Creatinine measurement Serum Creatin ine [facility] Start: 09-14-2022 HEMOGLOBIN/HEMATOCRIT HEMOGLOBIN/HEM ATOCRIT [facility] Start: 09-14-2022 SERUM CREATININE SERUM CREATININE Cl [facility] Start: 11-17-2021 Influenza vaccination C [facility] Start: 09-14-2021 End: 11-14-2021 TESTOSTERONE, FREE AND TOTAL [facility] Work Phone: Comment on above: Expected: 09/14/2021 , Expires: 11/14/2021 Start: 09-14-2021 End: 11-14-2021 Thyrotropin [Units/volume] in Serum or Plasma [facility] Work Phone: Comment on above: Expected: 09/14/2021 , Expires: 11/14/2021 Start: 09-14-2021 End: 11-14-2021 Thyroxine (T4) free [Mass/volume] in Serum or Plasma [facility] Work Phone: Comment on above: Expected: 09/14/2021 , Expires: 11/14/2021 Start: 09-14-2021 End: 11-14-2021 Triiodothyronine (T3) [Mass/volume] in Serum or Plasma [facility] Work Phone: Comment on above: Expected: 09/14/2021 , Expires: 11/14/2021 Start: 06-21-2021 COVID-19 VACCINE (3 - Booster for Pfizer series) COVID-19 VACCINE (3 - Booster for Pfizer series) [facility] Start: 03-18-2021 COVID-19 VACCINE (3 - Booster for Pfizer series) COVID-19 VACCINE (3 - Booster for Pfizer series) [facility] Start: 03-18-2021 COVID-19 VACCINE (3 - Pfizer series) COVID-19 VACCINE (3 - Pfizer series) [facility] Start: 2012 Pneumococcal Vaccine : 50+ (1 of 1 - PCV) Pneumococcal Vaccine: 50+ (1 of 1 - PCV) [facility] Start: 2012 SHINGRIX VACCINE (1 of 2) [place]TGOM[place] GRIX VACCINE (1 of 2) [facility] Start: 11-08-2007 COLOGUARD (FIT-DNA) COLOGUARD (FIT-D NA) [facility] Start: 11-08-2007 Colonoscopy COLONOSCOPY [facility] Start: 11-08-2007 COLORECTAL CANCER SCREENING COLORECTAL CANCER SCREENING [facility] Start: 11-08-[address] [facility]: 11-08-2007 FECAL OCCULT BLOOD FECAL OCCULT BLOO D [facility] Start: 11-08-2007 Lipid panel Lipid Screening [facility] Start: 11-08-2007 LIPID SCREEN LIPID SCREEN [facility] Start: 11-08-2007 Screening for malign ant neoplasm of colon [facility] Start: 11-08-2007 [facility] Start: 1980 ANNUAL PCP TEAM CYLINDER HANDLER JUDY DISEASE VISIT ANNUAL PCP TEAM CHRONIC DISEASE VISIT [facility] Start: 1980 Anxiety Screening Anxiety Screening [facility] Start: 1980 HEPATITIS C SCREENING HEPATITIS C [facility] Start: 1980 Hepatitis C screening Hepatitis [facility] Start: 1980 HIV SCREENING HIV SCREENING [facility] Start: 1980 HIV screening HIV Screening [facility] End: 01-11-2025 DBT Breast - bilateral screening BLADIMIR SCREENING W TIGIST Radiology Routine Encounter for screening mammogram for breast cancer 1 Occurrences starting 12/13/2023 until 01/11/2025 [facility] Work Phone: Comment on above: 1 Occurrences starti ng 12/13/2023 until 01/11/2025 HIGH RISK HUMAN MARIE LLOMA VIRUS (HPV), PCR FOR DETECTION AND GENOTYPING HIGH RISK HUMAN PAPILLOMA VIRUS (HPV), PCR FOR DETECTION AND GENOTYPING Lab Routine Encounter for gynecological examination (general) (routine) without abnormal findings Encounter for screening for human papillomavirus (HPV) Pap smear for cervical cancer screening 12/13/2023 4:26 PM EDT [facility] End: 10-29-2023 BLADIMIR SCREENING BLADIMIR SCREENING Radiology Routine Encounter for screening mammogram for breast cancer 1 Occurrences starting 09/29/2022 until 10/29/2023 [facility] Work Phone: Comment on above: 1 Occurrences starti ng 09/29/2022 until 10/29/2023 PAP TEST PAP TEST Lab [place] Encounter for gynecological examination (general) (routine) without abnormal findings Encounter for screening for human papillomavirus (HPV) Pap smear for cervical cancer screening 09/29/2022 4:39 PM EDT [facility] Work Phone: PAP TEST PAP TEST Lab [place] Encounter for gynecological examination (general) (routine) without abnormal findings Encounter for screening for human papillomavirus (HPV) Pap smear for cervical cancer screening 12/13/2023 4:26 PM EDT [facility] End: 10-14-2022 Screening mammography bi 2-view breast inc cad BLADIMIR SCREENING Radiology Routine Encounter for screening mammogram for breast cancer 1 Occurrences starting 09/14/2021 until 10/14/2022 [facility] Work Phone: Comment on above: 1 Occurrences starti ng 09/14/2021 until 10/14/2022 Screening mammograph y bi 2-view breast inc cad BLADIMIR SCREENING Radiology Routine Encounter for screening mammogram for breast cancer [facility] c Immunizations Immunization Date Immunization Notes Care Provider Fa cili 01-21-2021 SARS-CoV-2 mRNA (tozinameran) vaccine DAJA DOZIER BARREL SCRAPER-ASSISTANT PROFESSOR OF ANTHROPOLOGY [facility] 12-21-2020 SARS-CoV-2 mRNA (tozinameran) vaccine JEANNE FRANCO MD [facility] 01-05-2015 influenza virus vaccine, unspecified formulation JEANNE FRANCO MD [facility] 01-19-2014 influenza virus vaccine, unspecified formulation JEANNE FRANCO MD [facility] 07-17-2013 tetanus and diphther ia toxoids, adsorbed, preservative free, for adult use (5 Lf of tetanus toxoid and 2 Lf of diphtheria toxoid) JEANNE FRANCO MD [facility] 07-17-2013 tetanus toxoid, reduced diphtheria toxoid, and acellular pertussis vaccine, adsorbed Aileen Siddiqui BARREL SCRAPER.ASSISTANT PROFESSOR OF ANTHROPOLOGY Work Phone: [facility] Work Phone: 07-16-2013 tetanus and diphther ia toxoids, adsorbed, preservative free, for adult use (5 Lf of tetanus toxoid and 2 Lf of diphtheria toxoid) JEANNE FRANCO MD [facility] 08-26-2002 rabies vaccine, unspecified formulation JEANNE FRANCO MD [facility] 08-26-2001 tetanus and diphther ia toxoids, adsorbed, preservative free, for adult use (5 Lf of tetanus toxoid and 2 Lf of diphtheria toxoid) JEANNE FRANCO MD [facility] Payers Date Payer Category Payer Self-pay 2023 Private Health Insurance [id number] 2021 [employer] Blue [employer] [place] PPO [id number] 2021 Unknown [place] PPO [id number] 2021-Present [phone] [place] [address] PPO [id number] 2021 Unknown [id number] 2021 Unknown [id number] 1960 Unknown [id number] [id number] .1960 Unknown [id number] [id number] .1962 Unknown [id number] 2.16840.1.266567.3.579.2 .627 1962 Unknown [id number] [id number] .627 1962 Unknown [id number] [id number] .627 1962 Unknown [id number] 2.16.840.1.468446.3.579.2 .627 1962 Unknown [id number] 2.16.840.1.523937.3.579.2 .627 1962 Unknown [id number] 2.16.840.1.445896.3.579.2 .62 1962 Unknown [id number] 2.16.840.1.082032.3.579.2 .627 1962 Unknown [id number] 2.16.840.1.624869.3.579.2 .62 1962 Unknown [id number] 2.16.840.1.408248.3.579.2 .627 1962 Unknown [id number] 2.840.1.139029.3.579.2 .627 Self-pay SELF PAY INSURANCE [id number] Unknown [id number] [id number] .462 Unknown [id number] 2.16840.1.264571.3.579.2 .462 Unknown [id number] 2.16840.1.005366.3.579.2 .462 Unknown [id number] 2.16840.1.015574.3.579.2 .462 Unknown [id number] [id number] .462 Unknown [id number] 2.16840.1.380167.3.579.2 .462 Unknown [id number] [id number] .462 Social History Date Type Detail Facility Start: 07-06-2016 End: 12-13-2023 Tobacco smoking status KYIS Never smoked tobacco [facility] Work Phone: Start: 09-14-2021 End: 12-13-2023 Alcohol intake Ex-drinker (finding) [facility] Start: 02-07-2019 History SDOH Financial 5 [facility] Start: 02-07-2019 History SDOH Food Worry 1 [facility] Start: 02-07-2019 History SDOH Transpo rt Med 2 [facility] Start: 02-07-2019 Education 13 [facility] Start: 1960 Sex Assigned At Not on file C [facility] Start: 09-04-2021 End: 12-28-2021 Exposure to SARS-CoV-2 (event) Not sure [facility] Start: 07-06-2016 End: 12-13-2023 Tobacco use and exposure Smokeless tobacco non-user [facility] Start: 1960 Sex Assigned At Female A [facility] Start: 02-07-2019 End: 09-29-2022 History of Social function [facility] Work Phone: Start: 02-07-2019 End: 09-29-2022 Tobacco use panel [facility] Work Phone: How hard is it for y ou to pay for the very basics like food, housing, medical care, and heating Not hard at all [facility] Work Phone: (I/We) worried wheth er (my/our) food would run out before (I/we) got money to buy more. Never true [facility] Work Phone: Sexual Orientation [facility] Start: 09-11-2018 Sex Female (finding) [facility] Functional Status Date Assessment Result Facility 02-13-2024 [facility] 02-13-2024 Functional Status Maintained [facility] Mental Status Date Assessment Result Facility 02-13-2024 Mental Status Oriented x [facility] [place] 02-13-2024 [facility] Clinical Notes 03-22-2018 to 08-25-2024 Aileen Siddiqui APRN.ASSISTANT PROFESSOR OF ANTHROPOLOGY - 08/25/2024 4:17 PM EDTMAileen santos APRN.CLEMENTE - 07/21/2024 4:00 PM EDTTelephone Encounter - Aileen Siddiqui APRN.CNP - 07/07/2024 11:19 AM EDT Note Date & Type Note Facility 08-25-2024 Note HNO ID: [id number] Author: AILEEN SIDDIQUI APRN.CNP Service: ? Author Type: Nurse Practitioner Type: Progress Notes Filed: 08/25/2024 16:31 Note Text: VIRTUAL VISIT PROGRESS NOTE This is a virtual visit using [employer] Video Visit. It required patient-provider interaction for the medical decision making as documented below. I have communicated my name and active licensure. The patient's identity and physical location were verified at the time of this visit. Either the patient or their legal traffic representative has been informed of the risks and benefits of -- and alternatives to -- treatment through a remote evaluation and consents to proceed with the evaluation remotely. Юлия Sequeira is a 63 year old female seen for Wellbutrin follow up. Patient states that she is noticing improvement in the moods, fatigue, low energy, and improved sleep. She would like to increase the dosage at this time, because she still noticing some of the symptoms more frequent than she would like. Patient's thyroid medication has also been adjusted recently by another provider. 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) 2000 cryo/other facility Postablative hypothyroidism 07/06/2016 Renal insufficiency 2017 Thyroid cancer (HCC) 07/06/2016 Vitamin D deficiency 07/06/2016 PAST SURGICAL HISTORY Procedure Laterality Date HYSTEROSCOPY ENDOMETRIAL ABLATION LIG/TRNSXJ FLP TUBE ABDL/VAG APPR UNI/BI THYROIDECTOMY TOTAL/COMPLETE 2004 total FAMILY HISTORY Problem Relation Age of Onset Diabetes Paternal Grandmother other (goiter) Paternal Grandmother great grandmother Social History Tobacco Use Smoking status: Never Smokeless tobacco: Never Vaping Use Vaping status: Never Used Substance Use Topics Alcohol use: Not Currently Drug use: No Current Outpatient Medications Medication Sig buPROPion XL (WELLBUTRIN XL) 150 mg 24 hr tablet Take 1 tablet by mouth once daily. levothyroxine (SYNTHROID) 88 mcg tablet Take 88 mcg by mouth two times a week. levothyroxine (LEVOXYL) 75 mcg tablet Take 75 mcg by mouth once daily. testosterone in cream base (CPD) Apply 1 g to affected area once daily. Comments for compounding pharmacy: Testosterone cream 25MG/2.5Gm estradiol (ESTRACE) 1 mg tablet Take 1 tablet by mouth once daily. progesterone micronized (PROMETRIUM) 100 mg capsule Take 1 capsule by mouth once daily. MAGNESIUM ORAL Take by mouth. liothyronine (CYTOMEL) 5 mcg tablet Take 1 tablet by mouth once daily. (Patient taking differently: Take 5 mcg by mouth once daily. Three tablets by mouth daily) No current facility-administered medications for this visit. ALLERGIES No Known Allergies REVIEW OF SYSTEMS: GENERAL: doing well, improvement of symptoms PHYSICAL EXAMINATION: VIDEO EXAM: (if completed, performed via video enabled technology) No exam performed ASSESSMENT/PLAN: 1. Depressive disorder - ICD9: 311, ICD10: F32.A Increase Wellbutrin to 300 mg daily Follow up as needed I spent a total of 20 minutes on the date of the service which included preparing to see the patient, [id number] patient care, completing clinical documentation, obtaining and/or reviewing separately obtained history, counseling and educating the patient/family/caregiver, and ordering medications, tests, or procedures Aileen Siddiqui APRN.[facility] 08-25-2024 History of Presen t illness Narrative VIRTUAL VISIT PROGRESS NOTE This is a virtual visit using [employer] Video Visit. It required patient-provider interaction for the medical decision making as documented below. I have communicated my name and active licensure. The patient's identity and physical location were verified at the time of this visit. Either the patient or their legal traffic representative has been informed of the risks and benefits of -- and alternatives to -- treatment through a remote evaluation and consents to proceed with the evaluation remotely. Юлия Sequeira is a 63 year old female seen for Wellbutrin follow up. Patient states that she is noticing improvement in the moods, fatigue, low energy, and improved sleep. She would like to increase the dosage at this time, because she still noticing some of the symptoms more frequent than she would like. Patient's thyroid medication has also been adjusted recently by another provider. 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) 2000 cryo/other facility Postablative hypothyroidism 07/06/2016 Renal insufficiency 2016 Thyroid cancer (HCC) 07/06/2016 Vitamin D deficiency 07/06/2016 PAST SURGICAL HISTORY Procedure Laterality Date HYSTEROSCOPY ENDOMETRIAL ABLATION LIG/TRNSXJ FLP TUBE ABDL/VAG APPR UNI/BI THYROIDECTOMY TOTAL/COMPLETE 2004 total FAMILY HISTORY Problem Relation Age of Onset Diabetes Paternal Grandmother other (goiter) Paternal Grandmother great grandmother Social History Tobacco Use Smoking status: Never Smokeless tobacco: Never Vaping Use Vaping status: Never Used Substance Use Topics Alcohol use: Not Currently Drug use: No Current Outpatient Medications Medication Sig buPROPion XL (WELLBUTRIN XL) 150 mg 24 hr tablet Take 1 tablet by mouth once daily. levothyroxine (SYNTHROID) 88 mcg tablet Take 88 mcg by mouth two times a week. levothyroxine (LEVOXYL) 75 mcg tablet Take 75 mcg by mouth once daily. testosterone in cream base (CPD) Apply 1 g to affected area once daily. Comments for compounding pharmacy: Testosterone cream 25MG/2.5Gm estradiol (ESTRACE) 1 mg tablet Take 1 tablet by mouth once daily. progesterone micronized (PROMETRIUM) 100 mg capsule Take 1 capsule by mouth once daily. MAGNESIUM ORAL Take by mouth. liothyronine (CYTOMEL) 5 mcg tablet Take 1 tablet by mouth once daily. (Patient taking differently: Take 5 mcg by mouth once daily. Three tablets by mouth daily) No current facility-administered medications for this visit. ALLERGIES No Known Allergies REVIEW OF SYSTEMS: GENERAL: doing well, improvement of symptoms PHYSICAL EXAMINATION: VIDEO EXAM: (if completed, performed via video enabled technology) No exam performed ASSESSMENT/PLAN: 1. Depressive disorder - ICD9: 311, ICD10: F32.A Increase Wellbutrin to 300 mg daily Follow up as needed I spent a total of 20 minutes on the date of the service which included preparing to see the patient, [id number] patient care, completing clinical documentation, obtaining and/or reviewing separately obtained history, counseling and educating the patient/family/caregiver, and ordering medications, tests, or procedures Aileen Siddiqui APRN.CLEMENTE documented in this encounter [facility] 07-21-2024 History of Presen t illness Narrative VIRTUAL VISIT PROGRESS NOTE This is a virtual visit using [employer] Video Visit. It required patient-provider interaction for the medical decision making as documented below. I have communicated my name and active licensure. The patient's identity and physical location were verified at the time of this visit. Either the patient or their legal traffic representative has been informed of the risks and benefits of -- and alternatives to -- treatment through a remote evaluation and consents to proceed with the evaluation remotely. Юлия Sequeira is a 63 year old female seen for medication change. Patient has been weaning off Celexa 20 mg, she is down to half a tablet every other day. She would like to try switching to a different medication to help with depression. She has been battling issues with thyroid levels over the past several months. She has been very fatigued and low energy, sleeping 10 to 12 hours a day. She has a very physical job and does workout frequently. 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) 2000 cryo/other facility Postablative hypothyroidism 07/06/2016 Renal insufficiency 2017 Thyroid cancer (HCC) 07/06/2016 Vitamin D deficiency 07/06/2016 PAST SURGICAL HISTORY Procedure Laterality Date HYSTEROSCOPY ENDOMETRIAL ABLATION LIG/TRNSXJ FLP TUBE ABDL/VAG APPR UNI/BI THYROIDECTOMY TOTAL/COMPLETE 2004 total FAMILY HISTORY Problem Relation Age of Onset Diabetes Paternal Grandmother other (goiter) Paternal Grandmother great grandmother Social History Tobacco Use Smoking status: Never Smokeless tobacco: Never Vaping Use Vaping status: Never Used Substance Use Topics Alcohol use: Not Currently Drug use: No Current Outpatient Medications Medication Sig testosterone in cream base (CPD) Apply 1 g to affected area once daily. Comments for compounding pharmacy: Testosterone cream 25MG/2.5Gm citalopram (CELEXA) 20 mg tablet Take 1 tablet by mouth once daily. citalopram (CELEXA) 20 mg tablet Take 1 tablet by mouth once daily. estradiol (ESTRACE) 1 mg tablet Take 1 tablet by mouth once daily. progesterone micronized (PROMETRIUM) 100 mg capsule Take 1 capsule by mouth once daily. MAGNESIUM ORAL Take by mouth. citalopram hydrobromide (CELEXA) 10 mg tablet Take 1 tablet by mouth once daily. levothyroxine (SYNTHROID) 100 mcg tablet Changed to 75 mcg daily June 2022 liothyronine (CYTOMEL) 5 mcg tablet Take 1 tablet by mouth once daily. (Patient taking differently: Take 5 mcg by mouth once daily. Three tablets by mouth daily) No current facility-administered medications for this visit. ALLERGIES No Known Allergies REVIEW OF SYSTEMS: GENERAL: admits to fatigue, low energy PHYSICAL EXAMINATION: VIDEO EXAM: (if completed, performed via video enabled technology) No exam performed ASSESSMENT/PLAN: 1. Depression, unspecified depression type - ICD9: 311, ICD10: F32.A (primary diagnosis) DC Celexa Start with Wellbutrin 150 mg daily- start with 1/2 tablet for 1 wk then increase to a whole tablet. Follow up in 5-6 wks 2. Other fatigue - ICD9: 780.79, ICD10: R53.83 I spent a total of 24 minutes on the date of the service which included preparing to see the patient, [id number] patient care, completing clinical documentation, obtaining and/or reviewing separately obtained history, counseling and educating the patient/family/caregiver, and ordering medications, tests, or procedures Aileen Siddiqui APRN.CLEMENTE documented in this encounter [facility] 07-21-2024 Note HNO ID: [id number] Author: AILEEN SIDDIQUI APRN.CLEMENTE Service: ? Author Type: Nurse Practitioner Type: Progress Notes Filed: 07/21/2024 16:10 Note Text: VIRTUAL VISIT PROGRESS NOTE This is a virtual visit using [employer] Video Visit. It required patient-provider interaction for the medical decision making as documented below. I have communicated my name and active licensure. The patient's identity and physical location were verified at the time of this visit. Either the patient or their legal traffic representative has been informed of the risks and benefits of -- and alternatives to -- treatment through a remote evaluation and consents to proceed with the evaluation remotely. Юлия Sequeira is a 63 year old female seen for medication change. Patient has been weaning off Celexa 20 mg, she is down to half a tablet every other day. She would like to try switching to a different medication to help with depression. She has been battling issues with thyroid levels over the past several months. She has been very fatigued and low energy, sleeping 10 to 12 hours a day. She has a very physical job and does workout frequently. 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) 2000 cryo/other facility Postablative hypothyroidism 07/06/2016 Renal insufficiency 2017 Thyroid cancer (HCC) 07/06/2016 Vitamin D deficiency 07/06/2016 PAST SURGICAL HISTORY Procedure Laterality Date HYSTEROSCOPY ENDOMETRIAL ABLATION LIG/TRNSXJ FLP TUBE ABDL/VAG APPR UNI/BI THYROIDECTOMY TOTAL/COMPLETE 2004 total FAMILY HISTORY Problem Relation Age of Onset Diabetes Paternal Grandmother other (goiter) Paternal Grandmother great grandmother Social History Tobacco Use Smoking status: Never Smokeless tobacco: Never Vaping Use Vaping status: Never Used Substance Use Topics Alcohol use: Not Currently Drug use: No Current Outpatient Medications Medication Sig testosterone in cream base (CPD) Apply 1 g to affected area once daily. Comments for compounding pharmacy: Testosterone cream 25MG/2.5Gm citalopram (CELEXA) 20 mg tablet Take 1 tablet by mouth once daily. citalopram (CELEXA) 20 mg tablet Take 1 tablet by mouth once daily. estradiol (ESTRACE) 1 mg tablet Take 1 tablet by mouth once daily. progesterone micronized (PROMETRIUM) 100 mg capsule Take 1 capsule by mouth once daily. MAGNESIUM ORAL Take by mouth. citalopram hydrobromide (CELEXA) 10 mg tablet Take 1 tablet by mouth once daily. levothyroxine (SYNTHROID) 100 mcg tablet Changed to 75 mcg daily June 2022 liothyronine (CYTOMEL) 5 mcg tablet Take 1 tablet by mouth once daily. (Patient taking differently: Take 5 mcg by mouth once daily. Three tablets by mouth daily) No current facility-administered medications for this visit. ALLERGIES No Known Allergies REVIEW OF SYSTEMS: GENERAL: admits to fatigue, low energy PHYSICAL EXAMINATION: VIDEO EXAM: (if completed, performed via video enabled technology) No exam performed ASSESSMENT/PLAN: 1. Depression, unspecified depression type - ICD9: 311, ICD10: F32.A (primary diagnosis) DC Celexa Start with Wellbutrin 150 mg daily- start with 1/2 tablet for 1 wk then increase to a whole tablet. Follow up in 5-6 wks 2. Other fatigue - ICD9: 780.79, ICD10: R53.83 I spent a total of 24 minutes on the date of the service which included preparing to see the patient, hfex-bx-hanh patient care, completing clinical documentation, obtaining and/or reviewing separately obtained history, counseling and educating the patient/family/caregiver, and ordering medications, tests, or procedures Aileen Siddiqui APRN.CNP [facility] 07-07-2024 Telephone encount er Note Please let the patient know that I did send in her testosterone cream for her. And I would like her to set up an appointment to discuss coming off the citalopram and switching to Wellbutrin. It can be a virtual visit if that works better for her. Aileen Siddiqui APRN.CLEMENTE [facility] 07-07-2024 Miscellaneous Notes Formattin g of this note might be different from the original. Please let the patient know that I did send in her testosterone cream for her. And I would like her to set up an appointment to discuss coming off the citalopram and switching to Wellbutrin. It can be a virtual visit if that works better for her. Aileen Siddiqui APRN.CLEMENTE documented in this encounter [facility] 05-28-2024 Evaluation note Diagnosis Onset Date Resolution Leukopenia resolved May 28 2:51pm [facility] Work Phone: 1(719) 415-330302-19-2025 Evaluation + Plan note Future Scheduled Tests Laboratory* Thyroid Stimulating Hormone 05/07/24 * Free T4 05/07/24 * Creatinine Random Urine 01/13/24 * Protein Random Urine 01/13/24 * Ratio Prot/Creat Urine 01/13/24 Radiology* CT Abdomen w/ + w/o Contrast 06/25/24 [facility] 01-08-2025 Miscellaneous Notes* Telephone Encounter - Dimple Arias RN - 03/26/2024 9:36 AM EST Last annual 12/13/23. Requested Prescriptions Pending Prescriptions Disp Refills testosterone in cream base (CPD) 1 Each 1 Sig: Apply 1 g to affected area once daily. Comments for compounding pharmacy: Testosterone cream 25MG/2.5Gm Dimple Arias RN [facility] Tele[facility] encounter Note * Telephone Encounter - Dimple Arias RN - 03/26/2024 9:36 AM EST Last annual 12/13/23. Requested Prescriptions Pending Prescriptions Disp Refills testosterone in cream base (CPD) 1 Each 1 Sig: Apply 1 g to affected area once daily. Comments for compounding pharmacy: Testosterone cream 25MG/2.5Gm Dimple Arias RN [facility]12-02-2024 Telephone encounter Note* Telephone Encounter - Aileen Siddiqui APRN.CNP - 02/18/2024 1:23 PM EST Order sent. Aileen Siddiqui APRN.CLEMENTE [facility]12-02-2024 Miscellaneous Notes* Telephone Encounter - Aileen Siddiqui APRN.CNP - 02/18/2024 1:23 PM EST Order sent. Aileen Siddiqui APRN.CNP * Telephone Encounter - Dimple Arias RN - 02/18/2024 12:05 PM EST Patient notified. She actually needed the [facility] in [place] for the 30 day supply. Leave the 90 day one at [facility] as prescribed. Please file again. Dimple Arias RN * Telephone Encounter - Aileen Siddiqui APRN.CNP - 02/18/2024 11:08 AM EST Patient is to start the Celexa 10 mg daily when she has completed those 10 tablets she can increaseto the 20 mg tablets. I sent 30 tablets into [facility] in [place] and 90-day supplies to her mail order. Aileen Siddiqui APRN.CNP * Telephone Encounter - Hermila Chaves RN - 02/18/2024 10:53 AM EST Patient called. States that since she's been off the Citalopram she's been more irritable. Believesthe medication was helping her more than she thought. She has 10 tablets of the 10 MG dose left. She would like to ease back in again. Would need a new RX for the 20 MG. A short term supply sent to [facility] and half-way supply sent to [facility]. Hermila Chaves RN [facility] Telephone encounter Note * Telephone Encounter - Dimple Arias RN - 02/18/2024 12:05 PM EST Patient notified. She actually needed the [facility] in [place] for the 30 day supply. Leave the 90 day one at [facility] as prescribed. Please file again. Dimple Arias RN [facility]12-02-2024 Telephone encounter Note* Telephone Encounter - Aileen Siddiqui APRN.CNP - 02/18/2024 11:08 AM EST Patient is to start the Celexa 10 mg daily when she has completed those 10 tablets she can increaseto the 20 mg tablets. I [facility] tablets [facility] in [place] and 90-day supplies to her mail order. Aileen Siddiqui APRN.CLEMENTE [facility]12-02-2024 Telephone encounter Note* Telephone Encounter - Hermila Chaves RN - 02/18/2024 10:53 AM EST Patient called. States that since she's been off the Citalopram she's been more irritable. Believesthe medication was helping her more than she thought. She has 10 tablets of the 10 MG dose left. She would like to ease back in again. Would need a new RX for the 20 MG. A short term supply sent to [facility] and terminal operations supervisor supply sent to [facility]. Hermila Chaves RN [facility]11-27-2024 Evaluation + Plan noteExtracted from: Title:Clinical Document Author:CLAUDIA SCHNEIDER ate:02/13/24 [facility] ADMISSION HISTORY AN D PHYSICIAL CHIEF COMPLAINT: Colorectal cancer screening HISTORY OF PRESENT ILLNESS: Colorectal cancer screening REVIEW OF SYSTEMS: Constitutional: denies weight loss Cardiovascular:denies chest pain, palpitations Respiratory:denies shortness of breath Gastrointestinal:no abd pain Musculoskeletal: no arthralgias Skin: no rashes ACTIVE PROBLEMS: (9) Attention deficit ([id number]) CKD (chronic kidney disease) stage 3, GFR 30-59 ml/min (3211672836) Colon cancer screening (525681355) H/O total thyroidectomy (4337420961) Hypothyroidism (45763704) Kidney failure (74156843) Thyroid cancer (513288407) Vitamin D deficiency (65573835) Vitamin D toxicity (72350077) MEDICATIONS: Active Inpt Meds: None Active PRN Meds: None One Time Meds: None Active IV Meds: None ALLERGIES: (1) NKA FAMILY HISTORY: SOCIAL HISTORY: PHYSICAL EXAM: VITALS: No Data Available 24 Hr Tmax: No Data Available 36 Hr Tmax: No Data Available Vital Signs are the last 5 in the past 48 hours. Weights display the last 5 within 7 days. Initial Wt: No Data Available Current Wt: No Data Available physical exam alert and oriented cardio; regular without murmur pulm; clear abd; soft, nontender LABS: No 36hr Lab Data DIAGNOSTICS: IMPRESSION: Colorectal cancer screening PLAN: Colonoscopy as discussed in the office Future Scheduled Tests Laboratory* Thyroid Stimulating Hormone 02/08/24 * Free T4 02/08/24 * Creatinine Random Urine 01/13/24 * Protein Random Urine 01/13/24 * Ratio Prot/Creat Urine 01/13/24 [facility] 11-27-2024 Hospital Discharge instructions Patient Education 02/13/2024 08:05:14 Monitored Anesthesia Care, Care After Monitored Anesthesia Care, Care After These instructions provide you with information about caring for yourself after your procedure. Your health care provider may also give you more specific instructions. Your treatment has been plannedaccording to current medical practices, but problems sometimes occur. Call your health care provider if you have any problems or questions after your procedure. What can I expect after the procedure? After your procedure, you may: Feel sleepy for several hours. Feel clumsy and have poor balance for several hours. Feel forgetful about what happened after the procedure. Have poor judgment for several hours. Feel nauseous or vomit. Have a sore throat if you had a breathing tube during the procedure. Follow these instructions at home: For at least 24 hours after the procedure: Have a responsible adult stay with you. It is important to have someone help care for you until youare awake and alert. Rest as needed. Do not: ?Participate in activities in which you could fall or become injured. ?Drive. ?Use heavy machinery. ?Drink alcohol. ?Take sleeping pills or medicines that cause drowsiness. ?Make important decisions or sign legal documents. ?Take care of children on your own. Eating and drinking Follow the diet that is recommended by your health care provider. If you vomit, drink water, juice, or soup when you can drink without vomiting. Make sure you have little or no nausea before eating solid foods. General instructions Take pfoq-ome-cmywerz and prescription medicines only as told by your health care provider. If you have sleep apnea, surgery and certain medicines can increase your risk for breathing problems. Follow instructions from your health care provider about wearing your sleep device: ?Anytime you are sleeping, including during daytime naps. ?While taking prescription pain medicines, sleeping medicines, or medicines that make you drowsy. If you smoke, do not smoke without supervision. Keep all follow-up visits as told by your health care provider. This is important. Contact a health care provider if: You keep feeling nauseous or you keep vomiting. You feel light-headed. You develop a rash. You have a fever. Get help right away if: You have trouble breathing. Summary For several hours after your procedure, you may feel sleepy and have poor judgment. Have a responsible adult stay with you for at least 24 hours or until you are awake and alert. This information is not intended to replace advice given to you by your health care provider. Make sure you discuss any questions you have with your health care provider. Document Released: 06/25/2016 Document Revised: 06/03/2018 Document Reviewed: 06/25/2016 [employer] Patient Education 2020 [employer]. 02/13/2024 08:05:11 Colonoscopy, Adult, Care After Colonoscopy, Adult, Care After This sheet gives you information about how to care for yourself after your procedure. Your health care provider may also give you more specific instructions. If you have problems or questions, contact your health care provider. What can I expect after the procedure? After the procedure, it is common to have: A small amount of blood in your stool for 24 hours after the procedure. Some gas. Mild abdominal cramping or bloating. Follow these instructions at home: General instructions For the first 24 hours after the procedure: ?Do not drive or use machinery. ?Do not sign important documents. ?Do not drink alcohol. ?Do your regular daily activities at a slower pace than normal. ?Eat soft, aqxm-nh-ftfymj foods. Take qiuq-agg-ivvovlg or prescription medicines only as told by your health care provider. Relieving cramping and bloating Try walking around when you have cramps or feel bloated. Apply heat to your abdomen as told by your health care provider. Use a heat source that your healthcare provider recommends, such as a moist heat pack or a heating pad. ?Place a towel between your skin and the heat source. ?Leave the heat on for 20 30 minutes. ?Remove the heat if your skin turns bright red. This is especially important if you are unable to feel pain, heat, or cold. You may have a greater risk of getting burned. Eating and drinking Drink enough fluid to keep your urine pale yellow. Resume your normal diet as instructed by your health care provider. Avoid heavy or fried foods thatare hard to digest. Avoid drinking alcohol for as long as instructed by your health care provider. Contact a health care provider if: You have blood in your stool 2 3 days after the procedure. Get help right away if: You have more than a small spotting of blood in your stool. You pass large blood clots in your stool. Your abdomen is swollen. You have nausea or vomiting. You have a fever. You have increasing abdominal pain that is not relieved with medicine. Summary After the procedure, it is common to have a small amount of blood in your stool. You may also have mild abdominal cramping and bloating. For the first 24 hours after the procedure, do not drive or use machinery, sign important documents, or drink alcohol. Contact your health care provider if you have a lot of blood in your stool, nausea or vomiting, a fever, or increased abdominal pain. This information is not intended to replace advice given to you by your health care provider. Make sure you discuss any questions you have with your health care provider. Document Released: 10/17/2004 Document Revised: 12/26/2017 Document Reviewed: 05/16/2016 [employer] Patient Education 2020 [employer]. Follow Up Care 01/11/2024 11:15:40 With:CLAUDIA SCHNEIDER DO, Clinical Gastroenterology Address: [address] [place] [address] [place] [address] [phone] When: Unknown With:DAJA DOZIER Address: [address] [place] [phone] When: Unknown [facility] 11-27-2024 Note Discharge Instructions Thank you for allowing [facility] to assist you with your healthcare needs. The following is importantdischarge information regarding your hospital visit. Your Care Team DAJA DOZIER Dr. What to do next Instructions From Your Doctor Screening colonoscopy 8 to 10 years Scheduled Follow-Up Appointments Appointment Type When With Where Contact Information StatusENDO OV 02/21/2024 03:45 PM JEANNE SKAGGS MD [address] [place] [address]- [phone] Confirmed Follow Up Appointments Follow Up with CLAUDIA SCHNEIDER DO, Clinical Gastroenterology Where:[address] [place] [address] [place] [address]- [phone] Follow Up with DAJA DOZIER Where:[address] [place] [phone] The Following Activity and Diet Have Been Ordered for You Discharge Activity - Ordered -- Driving Restricted, No driving until tomorrow, 02/13/24 7:21:00 EST Discharge Return to Work, School, or Sports (Discharge Return to status) - Ordered -- May return to: work, 02/13/24 7:21:00 EST Discharge Diet - Ordered -- Type of Diet: Regular Diet, 02/13/24 7:21:00 EST Allergies NKA Medications Please ask your primary doctor or pharmacist before taking any other medication not listed, including over the counter drugs, herbal medications, vitamins and or supplements as they may interact withyour home medications. What How Much When Instructions Last Dose Unchanged estradiol (estradiol 1 mg oral tablet) 1 tab(s) by mouth Once a day Unchanged levothyroxine (Levoxyl 88 mcg (0.088 mg) oral tablet) 1 tab(s) by mouth Once a day Duration: 60 Days Unchanged liothyronine (liothyronine 5 mcg oral tablet) 2 tab(s) by mouth Once a day Duration: 90 Days Unchanged progesterone (progesterone 100 mg oral capsule) Please take this list to your next doctor s visit. Bring all medications you take, including over the counter medications, herbals and other supplements with you to your doctor s visit. Patients and families are reminded to discard old lists and to update any records with all medication providers or retail pharmacies. Education Materials Monitored Anesthesia Care, Care After These instructions provide you with information about caring for yourself after your procedure. Your health care provider may also give you more specific instructions. Your treatment has been plannedaccording to current medical practices, but problems sometimes occur. Call your health care provider if you have any problems or questions after your procedure. What can I expect after the procedure? After your procedure, you may: Feel sleepy for several hours. Feel clumsy and have poor balance for several hours. Feel forgetful about what happened after the procedure. Have poor judgment for several hours. Feel nauseous or vomit. Have a sore throat if you had a breathing tube during the procedure. Follow these instructions at home: For at least 24 hours after the procedure: Have a responsible adult stay with you. It is important to have someone help care for you until youare awake and alert. Rest as needed. Do not: ? Participate in activities in which you could fall or become injured. ? Drive. ? Use heavy machinery. ? Drink alcohol. ? Take sleeping pills or medicines that cause drowsiness. ? Make important decisions or sign legal documents. ? Take care of children on your own. Eating and drinking Follow the diet that is recommended by your health care provider. If you vomit, drink water, juice, or soup when you can drink without vomiting. Make sure you have little or no nausea before eating solid foods. General instructions Take cdmq-jze-lkkjiyz and prescription medicines only as told by your health care provider. If you have sleep apnea, surgery and certain medicines can increase your risk for breathing problems. Follow instructions from your health care provider about wearing your sleep device: ? Anytime you are sleeping, including during daytime naps. ? While taking prescription pain medicines, sleeping medicines, or medicines that make you drowsy. If you smoke, do not smoke without supervision. Keep all follow-up visits as told by your health care provider. This is important. Contact a health care provider if: You keep feeling nauseous or you keep vomiting. You feel light-headed. You develop a rash. You have a fever. Get help right away if: You have trouble breathing. Summary For several hours after your procedure, you may feel sleepy and have poor judgment. Have a responsible adult stay with you for at least 24 hours or until you are awake and alert. This information is not intended to replace advice given to you by your health care provider. Make sure you discuss any questions you have with your health care provider. Document Released: 06/25/2016 Document Revised: 06/03/2018 Document Reviewed: 06/25/2016 [employer] Patient Education 2020 [employer]. Colonoscopy, Adult, Care After This sheet gives you information about how to care for yourself after your procedure. Your health care provider may also give you more specific instructions. If you have problems or questions, contact your health care provider. What can I expect after the procedure? After the procedure, it is common to have: A small amount of blood in your stool for 24 hours after the procedure. Some gas. Mild abdominal cramping or bloating. Follow these instructions at home: General instructions For the first 24 hours after the procedure: ? Do not drive or use machinery. ? Do not sign important documents. ? Do not drink alcohol. ? Do your regular daily activities at a slower pace than normal. ? Eat soft, qmtj-ai-zgehhq foods. Take ykxv-qst-avvxuri or prescription medicines only as told by your health care provider. Relieving cramping and bloating Try walking around when you have cramps or feel bloated. Apply heat to your abdomen as told by your health care provider. Use a heat source that your healthcare provider recommends, such as a moist heat pack or a heating pad. ? Place a towel between your skin and the heat source. ? Leave the heat on for 20 30 minutes. ? Remove the heat if your skin turns bright red. This is especially important if you are unable to feel pain, heat, or cold. You may have a greater risk of getting burned. Eating and drinking Drink enough fluid to keep your urine pale yellow. Resume your normal diet as instructed by your health care provider. Avoid heavy or fried foods thatare hard to digest. Avoid drinking alcohol for as long as instructed by your health care provider. Contact a health care provider if: You have blood in your stool 2 3 days after the procedure. Get help right away if: You have more than a small spotting of blood in your stool. You pass large blood clots in your stool. Your abdomen is swollen. You have nausea or vomiting. You have a fever. You have increasing abdominal pain that is not relieved with medicine. Summary After the procedure, it is common to have a small amount of blood in your stool. You may also have mild abdominal cramping and bloating. For the first 24 hours after the procedure, do not drive or use machinery, sign important documents, or drink alcohol. Contact your health care provider if you have a lot of blood in your stool, nausea or vomiting, a fever, or increased abdominal pain. This information is not intended to replace advice given to you by your health care provider. Make sure you discuss any questions you have with your health care provider. Document Released: 10/17/2004 Document Revised: 12/26/2017 Document Reviewed: 05/16/2016 [employer] Patient Education 2020 [employer]. Additional Information VACCINATE! IT SAVES LIVES! Members of the community who have not yet received the COVID-19 vaccine and would like to receive it can visit one of [facility] vaccine clinics. There are many vaccine clinic locations within the [facility]. For locations and available times, please visit [email or web address].[place].[email or web address] It is important to note that some COVID mobile vaccine clinics are held outdoors and may be canceled in rainy or stormy conditions. To learn more about pediatric vaccinations (ages 5-11), we invite you to visit the [facility] webpage. [email or web address]/[email or web address] learn more about the COVID-19 vaccine, we invite you to visit the CDC website for a list of frequently asked questions.https://www.cdc.gov/coronavirus/2019-ncov/vaccines/faq.html [facility] Patient Portal Access Instructions: Stay connected with your healthcare team and access your personal medical information anytime with the [facility] Patient Portal. Please follow the directions below to create your [facility] account: 1.Access the email account you provided upon registration to the hospital/physician office.2.Look for an invitation email from [facility].3.Open the email and access the invitation link: AcceptInvitation to [facility].4.Fill in the required bain to create your account. To access your account, visit [employer]. Click the blue button labeled Access Patient Portal and then log in with the username and password that you created in the steps above. You will be able to view your test results, lab results, a summary of your visits, upcoming appointments and more. There is also a convenient messaging option where you can send secure messages to your [facility] [employer]. In addition, you will have the ability to download any documents or summaries to your computer and/or send the information securely to a physician. Remember that your healthcare information is confidential, so carefully consider who you will allowto register on the [facility] Patient Portal for access to your information. You can also access the [facility] Patient Portal on the [facility] [employer]a. Simply click on Patient Portal and then log into your account. If you would like to receive a full copy of your medical records, please contact the [facility] Medical Records Department by calling [phone], Sunday through Sunday between 8 a.m. and 4:30 p.m. HOW TO SAFELY DISPOSE OF PRESCRIPTION MEDICATIONS Please use one of the following methods to safely dispose of your unused medications. 1.Use a drug disposal kit: the drug disposal pouch allows you to safely discard your old and unuseddrugs. Ask your nurse to give you one when you are discharged.2.Visit a local take-back location: Many local pharmacies and police departments have programs that collect old and unwanted prescriptiondrugs. Call your local pharmacy or go to http://[employer].POKKT/4V1Bu0s to find one close to you.3.Make use of household items: Use cat litter or old coffee grounds to dispose medications if other options arenot available. Mix your drugs with these household products, seal them in an airtight container andthrow it into the garbage. Call [facility]: [phone] to be sure your drugs can be disposed of in this way. Some medicines may require a different approach.4.Never flush your medications down the toilet. IF YOU HAVE BEEN PRESCRIBED AN OPIOID FOR PAIN If you have been prescribed an opioid (such as hydrocodone, oxycodone or morphine), it is critical to understand the possible side effects and risks of opioid pain medications. Even when taken as directed, opioids can have several side effects including: Tolerance, meaning you might need to take more of a medication for the same pain relief. Nausea, vomiting and/or constipation. Sleepiness, dizziness, dry mouth, confusion, depression or itching. Physical dependence, meaning you have withdrawal symptoms when a medication is stopped, can develop within a few days. KNOW YOUR RESPONSIBILITIES It is important to know exactly how much and how often to take the opioid pain medications you are prescribed. Never take opioids in higher amounts or more often than prescribed. Do not combine opioids with alcohol or other drugs that cause drowsiness, such as benzodiazepines, also known as benzos, including diazepam and alprazolam, muscle relaxants or sleep aids. Never sell or share prescription opioids. This is illegal. Store opioids in a secure place and out of reach of others (including children, family, friends and visitors). The last page of this document has been signed and retained as a CHART COPY. Signatures Patient Education Materials Monitored Anesthesia Care, Care After Colonoscopy, Adult, Care After Medication Leaflets My discharge plan and instructions have been reviewed and explained to me and IERMIAS ANNE R understand my current condition and have read and understand these discharge instructions. I have received a written copy of the plan/instructions. If I have questions, I am aware that I should contact my doctor. Patient/Construction Project Coordinator Signature: Date/Time: Relationship to Patient: Witness Name/Signature: Date/Time: [facility]11-27-2024 Note Indication for Surgery Colorectal cancer screening Preoperative Diagnosis Colorectal cancer screening Postoperative Diagnosis Normal colon colonoscopy Operation Surgeon(s) Claudia Schneider D.O. Anesthesia MAC Estimated Blood Loss None Specimen(s) None Complications None Technique The patient was evaluated in the preoperative area and surgical consent was obtained. She is a rapid aspirin and monitored on pulse oximetry, cardiac monitoring and placed on supplemental oxygen. Shewas placed in left lateral decubitus position and a surgical timeout was obtained. Sedation was provided by anesthesia. A digital exam was unremarkable. The colonoscope was carefully inserted into the rectum advanced towards the cecum. Cecal pouch appeared normal. A 6-minute withdrawal was then performed with a good prep. Retroflexion in the rectum was normal. The scope was removed. Patient was then transferred to the recovery area in stable condition vital signs. Discharge summary: 1. Final Diagnosis: Normal colon 2. Outcome: Patient tolerated procedure well without complication 3. Disposition: Patient was discharged home to follow previous diet and medications 4. Follow-up care: Follow-up with primary care physician as scheduled. Repeat exam in 8 to 10 years Digitally Signed by CLAUDIA SCHNEIDER DO on 02/13/2024 08:02 AM [facility]11-27-2024 Anesthesiology Consult note Patient: ЮЛИЯ SEQUEIRA Age: 63 years Sex: Female : 1960 Associated Diagnoses: None Author: FELISHA LYNCH Preoperative Information Anesthesia history Patient's history: negative. Family's history: negative. Health Status Allergies: Allergic Reactions (Selected) NKA, Allergies (1) ActiveSeverityReaction NKANone Documented Current medications: (Selected) Inpatient Medications Ordered Lactated Ringers Infusion 1,000 mL: 20 mL/hr, Intravenous Prescriptions Prescribed Levoxyl 88 mcg (0.088 mg) oral tablet: 88 mcg, 1 tab(s), Oral, qDay, for 60 day(s), 60 tab(s), 0 Refill(s) liothyronine 5 mcg oral tablet: 10 mcg, 2 tab(s), Oral, qDay, for 90 day(s), 180 tab(s), 3 Refill(s) Documented Medications Documented estradiol 1 mg oral tablet: 1 mg, 1 tab(s), Oral, qDay, 30 tab(s), 0 Refill(s) progesterone 100 mg oral capsule: 0 Refill(s), Medications (1) Active Scheduled: (0) Continuous: (1) Lactated Ringers Infusion 1,000 mL 1,000 mL, Intravenous, 20 mL/hr PRN: (0) Problem list: Medical CKD (chronic kidney disease) stage 3, GFR 30-59 ml/min / SNOMED CT 7056030176 / Confirmed Attention deficit / SNOMED CT 561670541 / Confirmed H/O total thyroidectomy / SNOMED CT 2001109082 / Confirmed Hypothyroidism / SNOMED CT 25232252 / Confirmed Thyroid cancer / SNOMED CT 395539566 / Confirmed Colon cancer screening / SNOMED CT 448108147 / Confirmed Vitamin D toxicity / SNOMED CT 57035782 / Confirmed Vitamin D deficiency / SNOMED CT 12583863 / Confirmed, Active Problems (9) Attention deficit CKD (chronic kidney disease) stage 3, GFR 30-59 ml/min Colon cancer screening H/O total thyroidectomy Hypothyroidism Kidney failure Thyroid cancer Vitamin D deficiency Vitamin D toxicity Histories Family History: Cancer Father COPD - Chronic obstructive pulmonary disease Mother Kidney disease Mother Procedure history: Tonsillectomy and adenoidectomy (142723173). Thyroidectomy (38457337). Tubal ligation (759178261). Social History: Social & Psychosocial Habits Alcohol 01/09/2024 Use: Never Substance Abuse 01/09/2024 Use: Never Tobacco 01/09/2024 Tobacco Use: Never (less than 100 in l Exposure to Tobacco Smoke Lives in non-smoking home Home/Environment 01/09/2024 Other risks in environment: no current smoke exposure Nutrition/Health 01/09/2024 Caffeine intake amount: 1 serving daily Physical Examination Vital Signs 02/13/2024 7:16 EST Temperature Temporal Artery 36.3 DegC Peripheral Pulse Rate 58 bpm LOW Respiratory Rate 18 br/min Systolic Blood Pressure Non-Invasive 134 mmHg Diastolic Blood Pressure Non-Invasive 85 mmHg Vital Signs (last 24 hrs) Last Charted Temp Jnchigwk66.3 DegC (FEB 12 07:16) JMW675 mmHg (FEB 12 07:16) DBP85 mmHg (FEB 12 07:16) BMI23.81 (FEB 12 07:19) Measurements from flowsheet : Measurements 02/13/2024 7:19 EST Height 166.5 cm Admission Weight 66 kg Jennings Body Weight 58.27 kg BSA Admission 1.74 Body Mass Index 23.81 kg/m2 02/13/2024 7:16 EST Height 166.5 cm Admission Weight 66 kg Jennings Body Weight 58.27 kg Admission Body Mass Index 23.81 m2 Pain assessment: Pain Assessment 02/13/2024 7:16 EST Primary Pain Intensity 0 Pain Scale Type 0-10 Pain scale . General: Alert and oriented. Dentition Evaluation: Denies loose/chipped teeth. Respiratory: Lungs are clear to auscultation, Respirations are non-labored. Cardiovascular: Normal rate, Regular rhythm. Neurologic: Alert, Oriented. Review / Management Results review: No qualifying data available , Lab results 02/13/2024 7:31 EST Lactated Ringers Injection Begin Bag 1,000 mL mL 02/13/2024 7:30 EST Antecubital Right 20 gauge Peripheral IV Activity: Insert new site Peripheral IV Dressing Condition: Clean, Dry, Intact Peripheral IV Dressing Activity: Transparent dressing Peripheral IV Line Status/Patency: Continuous infusion Peripheral IV Site Condition: No complications Peripheral IV Number of Attempts: 1 02/13/2024 7:19 EST Designated Person #1 We May Share JOSE ALEJANDRO Sequeira [phone] Designated Person #1 Relationship Spouse Privacy Restrictions Requested None Height 166.5 cm Admission Weight 66 kg Jennings Body Weight 58.27 kg BSA Admission 1.74 Body Mass Index 23.81 kg/m2 Status No, per patient Sensory Deficits None Infectious Disease Symptoms Patient states no symptoms Infectious Disease Recent Exposure No Alcohol and Drug Use No Employee of Institutional Living No Health Care Employee No History of Exposure to TB No History of Positive Chest X-Ray for TB No History of Positive TB Skin Test No Homeless No Known Immunosuppression No Recent Immigrant No Resident of Institutional Living No Bloody Sputum No Fatigue No Fever No Loss of Appetite No Night Sweats No Persistent Cough > 3 Weeks No Weight Loss No Barriers to Learning None evident Teaching Method Demonstration Preferred Spoken Language Ukrainian Preferred Written Language Ukrainian Patient's Current Physicians Austyn Dozier Discharge To, Anticipated Home with family care Prev Test Positive/Diagnosis w/COVID-19 Yes Previous COVID-19 Positive Date 11/2023 Current Quarantine/Isolated any Illness No Any Contact with Sick Animals/Birds No Traveled Anywhere in Last 30 Days No No Personal Devices, Patient Valuables None Admission Note-Nursing Procedure/Therapy Intake 02/13/2024 7:16 EST Height 166.5 cm Admission Weight 66 kg Jennings Body Weight 58.27 kg Admission Body Mass Index 23.81 m2 Temperature Temporal Artery 36.3 DegC Peripheral Pulse Rate 58 bpm LOW Respiratory Rate 18 br/min Systolic Blood Pressure Non-Invasive 134 mmHg Diastolic Blood Pressure Non-Invasive 85 mmHg Primary Pain Intensity 0 Pain Scale Type 0-10 Pain scale Heart Rhythm Regular Respirations Unlabored Respiratory Pattern Regular Oxygen Therapy Room air Oxygen Saturation 98 % Abdomen Description Non-distended, Soft Bowel Sounds All Quadrants Present Skin Temperature Warm Skin Description [place] Mucous Membrane Color [place] Neurological Symptoms Patient denies Characteristics of Speech Clear Level of Consciousness Alert Affect/Behavior Appropriate, Calm, Cooperative Orientation Oriented x 4 Standard Safety ID band on, Call device within reach, Bed in low position, Wheels locked 02/13/2024 7:09 EST IV Present Present Allergies Yes Consent Form Signed Yes Patient Dressed In Hospital gown History & Physical Update On Chart Yes History & Physical On Chart Yes Belongings At Bedside Pants, Shirt, Shoes Personal Home Medications Received No home medications were brought in NPO Status Maintained Patient ID Band on and Verified Yes Implants Verified Yes Pacemaker/AICD Verified Yes Site Verified by Patient/Family Yes Anesthesia Consent Signed Yes Last Fluid Intake 02/13/2024 5:30 Last Food Intake 02/11/2024 19:00 02/13/2024 7:08 [facility] History and Physical . Assessment and Plan [place] [employer] Anesthesiologists (ASA) physical status classification: Class II. Anesthetic Preoperative Plan Anesthetic technique: MAC. Postoperative pain management: Per surgeon. Risks discussed: serious complications. Informed consent: signed by patient. Digitally Signed by FELISHA LYNCH APRN-YUSUF on 02/13/2024 07:43 AM [facility]11-27-2024 Note [facility] ADMISSION HISTORY AND PHYSICIAL CHIEF COMPLAINT: Colorectal cancer screening HISTORY OF PRESENT ILLNESS: Colorectal cancer screening REVIEW OF SYSTEMS: Constitutional: denies weight loss Cardiovascular:denies chest pain, palpitations Respiratory:denies shortness of breath Gastrointestinal:no abd pain Musculoskeletal: no arthralgias Skin: no rashes ACTIVE PROBLEMS: (9) Attention deficit (808114539) CKD (chronic kidney disease) stage 3, GFR 30-59 ml/min (8675237650) Colon cancer screening (710599068) H/O total thyroidectomy (6093701981) Hypothyroidism (61302998) Kidney failure (79134238) Thyroid cancer (328686666) Vitamin D deficiency (13349960) Vitamin D toxicity (80734804) MEDICATIONS: Active Inpt Meds: None Active PRN Meds: None One Time Meds: None Active IV Meds: None ALLERGIES: (1) NKA FAMILY HISTORY: SOCIAL HISTORY: PHYSICAL EXAM: VITALS: No Data Available 24 Hr Tmax: No Data Available 36 Hr Tmax: No Data Available Vital Signs are the last 5 in the past 48 hours. Weights display the last 5 within 7 days. Initial Wt: No Data Available Current Wt: No Data Available physical exam alert and oriented cardio; regular without murmur pulm; clear abd; soft, nontender LABS: No 36hr Lab Data DIAGNOSTICS: IMPRESSION: Colorectal cancer screening PLAN: Colonoscopy as discussed in the office Digitally Signed by CLAUDIA SCHNEIDER DO on 02/13/2024 07:09 AM [facility]10-27-2024 Evaluation + Plan note Future Scheduled Tests Laboratory* Creatinine Random Urine 01/13/24 * Protein Random Urine 01/13/24 * Ratio Prot/Creat Urine 01/13/24 [facility] 10-03-2024 Telephone encounter Note* Telephone Encounter - Jerrica Birmingham RN - 12/20/2023 4:38 PM EDT Patient seen in office on 12/12. Orders pended with updated pharmacy. Jerrica Birmingham RN [facility]10-03-2024 Miscellaneous Notes* Telephone Encounter - Jerrica Birmingham RN - 12/20/2023 4:38 PM EDT Patient seen in office on 12/12. Orders pended with updated pharmacy. Jerrica Birmingham RN [facility] Telephone encounter Note * Telephone Encounter - Jerrica Birmingham RN - 12/17/2023 11:11 AM EDT Patient notified and voiced understanding. Jerrica Birmingham RN [facility]09-30-2024 Miscellaneous Notes* Telephone Encounter - Jerrica Birmingham RN - 12/17/2023 11:11 AM EDT Patient notified and voiced understanding. Jerrica Birmingham RN * Telephone Encounter - Jerrica Birmingham RN - 12/17/2023 10:53 AM EDT Left message to call office. Jerrica Birmingham RN * Telephone Encounter - Aileen Siddiqui APRN.CNP - 12/17/2023 10:27 AM EDT It to far out for the onset of symptoms to order anything. It needs to be within the 1st 5 days from the onset of symptoms. Aileen Siddiqui APRN.CNP * Telephone Encounter - Jerrica Birmingham RN - 12/17/2023 9:48 AM EDT Patient calling stating she took a COVID test on 12/13 and it was positive. Patient was in the office on 12/12 for an annual exam. Patient asking if Aileen would be able to prescribe her anything for her symptoms. Questioned patient as to when symptoms start and she believes it was last 12/09. On Sunday she started with sneezing and then coughing. Feels like symptoms were at there worst on Sunday. Today she just feel like her chest is very heavy. Instructed patient that since hersymptoms started a week ago, treatment may not be indicated. Jerrica Birmingham RN documented in [facility] encounterAs[facility] Telephone encounter Note * Telephone Encounter - Jerrica Birmingham RN - 12/17/2023 10:53 AM EDT Left message to call office. Jerrica Birmingham RN [facility]09-30-2024 Telephone encounter Note* Telephone Encounter - Aileen Siddiqui APRN.CNP - 12/17/2023 10:27 AM EDT It to far out for the onset of symptoms to order anything. It needs to be within the 1st 5 days from the onset of symptoms. Aileen Siddiqui APRN.CNP [facility]09-30-2024 Telephone encounter Note* Telephone Encounter - Jerrica Birmingham RN - 12/17/2023 9:48 AM EDT Patient calling stating she took a COVID test on 12/13 and it was positive. Patient was in the office on 12/12 for an annual exam. Patient asking if Aileen would be able to prescribe her anything for her symptoms. Questioned patient as to when symptoms start and she believes it was last 12/09. On Sunday she started with sneezing and then coughing. Feels like symptoms were at there worst on Sunday. Today she just feel like her chest is very heavy. Instructed patient that since hersymptoms started a week ago, treatment may not be indicated. Jerrica Birmingham RN [facility]09-26-[facility] History of Present illness Narrative* Aileen Siddiqui BARREL SCRAPER.ASSISTANT PROFESSOR OF ANTHROPOLOGY - 12/13/2023 3:43 PM EDT Routing Machine Operator offered: Patient declines. Юлия is a 63 year old who presents for an annual gynecologic exam with complaints, would like to wean off the celexa . Postmenopausal: Yes HRT use: Yes, estrogen, progesterone, & testosterone How long: since 2014. Last Pap: 10/05/2022 normal HPV: 10/04/2022 positive History of abnormal pap: Yes Last mammogram: 2021 normal History of abnormal mammogram: Yes Sexually active: Yes Pain with intercourse: No Postcoital bleeding: No OB History T1 L1 SAB1 IAB0 Ectopic0 Multiple0 Live Births1 Comment: menarche [facility] Provider Network Mgr History LMP: 02/11/2006, Ablation Age at Menarche: Age at First : Age at Menopause: Provider Network Mgr History Comments: Sexual Activity: Yes; Male Contraception: Surgical, Tubal Ligation PAST MEDICAL HISTORY Diagnosis Date Depression 07/06/2016 Elevated serum creatinine 1.21 Headache disorder 07/06/2016 Hormone replacement therapy (HRT) Leukopenia, unspecified type Malignant neoplasm of thyroid gland (HCC) 10/29/2017 radiation meopause hx of ablation 09/10/2018 Other abnormal Papanicolaou smear of cervix and cervical HPV(795.09) 2000 cryo/other facility Postablative hypothyroidism 07/06/2016 Renal insufficiency 2017 Thyroid cancer (HCC) 07/06/2016 Vitamin D deficiency 07/06/2016 PAST SURGICAL HISTORY Procedure Laterality Date HYSTEROSCOPY ENDOMETRIAL ABLATION LIG/TRNSXJ FLP TUBE ABDL/VAG APPR UNI/BI THYROIDECTOMY TOTAL/COMPLETE 2004 total FAMILY HISTORY Problem Relation Age of Onset Diabetes Paternal Grandmother other (goiter) Paternal Grandmother great grandmother SOCIAL HISTORY Social History Tobacco Use Smoking status: Never Smokeless tobacco: Never Vaping Use Vaping status: Never Used Substance Use Topics Alcohol use: Not Currently Drug use: No REVIEW OF SYSTEMS Abdomen: No abdominal pain, nausea, vomiting, diarrhea, or constipation. No bloating, early satiety, indigestion, or increased flatulence. Bladder: No dysuria, gross hematuria, urinary frequency, urinary urgency, +stress incontinence Breast: No breast lumps, nipple d/c, overlying skin changes, redness or skin retraction Allergies and current medication updated:Yes SENSITIVE EXAM: The sensitive examination was discussed with the Patient or Patient's Authorized Construction Project Coordinator. As applicable, any other physician, advance practice provider, medical student, or other health professional student that will be observing or involved in the sensitive examination for educational or training purposes was discussed with the Patient or Authorized Construction Project Coordinator. The Patient or Authorized Construction Project Coordinator has agreed to proceed with the sensitive examination. (Sensitive examination includes inspection and/or palpation of the breasts, pelvis, prostate and anorectal regions). EXAM: BP 100/62 Ht 5' 6.614 (1.69m) Wt 145 lb (65.8kg) LMP 02/11/2006 BMI 22.97 kg/(m^2). GENERAL: pleasant, female in no apparent distress HEENT: Normocephalic, atraumatic, mucus membranes moist, and no lesions NECK: Supple, full range of motion, no adenopathy, and thyroid normal DERMATOLOGY: Normal, without lesions, non-icteric, and non-hirsute BREAST: soft, non-tender, symmetric, no dominant mass, normal nipple-areolar complex, no lymphadenopathy, and no nipple discharge CHEST: Normal inspiratory effort ABDOMEN: soft, non-tender, and no masses PELVIC: external genitalia normal, normal Bartholin's glands, urethra, Brunson's glands, no vulvar lesions, no cervical lesions, physiologic discharge present, normal appearing perineal body and perianal region BIMANUAL: uterus normal size, shape and consistency, no adnexal masses, and non-tender RECTOVAGINAL: deferred. NEURO: alert and oriented x3,exam grossly non-focal EXTREMITIES: normal ASSESSMENT/PLAN: 1) Health maintenance: Pap done with HPV. Mammogram ordered Nutrition, exercise and routine health maintenance exams reviewed. Calcium/Vitamin D supplementation information provided. Colon cancer screening: patient to discuss with PCP BMD: N/A 2) Follow up one year or sooner as needed Pt was given instruction on weaning off Celexa and to call with any issues. Aileen Siddiqui APRN.CNP documented in this encounterAshtabula [facility]09-[facility]-2024 NoteHNO ID: [id number] Author: AILEEN SIDDIQUI APRN.CNP Service: ? Author Type: Nurse Practitioner Type: Progress Notes Filed: 12/13/2023 16:48 Note Text: Routing Machine Operator offered: Patient declines. Юлия is a 63 year old who presents for an annual gynecologic exam with complaints, would like to wean off the celexa . Postmenopausal: Yes HRT use: Yes, estrogen, progesterone, AND testosterone How long: since 2014. Last Pap: 10/05/2022 normal HPV: 10/04/2022 positive History of abnormal pap: Yes Last mammogram: 2021 normal History of abnormal mammogram: Yes Sexually active: Yes Pain with intercourse: No Postcoital bleeding: No OB History T1 L1 SAB1 IAB0 Ectopic0 Multiple0 Live Births1 Comment: menarche [facility] Provider Network Mgr History LMP: 02/11/2006, Ablation Age at Menarche: Age at First : Age at Menopause: Provider Network Mgr History Comments: Sexual Activity: Yes; Male Contraception: Surgical, Tubal Ligation PAST MEDICAL HISTORY Diagnosis Date Depression 07/06/2016 Elevated serum creatinine 1.21 Headache disorder 07/06/2016 Hormone replacement therapy (HRT) Leukopenia, unspecified type Malignant neoplasm of thyroid gland (HCC) 10/29/2017 radiation meopause hx of ablation 09/10/2018 Other abnormal Papanicolaou smear of cervix and cervical HPV(795.09) 2000 cryo/other facility Postablative hypothyroidism 07/06/2016 Renal insufficiency 2017 Thyroid cancer (HCC) 07/06/2016 Vitamin D deficiency 07/06/2016 PAST SURGICAL HISTORY Procedure Laterality Date HYSTEROSCOPY ENDOMETRIAL ABLATION LIG/TRNSXJ FLP TUBE ABDL/VAG APPR UNI/BI THYROIDECTOMY TOTAL/COMPLETE 2004 total FAMILY HISTORY Problem Relation Age of Onset Diabetes Paternal Grandmother other (goiter) Paternal Grandmother great grandmother SOCIAL HISTORY Social History Tobacco Use Smoking status: Never Smokeless tobacco: Never Vaping Use Vaping status: Never Used Substance Use Topics Alcohol use: Not Currently Drug use: No REVIEW OF SYSTEMS Abdomen: No abdominal pain, nausea, vomiting, diarrhea, or constipation. No bloating, early satiety, indigestion, or increased flatulence. Bladder: No dysuria, gross hematuria, urinary frequency, urinary urgency, +stress incontinence Breast: No breast lumps, nipple d/c, overlying skin changes, redness or skin retraction Allergies and current medication updated:Yes SENSITIVE EXAM: The sensitive examination was discussed with the Patient or Patient's Authorized Construction Project Coordinator. As applicable, any other physician, advance practice provider, medical student, or other health professional student that will be observing or involved in the sensitive examination for educational or training purposes was discussed with the Patient or Authorized Construction Project Coordinator. The Patient or Authorized Construction Project Coordinator has agreed to proceed with the sensitive examination. (Sensitive examination includes inspection and/or palpation of the breasts, pelvis, prostate and anorectal regions). EXAM: BP 100/62 Ht 5' 6.614 (1.69m) Wt 145 lb (65.8kg) LMP 02/11/2006 BMI 22.97 kg/(m2). GENERAL: pleasant, female in no apparent distress HEENT: Normocephalic, atraumatic, mucus membranes moist, and no lesions NECK: Supple, full range of motion, no adenopathy, and thyroid normal DERMATOLOGY: Normal, without lesions, non-icteric, and non-hirsute BREAST: soft, non-tender, symmetric, no dominant mass, normal nipple-areolar complex, no lymphadenopathy, and no nipple discharge CHEST: Normal inspiratory effort ABDOMEN: soft, non-tender, and no masses PELVIC: external genitalia normal, normal Bartholin's glands, urethra, Brunson's glands, no vulvar lesions, no cervical lesions, physiologic discharge present, normal appearing perineal body and perianal region BIMANUAL: uterus normal size, shape and consistency, no adnexal masses, and non-tender RECTOVAGINAL: deferred. NEURO: alert and oriented x3,exam grossly non-focal EXTREMITIES: normal ASSESSMENT/PLAN: 1) Health maintenance: Pap done with HPV. Mammogram ordered Nutrition, exercise and routine health maintenance exams reviewed. Calcium/Vitamin D supplementation information provided. Colon cancer screening: patient to discuss with PCP BMD: N/A 2) Follow up one year or sooner as needed Pt was given instruction on weaning off Celexa and to call with any issues. Aileen Siddiqui APRN.[facility]24 Telephone encounter Note* Telephone Encounter - Jerrica Birmingham RN - 11/20/2023 3:58 PM EDT Patient calling requesting a refill on her testosterone cream as she is almost out of the medication and her annual exam is not until 12/12. Patient last seen 09/29/22. Jerrica Birmingham RN [facility]09-03-2024 Miscellaneous Notes* Telephone Encounter - Jerrica Birmingham RN - 11/20/2023 3:58 PM EDT Patient calling requesting a refill on her testosterone cream as she is almost out of the medication and her annual exam is not until 12/12. Patient last seen 09/29/22. Jerrica Birmingham RN documented in this encounterAs[facility]06-20-2024 Telephone encounter Note * Telephone Encounter - Jackie Desouza LPN - 09/06/2023 9:43 AM EDT See pharmacy generated refill request below. Pt has scheduled yearly exam. Please advise. Jackie Desouza LPN [facility]06-20-2024 Miscellaneous Notes* Telephone Encounter - Jackie Desouza LPN - 09/06/2023 9:43 AM EDT See pharmacy generated refill request below. Pt has scheduled yearly exam. Please advise. Jackie Desouza LPN documented in this encounterAshtabula [facility]07-14-2023 History of Present illness Narrative* Aileen Siddiqui APRN.ASSISTANT PROFESSOR OF ANTHROPOLOGY - 09/29/2022 4:00 PM EDT Routing Machine Operator offered: Patient declines. Юлия is a 61 year old who presents for an annual gynecologic exam without complaints. Postmenopausal: Yes HRT use: Yes, estrogen, progesterone, & testosterone How long: since 2014. Last Pap: 01/31/2018 normal HPV: 01/29/2018 negative History of abnormal pap: No Last mammogram: 2021 normal History of abnormal mammogram: Yes Sexually active: Yes Pain with intercourse: No Postcoital bleeding: No OB History T1 L1 SAB1 IAB0 Ectopic0 Multiple0 Live Births1 Comment: menarche [facility] Provider Network Mgr History LMP: 02/11/2006, Ablation Age at Menarche: Age at First : Age at Menopause: Provider Network Mgr History Comments: Sexual Activity: Not Currently; Male Contraception: Surgical, Tubal Ligation PAST MEDICAL HISTORY Diagnosis Date Depression 07/06/2016 Elevated serum creatinine 1.21 Headache disorder 07/06/2016 Hormone replacement therapy (HRT) Malignant neoplasm of thyroid gland (HCC) 10/29/2017 radiation meopause hx of ablation 09/10/2018 Other abnormal Papanicolaou smear of cervix and cervical HPV(795.09) 2000 cryo/other facility Postablative hypothyroidism 07/06/2016 Renal insufficiency 2017 Thyroid cancer (HCC) 07/06/2016 Vitamin D deficiency 07/06/2016 PAST SURGICAL HISTORY Procedure Laterality Date HYSTEROSCOPY ENDOMETRIAL ABLATION LIG/TRNSXJ FLP TUBE ABDL/VAG APPR UNI/BI THYROIDECTOMY TOTAL/COMPLETE 2004 total FAMILY HISTORY Problem Relation Age of Onset Diabetes Paternal Grandmother other (goiter) Paternal Grandmother great grandmother SOCIAL HISTORY Social History Tobacco Use Smoking status: Never Smokeless tobacco: Never Vaping Use Vaping Use: Never used Substance Use Topics Alcohol use: Not Currently Drug use: No REVIEW OF SYSTEMS Abdomen: No abdominal pain, nausea, vomiting, diarrhea, or constipation. No bloating, early satiety, indigestion, or increased flatulence. Bladder: No dysuria, gross hematuria, urinary frequency, urinary urgency, or incontinence Breast: No breast lumps, nipple d/c, overlying skin changes, redness or skin retraction Allergies and current medication updated:Yes EXAM: LMP 02/11/2006 GENERAL: pleasant, female in no apparent distress HEENT: Normocephalic, atraumatic, mucus membranes moist, and no lesions NECK: Supple, full range of motion, no adenopathy, and thyroid normal DERMATOLOGY: Normal, without lesions, non-icteric, and non-hirsute BREAST: soft, non-tender, symmetric, no dominant mass, normal nipple-areolar complex, no lymphadenopathy, and no nipple discharge CHEST: Normal inspiratory effort ABDOMEN: soft, non-tender, and no masses PELVIC: external genitalia normal, normal Bartholin's glands, urethra, Brunson's glands, no vulvar lesions, no cervical lesions, physiologic discharge present, normal appearing perineal body and perianal region BIMANUAL: uterus normal size, shape and consistency, no adnexal masses, and non-tender RECTOVAGINAL: deferred. NEURO: alert and oriented x3,exam grossly non-focal EXTREMITIES: normal ASSESSMENT/PLAN: 1) Health maintenance: Pap done with HPV. Mammogram ordered Nutrition, exercise and routine health maintenance exams reviewed. Calcium/Vitamin D supplementation information provided. Colon cancer screening: GI referral for colonoscopy 2) Follow up one year or sooner as needed Aileen Siddiqui APRN.ASSISTANT PROFESSOR OF ANTHROPOLOGY documented in this encounterAsht[facility]ula [facility]10-12-2022 Instructions* Patient Instructions* Bennett Carpio MD - 12/28/2021 1:32 PM EDT Gargle, lozenges OTC med as needed Avoid NSAIDs Recheck if any change F/u PCP for evaluation and care Also see your kidney doctor for but you are concerned of the kidney function explained details Patient understood documented in this encounterAshtabula [facility]10-12-2022 History of Present illness Narrative* Bennett Carpio MD - 12/28/2021 1:23 PM EDT Юлия Sequeira is a 61 year old FEMALE who presents with Sinusitis (Headache, sinus congestion, 3 weeks ----right side flank pain-maybe from coughing and blowing nose) Cough congestion sinus pressure pain for the last 3 weeks She feels and drainage Bvyk-ddf-fczeovd medicine not helping No shortness of breath No fever She also has some right back pain Which she thinks could be from coughing Denies any dysuria no blood in the urine She stated that she has abnormal kidney function And has seen lumber mover PAST MEDICAL HISTORY Diagnosis Date Elevated serum creatinine 1.21 Hormone replacement therapy (HRT) Malignant neoplasm of thyroid gland (HCC) radiation meopause hx of ablation Other abnormal Papanicolaou smear of cervix and cervical HPV(795.09) 2000 cryo/other facility Renal insufficiency 2017 ACTIVE PROBLEM LIST Malignant Neoplasm of Thyroid Gland (Hcc) Postablative Hypothyroidism Thyroid Cancer (Hcc) Depression Headache Disorder Post-Menopause On Hrt (Hormone Replacement Therapy) Vitamin D Deficiency Encounter for Screening for Malignant Neoplasm of Colon meopause hx of ablation Elevated Serum Creatinine Hormone Replacement Therapy (Hrt) Current Outpatient Medications Medication Sig Dispense Refill levothyroxine (SYNTHROID) 100 mcg tablet Dose : 100 mcg = 1 tab(s), Oral, qDay, # 90 tab(s), 3 Refill(s), Pharmacy: [facility], 167.6, cm, 09/08/20 15:44:00 EDT, Height, kg, 09/08/20 15:44:00 EDT, Dosing Weight albuterol HFA (PROVENTIL HFA, VENTOLIN HFA) 90 mcg/actuation inhaler Inhale 2 Puffs as instructed every 4 hours as needed for wheezing/shortness of breath. 1 Inhaler 0 [id number]-[id number]-[id number]-OREG-CAPRYL ORAL Take by mouth. B6/folic/B12/coffee/phosphatid (NEURIVA PLUS ORAL) Take by mouth. gummy testosterone in cream base (CPD) Apply 1 g to affected area once daily. Comments for compounding pharmacy: Testosterone cream 25MG/2.5Gm 1 Each 1 progesterone micronized (PROMETRIUM) 100 mg capsule Take 1 capsule by mouth once daily. 90 capsule 3 citalopram (CELEXA) 20 mg tablet Take 1 tablet by mouth once daily. 90 tablet 3 estradiol (ESTRACE) 1 mg tablet Take 1 tablet by mouth once daily. 90 tablet 3 liothyronine (CYTOMEL) 5 mcg tablet Take 1 tablet by mouth once daily. 90 tablet 3 calcium carb,gluc/mag ox,gluc (CALCIUM MAGNESIUM ORAL) Take by mouth. COMPOUNDED PRESCRIPTION Testosterone 25MG/2.5 GM Cream Apply 1 Gram (4 Clicks) Topically Every Day As Directed 1 Tube 2 azithromycin (ZITHROMAX Z-SHELLEY) 250 mg tablet 2 tablets by mouth first day then 1 tablet the next 4 days (Patient not taking: Reported on 12/28/2021) 6 tablet 0 methylPREDNISolone (MEDROL, SHELLEY,) 4 mg Dose-Pack Take by mouth per package instructions (Patient not taking: Reported on 12/28/2021) 1 Package 0 levothyroxine (SYNTHROID) 88 mcg tablet Take 1 tablet by mouth once daily. (Patient not taking: No sig reported) 90 tablet 3 No current facility-administered medications for this visit. Social History Tobacco Use Smoking status: Never Smokeless tobacco: Never Vaping Use Vaping Use: Never used Substance Use Topics Alcohol use: Not Currently Drug use: No Alcohol Use: Not Currently Tobacco Use: Never FAMILY HISTORY Problem Relation Age of Onset Diabetes Paternal Grandmother other (goiter) Paternal Grandmother great grandmother Review of Systems Constitutional: Negative. HENT: Positive for congestion and sinus pain. Respiratory: Positive for cough. Musculoskeletal: Positive for back pain. BP 116/70 Pulse 67 Temp 97.8 Resp 16 Wt 140 lb (63.5kg) SpO2 98% LMP 02/11/2006 Physical Exam Vitals reviewed. Constitutional: Appearance: Normal appearance. HENT: Nose: Congestion present. Comments: Moderate paranasal sinus tenderness Mouth/Throat: Mouth: Mucous membranes are moist. Pharynx: Oropharynx is clear. Comments: Mild postnasal drip Cardiovascular: Rate and Rhythm: Normal rate and regular rhythm. Heart sounds: Normal heart sounds. Pulmonary: Effort: Pulmonary effort is normal. Breath sounds: Normal breath sounds. Musculoskeletal: Cervical back: Normal range of motion and neck supple. No rigidity or tenderness. Comments: Mild discomfort in the right paralumbar area Neurological: Mental Status: She is alert. ASSESSMENT/PLAN: 1. Acute maxillary sinusitis, recurrence not specified - ICD9: 461.0, ICD10: J01.00 - AMOXICILLIN 875 MG TABLET Explained to patient that regarding kidney function and wanted to follow-up with her lumber mover for evaluation and care. She did not have any acute urinary symptoms I did not check a urine Gargle, lozenges OTC med as needed Avoid NSAIDs Recheck if any change F/u PCP for evaluation and care Also see your kidney doctor for but you are concerned of the kidney function explained details Patient understood Bennett Carpio MD documented in this encounterAshtabula [facility]07-22-2022 Miscellaneous Notes* Telephone Encounter - Jerrica Birmingham RN - 10/07/2021 9:08 AM EDT Patient notified of results, verbalizes understanding of instructions. Jerrica Birmingham RN * Telephone Encounter - Aileen Siddiqui APRN.CNP - 10/07/2021 7:35 AM EDT Please let the pt know that she needs to follow up with the PCP for the decrease in kidney functionbased on her labs. Her testosterone is also high and she should cut her dose in half. Aileen Siddiqui APRN.CNP documented in this encounterAshtabula [facility]07-07-2022 NoteHNO ID: [id number] Author: RT Edwar(R) Service: ? Author Type: Technologist Type: Progress Notes Filed: 09/22/2021 11:37 AM Note Text: Radiology Service Progress Note PATIENT NAME: Юлия Sequeira DATE OF SERVICE: September 22, 2021 TIME: 11:37 AM PATIENT IDENTITY VERIFICATION COMPLETED USING TWO (2) IDENTIFIERS: Name and Date of confirmed by patient verbally. FALL SCREENING: Has the patient had 2 falls in the last year or 1 fall with injury or currently using an Ambulatory Assistive Device (Walker, Cane, Wheelchair, Crutches, etc.)? No PATIENT GENDER DATA: Female. status: : No status: NO. PATIENT RELEVANT IMPLANT DATA REVIEWED: Not Applicable RADIOLOGY DEPARTMENT: General X-ray: Exam(s) Completed: Chest X-Ray PERIPHERAL IV DATA: Not applicable SIGNED BY: RT Edwar(R) September 22, 2021 11:37 [facility]egacy [facility]07-07-2022 NoteHNO ID: [id number] Author: Bennett Carpio MD Service: ? Author Type: Physician Type: Progress Notes Filed: 09/22/2021 11:28 AM Note Text: Юлия Sequeira is a 60 year old FEMALE who presents with Cough (chest discomfort/ tightness--4 days) Coughing 4 days , chest hurts when cough Fever, SOB PAST MEDICAL HISTORY Diagnosis Date - Elevated serum creatinine 1.21 - Hormone replacement therapy (HRT) - Malignant neoplasm of thyroid gland (HCC) radiation - meopause hx of ablation - Other abnormal Papanicolaou smear of cervix and cervical HPV(795.09) 2000 cryo/other facility - Renal insufficiency 2016 ACTIVE PROBLEM LIST Malignant Neoplasm of Thyroid Gland (Hcc) Postablative Hypothyroidism Thyroid Cancer (Hcc) Depression Headache Disorder Post-Menopause On Hrt (Hormone Replacement Therapy) Vitamin D Deficiency Encounter for Screening for Malignant Neoplasm of Colon meopause hx of ablation Elevated Serum Creatinine Hormone Replacement Therapy (Hrt) Current Outpatient Medications Medication Sig Dispense Refill - levothyroxine (SYNTHROID) 100 mcg tablet Dose : 100 mcg = 1 tab(s), Oral, qDay, # 90 tab(s), 3 Refill(s), Pharmacy: [facility], 167.6, cm, 09/08/20 15:44:00 EDT, Height, kg, 09/08/20 15:44:00 EDT, Dosing Weight - [id number]-ULGU-FCKHF-OREG-CAPRYL ORAL Take by mouth. - B6/folic/B12/coffee/phosphatid (NEURIVA PLUS ORAL) Take by mouth. gummy - testosterone in cream base (CPD) Apply 1 g to affected area once daily. Comments for compounding pharmacy: Testosterone cream 25MG/2.5Gm 1 Each 1 - progesterone micronized (PROMETRIUM) 100 mg capsule Take 1 capsule by mouth once daily. 90 capsule 3 - citalopram (CELEXA) 20 mg tablet Take 1 tablet by mouth once daily. 90 tablet 3 - estradiol (ESTRACE) 1 mg tablet Take 1 tablet by mouth once daily. 90 tablet 3 - liothyronine (CYTOMEL) 5 mcg tablet Take 1 tablet by mouth once daily. 90 tablet 3 - calcium carb,gluc/mag ox,gluc (CALCIUM MAGNESIUM ORAL) Take by mouth. - COMPOUNDED PRESCRIPTION Testosterone 25MG/2.5 GM Cream Apply 1 Gram (4 Clicks) Topically Every Day As Directed 1 Tube 2 - levothyroxine (SYNTHROID) 88 mcg tablet Take 1 tablet by mouth once daily. (Patient not taking: Reported on 09/22/2021 ) 90 tablet 3 No current facility-administered medications for this visit. Social History Tobacco Use - Smoking status: Never Smoker - Smokeless tobacco: Never Used Vaping Use - Vaping Use: Never used Substance Use Topics - Alcohol use: Not Currently - Drug use: No Alcohol Use: Not Currently Tobacco Use: Never FAMILY HISTORY Problem Relation Age of Onset - Diabetes Paternal Grandmother - other (goiter) Paternal Grandmother great grandmother Review of Systems Constitutional: Positive for fever and malaise/fatigue. Respiratory: Positive for cough. Chest hurts on coughing Cardiovascular: Negative. Gastrointestinal: Negative. BP 106/65 Pulse 61 Temp 98.7 Resp 16 Wt 137 lb (62.1kg) SpO2 95% LMP 02/11/2006 Physical Exam Vitals reviewed. Constitutional: Appearance: Normal appearance. HENT: Nose: Nose normal. Mouth/Throat: Mouth: Mucous membranes are moist. Pharynx: Oropharynx is clear. Cardiovascular: Rate and Rhythm: Normal rate and regular rhythm. Pulmonary: Effort: Pulmonary effort is normal. No respiratory distress. Breath sounds: Rhonchi present. Neurological: Mental Status: She is alert. ASSESSMENT/PLAN: 1. Acute cough - ICD9: 786.2, ICD10: R05.1 (primary diagnosis) - XR CHEST 2V FRONTAL/LAT 2. Acute bronchitis, unspecified organism - ICD9: 466.0, ICD10: J20.9 - AZITHROMYCIN 250 MG TABLET - ALBUTEROL SULFATE HFA 90 MCG/ACTUATION AEROSOL INHALER - METHYLPREDNISOLONE 4 MG TABLETS IN A DOSE PACK Bennett Carpio [facility]07-07-2022 Instructions* Patient Instructions* Bennett Carpio MD - 09/22/2021 11:27 AM EDT Fluids, f/u PCP Recheck if any change Explained details To ER if get worse OTC med as needed documented in this encounterAshtabula [facility]07-07-2022 History of Present illness Narrative* Paolo Duarte RT(R) - 09/22/2021 11:20 AM EDT Radiology Service Progress Note PATIENT NAME: Юлия Sequeira DATE OF SERVICE: September 22, 2021 TIME: 11:37 AM PATIENT IDENTITY VERIFICATION COMPLETED USING TWO (2) IDENTIFIERS: Name and Date of confirmedby patient verbally. FALL SCREENING: Has the patient had 2 falls in the last year or 1 fall with injury or currently using an Ambulatory Assistive Device (Walker, Cane, Wheelchair, Crutches, etc.)? No PATIENT GENDER DATA: Female. status: : No status: NO. PATIENT RELEVANT IMPLANT DATA REVIEWED: Not Applicable RADIOLOGY DEPARTMENT: General X-ray: Exam(s) Completed: Chest X-Ray PERIPHERAL IV DATA: Not applicable SIGNED BY: RT Edwar(R) September 22, 2021 11:37 AM documented in this encounterAshtabula [facility]07-07-2022 History of Present illness Narrative* Bennett Carpio MD - 09/22/2021 10:55 AM EDT Юлия Sequeira is a 60 year old FEMALE who presents with Cough (chest discomfort/ tightness--4 days) Coughing 4 days , chest hurts when cough Fever, SOB PAST MEDICAL HISTORY Diagnosis Date Elevated serum creatinine 1.21 Hormone replacement therapy (HRT) Malignant neoplasm of thyroid gland (HCC) radiation meopause hx of ablation Other abnormal Papanicolaou smear of cervix and cervical HPV(795.09) 2000 cryo/other facility Renal insufficiency 2017 ACTIVE PROBLEM LIST Malignant Neoplasm of Thyroid Gland (Hcc) Postablative Hypothyroidism Thyroid Cancer (Hcc) Depression Headache Disorder Post-Menopause On Hrt (Hormone Replacement Therapy) Vitamin D Deficiency Encounter for Screening for Malignant Neoplasm of Colon meopause hx of ablation Elevated Serum Creatinine Hormone Replacement Therapy (Hrt) Current Outpatient Medications Medication Sig Dispense Refill levothyroxine (SYNTHROID) 100 mcg tablet Dose : 100 mcg = 1 tab(s), Oral, qDay, # 90 tab(s), 3 Refill(s), Pharmacy: [facility], 167.6, cm, 09/08/20 15:44:00 EDT, Height, kg, 09/08/20 15:44:00 EDT, Dosing Weight [id number]-[id number]-IRPDP-OREG-CAPRYL ORAL Take by mouth. B6/folic/B12/coffee/phosphatid (NEURIVA PLUS ORAL) Take by mouth. gummy testosterone in cream base (CPD) Apply 1 g to affected area once daily. Comments for compounding pharmacy: Testosterone cream 25MG/2.5Gm 1 Each 1 progesterone micronized (PROMETRIUM) 100 mg capsule Take 1 capsule by mouth once daily. 90 capsule 3 citalopram (CELEXA) 20 mg tablet Take 1 tablet by mouth once daily. 90 tablet 3 estradiol (ESTRACE) 1 mg tablet Take 1 tablet by mouth once daily. 90 tablet 3 liothyronine (CYTOMEL) 5 mcg tablet Take 1 tablet by mouth once daily. 90 tablet 3 calcium carb,gluc/mag ox,gluc (CALCIUM MAGNESIUM ORAL) Take by mouth. COMPOUNDED PRESCRIPTION Testosterone 25MG/2.5 GM Cream Apply 1 Gram (4 Clicks) Topically Every Day As Directed 1 Tube 2 levothyroxine (SYNTHROID) 88 mcg tablet Take 1 tablet by mouth once daily. (Patient not taking: Reported on 09/22/2021 ) 90 tablet 3 No current facility-administered medications for this visit. Social History Tobacco Use Smoking status: Never Smoker Smokeless tobacco: Never Used Vaping Use Vaping Use: Never used Substance Use Topics Alcohol use: Not Currently Drug use: No Alcohol Use: Not Currently Tobacco Use: Never FAMILY HISTORY Problem Relation Age of Onset Diabetes Paternal Grandmother other (goiter) Paternal Grandmother great grandmother Review of Systems Constitutional: Positive for fever and malaise/fatigue. Respiratory: Positive for cough. Chest hurts on coughing Cardiovascular: Negative. Gastrointestinal: Negative. BP 106/65 Pulse 61 Temp 98.7 Resp 16 Wt 137 lb (62.1kg) SpO2 95% LMP 02/11/2006 Physical Exam Vitals reviewed. Constitutional: Appearance: Normal appearance. HENT: Nose: Nose normal. Mouth/Throat: Mouth: Mucous membranes are moist. Pharynx: Oropharynx is clear. Cardiovascular: Rate and Rhythm: Normal rate and regular rhythm. Pulmonary: Effort: Pulmonary effort is normal. No respiratory distress. Breath sounds: Rhonchi present. Neurological: Mental Status: She is alert. ASSESSMENT/PLAN: 1. Acute cough - ICD9: 786.2, ICD10: R05.1 (primary diagnosis) - XR CHEST 2V FRONTAL/LAT 2. Acute bronchitis, unspecified organism - ICD9: 466.0, ICD10: J20.9 - AZITHROMYCIN 250 MG TABLET - ALBUTEROL SULFATE HFA 90 MCG/ACTUATION AEROSOL INHALER - METHYLPREDNISOLONE 4 MG TABLETS IN A DOSE PACK Bennett Carpio MD documented in this encounterAshtabula [facility]06-29-2022 History of Present illness Narrative* Aileen Siddiqui APRN.ASSISTANT PROFESSOR OF ANTHROPOLOGY - 09/14/2021 3:47 PM EDT Юлия is a 60 year old who presents for an annual gynecologic exam without complaints. Postmenopausal: Yes HRT use: Yes, estrogen, progesterone, & testosterone How long: since 2014. Last Pap: 01/31/2018 normal HPV: 01/29/2018 negative History of abnormal pap: No Last mammogram: 2021 pending History of abnormal mammogram: Yes Sexually active: Yes Pain with intercourse: No Postcoital bleeding: No OB History T1 L1 SAB1 IAB0 Ectopic0 Multiple0 Live Births1 Comment: menarche [facility] Provider Network Mgr History LMP: 02/11/2006, Ablation Age at Menarche: Age at First : Age at Menopause: Provider Network Mgr History Comments: Sexual Activity: Not Currently; Male Contraception: Surgical, Tubal Ligation PAST MEDICAL HISTORY Diagnosis Date Elevated serum creatinine 1.21 Hormone replacement therapy (HRT) Malignant neoplasm of thyroid gland (HCC) radiation meopause hx of ablation Other abnormal Papanicolaou smear of cervix and cervical HPV(795.09) 2000 cryo/other facility Renal insufficiency 2017 PAST SURGICAL HISTORY Procedure Laterality Date LIGATE FALLOPIAN TUBE THYROIDECTOMY 2005 total FAMILY HISTORY Problem Relation Age of Onset Diabetes Paternal Grandmother other (goiter) Paternal Grandmother great grandmother SOCIAL HISTORY Social History Tobacco Use Smoking status: Never Smoker Smokeless tobacco: Never Used Vaping Use Vaping Use: Never used Substance Use Topics Alcohol use: Yes Comment: rare Drug use: No REVIEW OF SYSTEMS Abdomen: No abdominal pain, nausea, vomiting, diarrhea, or constipation. No bloating, early satiety, indigestion, or increased flatulence. Bladder: No dysuria, gross hematuria, urinary frequency, urinary urgency, or incontinence Breast: No breast lumps, nipple d/c, overlying skin changes, redness or skin retraction Allergies and current medication updated:Yes EXAM: LMP 02/11/2006 GENERAL: pleasant, female in no apparent distress HEENT: Normocephalic, atraumatic, mucus membranes moist and no lesions NECK: Supple, full range of motion, no adenopathy and thyroid normal DERMATOLOGY: Normal, without lesions, non-icteric and non-hirsute BREAST: soft, non-tender, symmetric, no dominant mass, normal nipple-areolar complex, no lymphadenopathy and no nipple discharge CHEST: Normal inspiratory effort ABDOMEN: soft, non-tender and no masses PELVIC: external genitalia normal, normal Bartholin's glands, urethra, Brunson's glands, no vulvar lesions, no cervical lesions, good vaginal support, physiologic discharge present, normal appearing perineal body and perianal region BIMANUAL: uterus normal size, shape and consistency, no adnexal masses and non-tender RECTOVAGINAL: deferred. NEURO: alert and oriented x3,exam grossly non-focal EXTREMITIES: normal ASSESSMENT/PLAN: 1) Health maintenance: Pap/HPV up to date. Mammogram ordered Mammogram up to date Nutrition, exercise and routine health maintenance exams reviewed. Calcium/Vitamin D supplementation information provided. Colon cancer screening: patient to discuss with PCP 2) Follow up one year or sooner as needed 3) Thyroid panel, CBC, CMP, Testosterone labs ordered Aileen Siddiqui APRN.CNP documented in this encounterAshtabula General [facility] History of Present illness Narrative* RT Toni(R) - 09/14/2021 3:40 PM EDT Radiology Service Progress Note PATIENT NAME: Юлия Sequeira DATE OF SERVICE: September 14, 2021 TIME: 3:32 PM PATIENT IDENTITY VERIFICATION COMPLETED USING TWO (2) IDENTIFIERS: Name and Date of confirmedby patient verbally. FALL SCREENING: Has the patient had 2 falls in the last year or 1 fall with injury or currently using an Ambulatory Assistive Device (Walker, Cane, Wheelchair, Crutches, etc.)? No PATIENT GENDER DATA: Female. status: : No status: NO. PATIENT RELEVANT IMPLANT DATA REVIEWED: Not Applicable RADIOLOGY DEPARTMENT: Mammography PERIPHERAL IV DATA: Not applicable SIGNED BY: RT Toni(R) September 14, 2021 3:32 PM [facility] of Past illness Narrative* Problem Noted Date Diagnosed Date Resolved Date Encounter for screening for malignant neoplasm of colon 03/22/2018 09/29/2022 Overview: Added automatically from request for surgery [id number] Headache disorder 07/06/2016 09/29/2022 Vitamin D deficiency 07/06/2016 023 Elevated serum creatinine documented as of this encounter (statuses as of 09/30/2022) [facility]ments Appointment Date:04/27/2022 03:15:00 PM Scheduled Provider:JEANNE FRANCO MD Location:[facility] Appointment Type:ENDO [facility] Diagnostic Tests Pending * [facility] Lab Send out (Blood Specimens) 03/24/22 [facility] Evaluation + Plan note Future Appointments Appointment Date:10/26/2022 04:00:00 PM Scheduled Provider:JEANNE FRANCO MD Location:[facility] Appointment Type:ENDO OV Diagnostic Tests Pending * Vitamin D, 1,25-Dihydroxy 09/08/22 [facility] Evaluation + Plan note Future Appointments Appointment Date:10/26/2022 04:00:00 PM Scheduled Provider:JEANNE FRANCO MD Location:[facility] Appointment Type:ENDO OV [facility] Evaluation + Plan note Future Appointments Appointment Date:02/21/2024 03:45:00 PM Scheduled Provider:JEANNE FRANCO MD Location:[facility] Appointment Type:ENDO OV Future Scheduled Tests Laboratory* Thyroid Stimulating Hormone 01/13/24 * Free T4 01/13/24 * Complete Blood Count 01/13/24 * Creatinine Random Urine 01/13/24 * Free T3 01/13/24 * Protein Random Urine 01/13/24 * Vitamin D Level 01/13/24 * Complete Metabolic Panel 01/13/24 * Ratio Prot/Creat Urine 01/13/24 [facility] Evaluation + Plan note Future Appointments Appointment Date:02/21/2024 03:45:00 PM Scheduled Provider:JEANNE FRANCO MD Location:[facility] Appointment Type:ENDO OV Future Scheduled Tests Laboratory* Thyroid Stimulating Hormone 02/08/24 * Free T4 02/08/24 * Creatinine Random Urine 01/13/24 * Protein Random Urine 01/13/24 * Ratio Prot/Creat Urine 01/13/24 [facility] Evaluation note* Diagnosis Encounter for gynecological examination (general) (routine) without abnormal findings- Primary Encounter for screening mammogram for breast cancer Long-term current use of testosterone replacement therapy Thyroid dysfunction Unspecified disorder of thyroid Hormone replacement therapy (HRT) Need for prophylactic hormone replacement therapy (postmenopausal) Low testosterone level in female Unspecified endocrine disorder [facility] Encounter for screening mammogram for breast cancer [facility] Diagnosis Acute cough- Primary Acute bronchitis, unspecified organism [facility] Diagnosis Acute maxillary sinusitis, recurrence not specified- Primary [facility] Diagnosis Encounter for gynecological examination (general) (routine) without abnormal findings- Primary Encounter for screening for human papillomavirus (HPV) Special screening examination for human papillomavirus (HPV) Pap smear for cervical cancer screening Screening for malignant neoplasm of the cervix Encounter for screening mammogram for breast cancer Encounter for screening for malignant neoplasm of colon Special screening for malignant neoplasms, colon Hormone replacement therapy (postmenopausal) Need for prophylactic hormone replacement therapy (postmenopausal) [facility] Diagnosis Hormone replacement therapy (postmenopausal) Need for prophylactic hormone replacement therapy (postmenopausal) [facility] Diagnosis Encounter for gynecological examination (general) (routine) without abnormal findings- Primary Encounter for screening for human papillomavirus (HPV) Special screening examination for human papillomavirus (HPV) Pap smear for cervical cancer screening Screening for malignant neoplasm of the cervix Encounter for screening mammogram for breast cancer documented in this encounter [facility]* Diagnosis Hormone replacement therapy (postmenopausal) Need for prophylactic hormone replacement therapy (postmenopausal) documented in this encounter [facility]* Diagnosis Hormone replacement therapy (postmenopausal) Need for prophylactic hormone replacement therapy (postmenopausal) documented in this encounter [facility]* Diagnosis Depression, unspecified depression type- Primary Other fatigue documented in this encounter [facility]* Diagnosis Depressive disorder- Primary Depressive disorder, not elsewhere classified documented in this encounter [facility] course Narrative No data available for this section [facility] Hospital Discharge instructions No data available for this section [facility] Progress note No data available for this section [facility] Reason for referral (narrative)* Diagnostic Procedure Only (Routine) - Pending Review Specialty Diagnoses / Procedures Referred By Anusha gold Referred To Contact [facility] Diagnoses Encounter for screening mammogram for breast cancer Procedures BLADIMIR SCREENING SCREENING MAMMOGRAPHY BI 2-VIEW BREAST INC CAD Aileen Siddiqui APRN.ASSISTANT PROFESSOR OF ANTHROPOLOGY [address] [place] [address] [facility] [address] [place] [phone] Referral ID Status Reason Start Date Expiration Date Visits Requested Visits Authorized [id number] Pending Review Auto-Generat ed Referral 09/14/2021 10/14/2022 1 1 [facility] (narrative)* Diagnostic Procedure Only (Routine) - Authorized Specialty Diagnoses / Procedures Referred By Anusha gold Referred To Contact [facility] Diagnoses Encounter for screening mammogram for breast cancer Procedures BLADIMIR SCREENING W TIGIST SCREENING DIGITAL BREAST TOMOSYNTHESIS BI SCREENING MAMMOGRAPHY BI 2-VIEW BREAST INC CAD Aileen Siddiqui APRN.CNP [address] [place] [address] [facility] [address] [place] [address] Referral ID Status Reason Start Date Expiration Date Visits Requested Visits Authorized [id number] Authorized Auto-Generat ed Referral 12/13/2023 01/11/2025 1 1 [facility]ative[facility]No reason for referral information availablePiney View [facility] Work Phone: Advance Directives No Advanced Directives Records FoundDocuments on File Type Date Recorded 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 Advance Directive(s) 04/02/2018 12:35 PM Documents on File Type Date Recorded 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 Advance Directive(s) 04/02/2018 12:35 PM Summary Purpose Family History No Family History Records Found Relationship Condition Age at Onset Recorded Date/T magaly father Malignant neoplasm Unknown mother Cardiac disease Unknown Kidney disorder Unknown Reason for Referral Specialty Diagnoses / Procedures Referred By Anusha gold Referred To Contact General Surgery Diagnoses Encounter for screening for malignant neoplasm of colon Procedures CONSULT TO GENERAL SURGERY OFFICE/OUTPATIENT [facility] MDM 60-74 MINUTES Aileen Siddiqui APRN.ASSISTANT PROFESSOR OF ANTHROPOLOGY [address] [place] [address] Referral ID Status Reason Start Date Expiration Date Visits Requested Visits Authorized [id number] Authorized PCP Requested Referral 09/29/2022 09/29/2023 1 1 Specialty Diagnoses / Procedures Referred By Anusha gold Referred To Contact [facility] Diagnoses Encounter for screening mammogram for breast cancer Procedures BLADIMIR SCREENING SCREENING MAMMOGRAPHY BI 2-VIEW BREAST INC CAD Aileen Siddiqui APRN.ASSISTANT PROFESSOR OF ANTHROPOLOGY [address] [place] [address] [facility] [address] [place] [address] Referral ID Status Reason Start Date Expiration Date Visits Requested Visits Authorized [id number] Pending Review Auto-Generat ed Referral 09/29/2022 10/29/2023 1 1 Chief Complaint and Reason for Visit Chief Complaint Admit Date 6 MO, LABS May 28, 2024 2:5 1pm MED ONC May 28, 2024 3:1 5pm Pre scope July 30, 2024 3:52p m Reason for Visit Admit Date Leukopenia May 28, 2024 2:5 1pm Additional Source Comments Source Comments (unrecognize d section and content) In the event this informatio n is protected by the Federal Confidentiality of Alcohol and Drug Abuse Patient Records regulations: The Federal rules restrict any use of the information to criminally investigate or prosecute any alcohol or drug abuse patient.[facility] the event this information is protected by the Federal Confidentiality of Alcohol and Drug Abuse Patient Records regulations: The Federal rules restrict any use of the information to criminally investigate or prosecute any alcohol or drug abuse patient.[facility] Hospital[facility] the event this information is protected by the Federal Confidentiality of Alcohol and Drug Abuse Patient Records regulations: The Federal rules restrict any use of the information to criminally investigate or prosecute any alcohol or drug abuse patient.[facility] Hospital[facility] the event this information is protected by the Federal Confidentiality of Alcohol and Drug Abuse Patient Records regulations: The Federal rules restrict any use of the information to criminally investigate or prosecute any alcohol or drug abuse patient.[facility] Hospital[facility] the event this information is protected by the Federal Confidentiality of Alcohol and Drug Abuse Patient Records regulations: The Federal rules restrict any use of the information to criminally investigate or prosecute any alcohol or drug abuse patient.[facility] Hospital[facility] the event this information is protected by the Federal Confidentiality of Alcohol and Drug Abuse Patient Records regulations: The Federal rules restrict any use of the information to criminally investigate or prosecute any alcohol or drug abuse patient.[facility] Hospital[facility] the event this information is protected by the Federal Confidentiality of Alcohol and Drug Abuse Patient Records regulations: The Federal rules restrict any use of the information to criminally investigate or prosecute any alcohol or drug abuse patient.[facility] Hospital[facility] the event this information is protected by the Federal Confidentiality of Alcohol and Drug Abuse Patient Records regulations: The Federal rules restrict any use of the information to criminally investigate or prosecute any alcohol or drug abuse patient.[facility] Hospital[facility] the event this information is protected by the Federal Confidentiality of Alcohol and Drug Abuse Patient Records regulations: The Federal rules restrict any use of the information to criminally investigate or prosecute any alcohol or drug abuse patient.[facility] Hospital[facility] the event this information is protected by the Federal Confidentiality of Alcohol and Drug Abuse Patient Records regulations: The Federal rules restrict any use of the information to criminally investigate or prosecute any alcohol or drug abuse patient.[facility] Hospital[facility] the event this information is protected by the Federal Confidentiality of Alcohol and Drug Abuse Patient Records regulations: The Federal rules restrict any use of the information to criminally investigate or prosecute any alcohol or drug abuse patient.[facility] HospitalIn the event this information is protected by the Federal Confidentiality of Alcohol and Drug Abuse Patient Records regulations: The Federal rules restrict any use of the information to criminally investigate or prosecute any alcohol or drug abuse patient.[facility] HospitalIn the event this information is protected by the Federal Confidentiality of Alcohol and Drug Abuse Patient Records regulations: The Federal rules restrict any use of the information to criminally investigate or prosecute any alcohol or drug abuse patient.[facility] HospitalIn the event this information is protected by the Federal Confidentiality of Alcohol and Drug Abuse Patient Records regulations: The Federal rules restrict any use of the information to criminally investigate or prosecute any alcohol or drug abuse patient.[facility] HospitalIn the event this information is protected by the Federal Confidentiality of Alcohol and Drug Abuse Patient Records regulations: The Federal rules restrict any use of the information to criminally investigate or prosecute any alcohol or drug abuse patient.[facility] HospitalIn the event this information is protected by the Federal Confidentiality of Alcohol and Drug Abuse Patient Records regulations: The Federal rules restrict any use of the information to criminally investigate or prosecute any alcohol or drug abuse patient.[facility] HospitalIn the event this information is protected by the Federal Confidentiality of Alcohol and Drug Abuse Patient Records regulations: The Federal rules restrict any use of the information to criminally investigate or prosecute any alcohol or drug abuse patient.[facility] HospitalIn the event this information is protected by the Federal Confidentiality of Alcohol and Drug Abuse Patient Records regulations: The Federal rules restrict any use of the information to criminally investigate or prosecute any alcohol or drug abuse patient.[facility] Reason for Visit (unrecogniz ed section and content) Reason Comments Well Woman Reason Comments Cough chest discomfort/ ti ghtness--4 days Reason Comments Results Reason Comments Sinusitis Headache, sinus gaston estion, 3 weeks ----right side flank pain-maybe from coughing and blowing nose Reason Comments Provider Network Mgr Exam Reason Comments Refill Request Reason Onset Date Comments Refill Request 11/20/2023 Reason Comments Covid Positive Reason Comments Medication Problem Reason Comments Medication Follow-up Care Teams (unrecognized sec tion and content) Budget Engineer Relationship Specialty Start Date End Date [facility] [address] [place] [address] PCP - General 05/13/03 Budget Engineer Relationship Specialty Start Date End Date [facility] [address] [place] [address] PCP - General 05/13/03 Budget Engineer Relationship Specialty Start Date End Date [facility] [address] [place] [address] PCP - General 05/13/03 Budget Engineer Relationship Specialty Start Date End Date [facility] [address] [place] [address] PCP - General 05/13/03 Budget Engineer Relationship Specialty Start Date End Date [facility] [address] [place] [address] PCP - General 05/13/03 Budget Engineer Relationship Specialty Start Date End Date [facility] [address] [place] [address] PCP - General 05/13/03 Budget Engineer Relationship Specialty Start Date End Date [facility] [address] [place] [address] PCP - General 05/13/03 Budget Engineer Relationship Specialty Start Date End Date [facility] [address] [place] [address] PCP - General 05/13/03 Budget Engineer Relationship Specialty Start Date End Date [facility] [address] [place] [id number] PCP - General 05/13/03 Budget Engineer Relationship Specialty Start Date End Date [facility]kys Jarvis [address] [place] [id number] PCP - General 05/13/03 Budget Engineer Relationship Specialty Start Date End Date Belkys Jarvis [address] [place] [address] PCP - General 05/13/03 Budget Engineer Relationship Specialty Start Date End Date Belkys Jarvis [address] [place] [address] PCP - General 05/13/03 Budget Engineer Relationship Specialty Start Date End Date Belkys Jarvis [address] [place] [address] PCP - General 05/13/03 Budget Engineer Relationship Specialty Start Date End Date [facility]kys Jarvis [address] [place] [id number] PCP - General 05/13/03 Budget Engineer Relationship Specialty Start Date End Date Belkys Jarvis [address] [place] [address] PCP - General 05/13/03 Budget Engineer Relationship Specialty Start Date End Date [facility]kys Jarvis [address] [place] [address] PCP - General 05/13/03 Team Status: Active Member Role Status Dates Daja Dozier ICING AND GLAZE MAKER, ICING AND GLAZE MAKER-C Primary Care Provider Activ e Team Status: Inactive Member Role Status Dates Daja Dozier ICING AND GLAZE MAKER, ICING AND GLAZE MAKER-C Primary Care Provider Activ e Start: May 28, 2024 End: May 28, 2024 Daja Dozier ICING AND GLAZE MAKER, ICING AND GLAZE MAKER-C Referring Provider Active Start: May 28, 2024 End: May 28, 2024 Dr. Darrell Barney MD Attending Provider Active S tart: May 28, 2024 End: May 28, 2024 Team Status: Active Member Role Status Dates Daja Dozier ICING AND GLAZE MAKER, ICING AND GLAZE MAKER-C Primary Care Provider Activ e Start: May 28, 2024 Dr. Darrell Barney MD Attending Provider Active S tart: May 28, 2024 Dr. Darrell Barney MD Referring Provider Active S tart: May 28, 2024 Team Status: Inactive Member Role Status Dates Daja Dozier ICING AND GLAZE MAKER, ICING AND GLAZE MAKER-C Primary Care Provider Activ e Start: July 30, 2024 End: July 30, 2024 Daja Dozier ICING AND GLAZE MAKER, ICING AND GLAZE MAKER-C Referring Provider Active Start: July 30, 2024 End: July 30, 2024 MARY Caruso Attending Provider Active Start: July 30, 2024 End: July 30, 2024 Budget Engineer Relationship Specialty Start Date End Date [facility] [address] [address] [place] [address] PCP - General 05/13/03 INFORMATION SOURCE (unrecogn ized section and content) DATE CREATED AUTHOR 09/23/2021 [facility]ter DATE CREATED AUTHOR AUTHOR'S ORGANIZ ATION 11/05/2023 [facility] ([place]) DATE CREATED AUTHOR AUTHOR'S ORGANIZ ATION 06/28/2024 [facility] DATE CREATED AUTHOR AUTHOR'S ORGANIZ ATION 08/15/[address] [facility] DATE CREATED AUTHOR AUTHOR'S ORGANIZ ATION 08/24/2024 [facility] DATE CREATED AUTHOR AUTHOR'S ORGANIZ ATION 08/26/2024 [facility] DATE CREATED AUTHOR AUTHOR'S ORGANIZ ATION 09/28/2024 [facility] Care Team (unrecognized sect ion and content) Care Team Personnel Name: BELKYS JARVIS MD Position: P4 Physician - Primary Care Member Role: Primary Care Physician Address: Address: [address] [place] [address]- Care Team Related Persons Name: LIZZETTE SEQUEIRA Address: [address] [place] [id number] Goals (unrecognized section and content) Goals may be documented in a n alternate section FOR RECORDS PERTAINING TO PATIENTS WHO ARE OR HAVE BEEN ENROLLED IN A CHEMICAL DEPENDENCY/SUBSTANCEABUSE PROGRAM, SOME INFORMATION MAY BE OMITTED. This clinical summary was aggregated from multiple sources. Caution should be exercised in using it in the provision of clinical care. This summary normalizes information from multiple sources, and as a consequence, information in this document may materially change the coding, format and clinical context of patient data. In addition, data may be omitted in some cases. CLINICAL DECISIONS SHOULD BE BASED ON THE PRIMARY CLINICAL RECORDS. [facility] [employer] provides no warranty or guarantee of the accuracy or completeness of information in this document.
[2024-10-03] MEDS: Lactated Ringers 1,000 ML 15 ML IV (05:52)
--- NOTE | 2024-10-03 06:30 | EGD_PTH ---
PATIENT: SMILEY MONSON LOC: EN U#:[id number] AGE/SX: 63/F ROOM: RE10/03/[address]: Dr. Td Wood DO : 1960 BED: DIS: 10/03/2024 SPEC #: [id number] RECD: 10/03/24 08:01 STATUS: BRENT CARLEY #: [id number] ESTEFANIA: 10/03/24 06:[address]: Td Wood DEPT: SURGICAL PATHOLOGY RECD BY: Yandy Haynes ENTERED: 10/03/24 15:06 SP TYPE: EGD BIOPSY RACHNA DR: Daja Henderson, CYLINDER PRESS OPERATOR-C Tissues: A - Gastric mucous membrane B - Duodenum, NOS C - Esophagus, NOS Procedures: Immunohistochemical Stains Surgery Specimen Level IV HEADER OPERATION: EGD and biopsy PRE-OP DIAGNOSIS: Gastritis TISSUE SUBMITTED: A- Gastric body biopsy, B- Duodenum biopsy, C- Distal esophagus biopsy MICROSCOPIC DIAGNOSIS A. Gastric body, biopsy: - Gastric oxyntic mucosa with features of reactive gastropathy. - IHC negative for H.pylori organisms. B. Duodenum, biopsy: - Normal villous architecture without increased intraepithelial lymphocytes. - George gland hyperplasia. C. Distal esophagus, biopsy: - Squamous mucosa with mild reactive change. - Columnar mucosa negative for goblet cell metaplasia. MICROSCOPIC DESCRIPTION Slides are reviewed. All matched controls reacted appropriately. These tests were developed and their performance characteristics determined by [facility]. They may not have been cleared or approved by the U.S. Food and Drug Administration. The FDA has determined that such clearance or approval is not necessary. The above immunohistochemical/dualISH markers are viewed by the Pathologist. GROSS DESCRIPTION A. Received in fixative is one container labeled with the patient's name and designated Gastric body biopsy. The specimen consists of two irregular fragments of light jennings soft tissue that in aggregate measure 0.6 x 0.3 x 0.2 cm. The specimen is totally submitted in one cassette. B. Received in fixative is one container labeled with the patient's name and designated Duodenum biopsy. The specimen consists of multiple irregular fragments of light jennings soft tissue that in aggregate measure 0.7 x 0.5 x 0.2 cm. The specimen is totally submitted in one cassette. C. Received in fixative is one container labeled with the patient's name and designated Distal esophagus biopsy. The specimen consists of multiple irregular fragments of light jennings soft tissue that in aggregate measure 0.7 x 0.3 x 0.2 cm. The specimen is totally submitted in one cassette. 10/03/2024 CPT:12703u6,21265
--- NOTE | 2024-10-03 06:30 | PCM.PRE.AN2 ---
ASA Classification* ASA Classification ASA Classification: 2 Assessment & Plan Anesthesia* Anesthesia Assessment Anesthesia Assessment: Discussed sedation and/or anesthesia options, risks, benefits, and alternatives with patient/parents/legal guardian/POA. Questions invited. The patient/parents/legal guardian/POA seems to understand and agrees to proceed with anesthesia plan. Reviewed the physical assessment, medical history, allergy history and patient home medications list prior to surgery/procedure/anesthetic and documented any changes. Performed airway and anesthesia risk assessments. Anesthesia Type Anesthesia Type: MAC History Source History Obtained from:: Patient and Chart Anesthesia Focused Assessment* Temperature: 97.9 F Pulse Rate: 50 Blood Pressure: 121/73 Respiratory Rate: 16 Pulse Ox: 100 Oxygen Delivery Method: Room Air Airway Assessment Mouth opens: >3 cm Mallampati Score: III Teeth Condition: Caps/Crowns (Patient has several crowns.) and Lower (Left lower permanent bridge. It is tight.) Neck Range of motion (ROM): Limited ROM (Slight Decrease) Labs Anesthesia Preop lab: CBC WBC 5.5 K/mm3 (4.4-11.0) 05/28/24 14:58 05/28/24 RBC 3.86 M/mm3 (4.2-5.4) L 05/28/24 14:58 05/28/24 Hgb 12.3 g/dL (12.0-15.0) 05/28/24 14:58 05/28/24 Hct 36.8 % (37-47) L 05/28/24 14:58 05/28/24 Plt Count 223 K/mm3 (150-450) 05/28/24 14:58 05/28/24 CHEMISTRY Potassium 3.8 mmol/L (3.3-5.1) 05/28/24 14:58 05/28/24 Sodium 137 mmol/L (133-145) 05/28/24 14:58 05/28/24 Magnesium 2.7 mg/dL (1.6-2.6) H 11/21/23 14:30 11/21/23 Phosphorus 3.0 mg/dL (2.5-4.9) 11/21/23 14:30 11/21/23 BUN 28 mg/dL (4-19) H 05/28/24 14:58 05/28/24 Creatinine 1.21 mg/dL (0.70-1.20) H 05/28/24 14:58 05/28/24 Glucose 92 mg/dL (70-99) 05/28/24 14:58 05/28/24 COAG Pre-Assessment Diagnosis/Proposed Procedure Planned Operative Procedure(s): EGD Anesthesia History 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 When Was Last Pacemaker Check QUESTION #4 FULL TEXT: You/Your Family Experience fever (hyperthermia) with Anesthesia Last Oral Intake Last Oral intake: Last Oral Intake NPO since 04:00 10/03/24 05:48 Meds taken in AM with sips of water? Meds patient instructed to take am of surgery Any additional information?: Yes NPO since: 04:00 Meds taken in AM with sips of water?: Yes PONV PONV - coning machine operator: PONV - coning machine operator Female Yes 09/30/24 09:47 HX of Motion Sickness No 09/30/24 09:47 HX of N/V After Surgery No 09/30/24 09:47 Non-Smoker Yes 09/30/24 09:47 Duration of Surgery greater No 09/30/24 09:47 than 60 minutes Number of Risk Factors 2 09/30/24 09:47 PONV Score Moderate Risk 09/30/24 09:47 Height & Weight Height & Weight: Anesthesia: Height & Weight Height 5 ft 6 in 10/03/24 05:48 Weight: 63.7 kg 10/03/24 05:48 Body Mass Index (BMI) 22.6 10/03/24 05:48 Respiratory Assessment Respiratory Assessment - coning machine operator: Respiratory Tract Infection Hx - coning machine operator Hx Respiratory Tract Infection No 09/30/24 09:47 STOP Sleep Apnea STOP Sleep Apnea - coning machine operator: STOP Sleep Apnea - coning machine operator Hx Hypertension No 09/30/24 09:47 Hx Sleep Apnea No 09/30/24 09:47 CPAP BIPAP Do you snore loudly (louder No 09/30/24 09:47 than talking or can be heard Do you often feel tired/ No 09/30/24 09:47 fatigued/ sleepy during daytime? Has anyone observed you stop No 09/30/24 09:47 breathing during sleep? STOP Results Negative 09/30/24 09:47 QUESTION #5 FULL TEXT : Do you snore loudly (louder than talking or can be heard through closed doors)? Tobacco Use History Tobacco Use History - coning machine operator: Tobacco Use History - coning machine operator Tobacco Use Smoking Status Never smoker 09/30/24 09:47 Hx Tobacco Use No 09/30/24 09:47 Years Smoking Packs Smoked per Day Smoking Cessation Date was within the last 15 years Hx Smoking Cessation Date Hx Smoking Cessation Counseling Hematologic Medial History Hematologic Hx - coning machine operator: Hematologic Medical Hx - inspector aide Hx of Blood Transfusion No 09/30/24 09:47 Hx of Transfusion in last 3 No 09/30/24 09:47 Months Date of Last Transfusion (if within last 3 months) Ever experience any problems No 09/30/24 09:47 with transfusion(s)? Specify any problems Hx of Preganancy in last 3 No 09/30/24 09:47 Months Nurse Filling Out Transfusion [email or web address] 09/30/24 09:47 & Questions: Date: 09/30/24 09/30/24 09:47 Time: 09:50 09/30/24 09:47 Patient unable to answer at this time (ie. confused, unrespo /Reproduction History /Reproductive History - coning machine operator: /Reproductive Hx- coning machine operator Hx Now Gestational Age (in weeks): EDC: Hx Hx Para Hx Section SAB Active Medications Active Medications: Current Medications Generic Name Dose Route Start Last Admin Trade Name Freq PRN Reason Stop Dose Admin Lactated Ringer's 1,000 mls @ 15 mls/hr 10/03/24 05:45 10/03/24 05:52 IV 15 mls/hr .Q48H SASHA Administration PFSH Medical History Wears contact lenses Depression Vitamin D deficiency Thyroid cancer CKD (chronic kidney disease), stage III Neutropenia Leukopenia Renal disease Hypothyroidism Home Medications ?Medication ?Instructions ?Recorded ?Last Taken ?Type estradiol 1 mg tablet 1 mg PO DAILY 05/11/23 Unknown History progesterone micronized 100 mg 100 mg PO DAILY 05/11/23 Unknown History capsule amino acids 1 ea PO DAILY 11/21/23 Unknown History liothyronine 5 mcg tablet 10 mcg PO DAILY 11/21/23 10/03/24 04:00 History 10 mcg magnesium 250 mg tablet 500 mg PO QDAY 11/21/23 Unknown History bupropion HCl 300 mg 24 hr tablet, 300 mg PO DAILY 09/30/24 10/03/24 04:00 History extended release levothyroxine 88 mcg tablet 88 mcg PO DAILY 09/30/24 10/03/24 04:00 History (Levoxyl) Allergy/AdvReac Type Severity Reaction Status Date / Time No Known Allergies Allergy Verified 10/03/24 05:47 Family History Father Cancer stomach Mother Heart disease Kidney disease Surgical History History of tubal ligation History of thyroid surgery Social History Smoking Status: Never smoker alcohol intake: never substance use type: does not use Review of Systems (Anesthesia) ROS Narrative System reviewed and no additional complaints, except as documented.
--- NOTE | 2024-10-03 06:36 | PCM.HP.STD ---
HPI - General General Date of Admission: 10/03/24 Date of Service: 10/03/24 Chief Complaint: Abnormal CT scan HPI Narrative HPI HPI Chief Complaint: CT showing gastritis Details: SMILEY MONSON, is a 63 F who presents to the office today for establishment with [facility]. CT abd/pelvis 06.26.24; normal spleen, mild wall thickening of the body and antrum of the stomach with increased mucosal/submucosal inhancement. Suggestive of gastritis/peptic ulcer disease. Pt here today after referral from PCP for abnormal CT showing gastritis/peptic ulcer disease. Pt underwent CT due to intermittent left sided abdominal pain. She denies any heartburn, n/v, early satiety or weight loss. She has a family hx of gastric cancer in her father and diverticulitis in her mother. She has never had an EGD. Last colonoscopy was in Jan 2024 with normal findings. She recently was found to be hypothyroid and was started on levothyroxine. This has caused her to gain weight but she is feeling better since starting new medication [facility] Medical History Wears contact lenses Depression Vitamin D deficiency Thyroid cancer CKD (chronic kidney disease), stage III Neutropenia Leukopenia Renal disease Hypothyroidism Home Medications ?Medication ?Instructions ?Recorded ?Last Taken ?Type estradiol 1 mg tablet 1 mg PO DAILY 05/11/23 Unknown History progesterone micronized 100 mg 100 mg PO DAILY 05/11/23 Unknown History capsule amino acids 1 ea PO DAILY 11/21/23 Unknown History liothyronine 5 mcg tablet 10 mcg PO DAILY 11/21/23 10/03/24 04:00 History 10 mcg magnesium 250 mg tablet 500 mg PO QDAY 11/21/23 Unknown History bupropion HCl 300 mg 24 hr tablet, 300 mg PO DAILY 09/30/24 10/03/24 04:00 History extended release levothyroxine 88 mcg tablet 88 mcg PO DAILY 09/30/24 10/03/24 04:00 History (Levoxyl) Allergy/AdvReac Type Severity Reaction Status Date / Time No Known Allergies Allergy Verified 10/03/24 05:47 Family History Father Cancer stomach Mother Heart disease Kidney disease Surgical History History of tubal ligation History of thyroid surgery Social History Smoking Status: Never smoker alcohol intake: never substance use type: does not use ROS Constitutional Constitutional: Denies fatigue, fever(s), poor appetite, weight gain or weight loss Gastrointestinal Gastrointestinal: Denies belching, bloating, change in bowel habits, change in stool character, chewing difficulty, coffee ground emesis, constipation, cramping, diarrhea, dyspepsia, dysphagia, early satiety, excessive flatus, fecal incontinence, heartburn, hematemesis, hematochezia, hemorrhoids, loose stools, melena, nausea, odynophagia, rectal bleeding, tenesmus, vomiting or weight changes Vital Signs Vital Signs Vital Signs: 10/03/24 05:48 10/03/24 05:48 Temperature 97.9 F Temperature Source Temporal Pulse Rate 50 L Respiratory Rate 16 Respiratory Pattern Normal Blood Pressure 121/73 H Blood Pressure Mean 89 Blood Pressure Source Monitor Blood Pressure Position Sitting Blood Pressure Location Left Arm Pulse Ox 100 Oxygen Delivery Method Room Air Weight Weight: 140 lb 6.951 oz Body Mass Index (BMI) 22.6 Physical Exam Const alert, oriented x3, no apparent distress and healthy appearing General Appearance: cooperative GI normal to inspection, nondistended, normoactive bowel sounds, soft to palpation, non-tender and non-distended Percussion: normal to percussion Rectal Exam: deferred Assessment & Plan Assessment/Plan (1) Gastritis: PLAN: Assessment and Plan Assessment and Plan (1) Gastritis: Status: Acute Plan: This is a 63 yo female pt here today for evaluation after CT suggestive gastritis/peptic ulcer disease. Pt denies any heartburn, n,v, early satiety or unintentional weight loss. She endorses a family hx of gastric cancer in her father. She will undergo EGd to assess her upper GI tract for inflammation, ulcer or malignancy.
--- NOTE | 2024-10-03 07:01 | OP.EGD_ITS ---
Patient Name: Юлия Sequeira Procedure Date: 10/03/2024 6:13 AM Date of : 1960 Age: 63 Procedure: Upper GI endoscopy Indications: Epigastric abdominal pain, Abdominal pain in the left upper quadrant, Abnormal CT of the GI tract Providers: Td Wood DO Referring MD: Coretta Gant Medicines: Monitored Anesthesia Care Patient Profile: This is a 63 year old female. Refer to note in patient chart for documentation of history and physical. Patient has symptoms of acute left upper quadrant abdominal pain, chronic epigastric abdominal pain and chronic dyspepsia. Complications: No immediate complications. Procedure: Pre-Anesthesia Assessment: - Prior to the procedure, a History and Physical was performed, and patient medications and allergies were reviewed. The patient is competent. The risks and benefits of the procedure and the sedation options and risks were discussed with the patient. All questions were answered and informed consent was obtained. Patient identification and proposed procedure were verified by the physician in the pre-procedure area. Mental Status Examination: alert and oriented. Airway Examination: normal oropharyngeal airway and neck mobility. Respiratory Examination: clear to auscultation. CV Examination: normal. Prophylactic Antibiotics: The patient does not require prophylactic antibiotics. Prior Anticoagulants: The patient has taken no anticoagulant or antiplatelet agents except for NSAID medication. ASA Grade Assessment: II - A patient with mild systemic disease. After reviewing the risks and benefits, the patient was deemed in satisfactory condition to undergo the procedure. The anesthesia plan was to use monitored anesthesia care (MAC). Immediately prior to administration of medications, the patient was re-assessed for adequacy to receive sedatives. The heart rate, respiratory rate, oxygen saturations, blood pressure, adequacy of pulmonary ventilation, and response to care were monitored throughout the procedure. The physical status of the patient was re-assessed after the procedure. After obtaining informed consent, the endoscope was passed under direct vision. Throughout the procedure, the patient's blood pressure, pulse, and oxygen saturations were monitored continuously. The gastroscope was introduced through the mouth, and advanced to the third part of the duodenum. Small bowel enteroscopy was deemed necessary. The upper GI endoscopy was accomplished without difficulty. The patient tolerated the procedure well. Scope In: 6:48:19 AM Scope Out: 6:51:13 AM Total Procedure Duration Time 0 hours 2 minutes 54 seconds Findings: The Z-line was irregular and was found 40 cm from the incisors. Biopsies were taken with a cold forceps for histology. Verification of patient identification for the specimen was done by the nurse. Biopsies were taken with a cold forceps for histology. Verification of patient identification for the specimen was done. Estimated blood loss was minimal. Patchy mild inflammation characterized by erythema was found in the gastric body. Biopsies were taken with a cold forceps for histology. Verification of patient identification for the specimen was done. Estimated blood loss was minimal. Biopsies were taken with a cold forceps for Helicobacter pylori testing. Verification of patient identification for the specimen was done. Estimated blood loss was minimal. Patchy mildly erythematous mucosa without active bleeding and with no stigmata of bleeding was found in the entire duodenum. Biopsies were taken with a cold forceps for histology. Verification of patient identification for the specimen was done. Estimated blood loss was minimal. Impression: - Z-line irregular, 40 cm from the incisors. Biopsied. - Chronic gastritis. Biopsied. - Erythematous duodenopathy. Biopsied. Recommendation: - Discharge patient to home. - Resume previous diet. - Continue present medications. - Await pathology results. Procedure Code(s): --- Professional --- 41642, Small intestinal endoscopy, enteroscopy beyond second portion of duodenum, not including ileum; with biopsy, single or multiple CPT copyright 2021 [employer]. All rights reserved. The codes documented in this report are preliminary and upon folding machine setter review may be revised to meet current compliance requirements. Td Wood DO 10/03/2024 7:00:54 AM This report has been signed electronically. Number of Addenda: 0 Note Initiated On: 10/03/2024 6:13 AM
--- NOTE | 2024-10-03 07:01 | OP.CCLET_ITS ---
10/03/2024 Coretta Gant Re : Upper GI endoscopy procedure for Юлия Sequeira Dear Beatriz This procedure was performed on Thursday, October 03, 2024. My impressions and recommendations are as follows: Impressions : - Z-line irregular, 40 cm from the incisors. Biopsied. - Chronic gastritis. Biopsied. - Erythematous duodenopathy. Biopsied. Recommendations : - Discharge patient to home. - Resume previous diet. - Continue present medications. - Await pathology results. My findings are described in the full procedure note, which is enclosed. If I can be of further assistance, please feel free to contact me at . Sincerely, Td Wood, 10/03/2024 7:00:54 AM This report has been signed electronically.
--- NOTE | 2024-10-03 07:02 | PCM.POST.ANE ---
Anesthesia: Postop Eval I Current Vital Signs Temperature: 97 F Pulse Rate: 62 Blood Pressure: 105/65 Respiratory Rate: 14 Pulse Ox: 99 Oxygen Delivery Method: Room Air Assessment Airway patent: Yes Spontaneous unlabored respirations: Yes Mental status: Asleep nausea: No Vomiting: No Anesthesia Complication: No Fluid Hydration Crystalloid volume administer (ml): 300 Total IV fluid infused: 300 Progress Note Anesthesia document: Postop Eval 1 completed: Yes
--- NOTE | 2024-10-03 12:13 | PCM.POSTANE2 ---
Anesthesia Postop Eval I Sum Postop Eval Completion status Anesthesia document: Postop Eval 1 completed: Yes Anesthesia Postop Eval I Summary Anesthesia Postop Eval I Summary: Anesthesia Postop Eval I: Assessment Summary Airway patent Yes 10/03/24 07:03 [email or web address] Spontaneous unlabored Yes 10/03/24 07:03 [email or web address] respirations Mental status Asleep 10/03/24 07:03 [email or web address] nausea No 10/03/24 07:03 [email or web address] Vomiting No 10/03/24 07:03 [email or web address] Anesthesia Postop Eval I: Fluid Summary Crystalloid volume administer 300 10/03/24 07:03 [email or web address] (ml) Colloids volume administered ( ml) Blood Product volume administered (ml) Total IV fluid infused 300 10/03/24 07:03 [email or web address] Anesthesia Postop Eval I: Summary Notes Anesthesia Complication No 10/03/24 07:03 [email or web address] Anesthesia Complication Comment: Post-operative progress note Anesthesia: Postop Eval II Evaluation Mental status: Awake and Calm Pain Level: 0 nausea: No Vomiting: No Complications Anesthesia Complication: No
--- NOTE | 2024-10-03 14:14 | PCM.POSTANE2 ---
Anesthesia Postop Eval I Sum Postop Eval Completion status Anesthesia document: Postop Eval 1 completed: Yes Anesthesia Postop Eval I Summary Anesthesia Postop Eval I Summary: Anesthesia Postop Eval I: Assessment Summary Airway patent Yes 10/03/24 07:03 [email or web address] Spontaneous unlabored Yes 10/03/24 07:03 [email or web address] respirations Mental status Awake,Calm 10/03/24 12:13 nausea No 10/03/24 12:13 Vomiting No 10/03/24 12:13 Anesthesia Postop Eval I: Fluid Summary Crystalloid volume administer 300 10/03/24 07:03 [email or web address] (ml) Colloids volume administered ( ml) Blood Product volume administered (ml) Total IV fluid infused 300 10/03/24 07:03 [email or web address] Anesthesia Postop Eval I: Summary Notes Anesthesia Complication No 10/03/24 12:13 Anesthesia Complication Comment: Post-operative progress note Anesthesia: Postop Eval II Evaluation Mental status: Awake Pain Level: 0 nausea: No Vomiting: No
== END 2024-10-03 07:48 | disposition home or self-care (01) ==
LOC: EN 05:16 → AC 05:20
PROVIDERS: PCP Registered Nurse; Referring Provider Registered Nurse; Visit Provider Internal Medicine Gastroenterology
PROC: 0DJ08ZZ Inspection of Upper Intestinal Tract, Via Natural or Artificial Opening Endoscopic (ICD-10-PCS; CPT 43235; principal; 2024-10-03 06:25)
DX: R93.3 Abnormal findings on diagnostic imaging of other parts of digestive tract (principal); N18.30 Chronic kidney disease, stage 3 unspecified; K29.50 Unspecified chronic gastritis without bleeding; Z85.00 Personal history of malignant neoplasm of unspecified digestive organ; E03.9 Hypothyroidism, unspecified; Z79.890 Hormone replacement therapy; F32.A Depression, unspecified; Z79.899 Other long term (current) drug therapy; Z98.51 Tubal ligation status; K22.89 Other specified disease of esophagus; K31.89 Other diseases of stomach and duodenum
CPT/HCPCS: 43239; 88305; 88342; J2405